=== PATIENT | male | born 1945 | race Two or more races ===

== ENCOUNTER 2022-05-07 11:58 | Inpatient (IN) | payer OTHER, MEDICARE, MEDICAID ==
[~2022-05-07] VITALS: Ht 175.3 cm; Wt 81.8 kg
[~2022-05-07 11:58] MED LIST: ALB0.5UD IH; AMLO2.5T2 PO; ASPI-1265 PO; CARB15DR2 OP; CHOL10002 PO; FLUO-167 PO; PROP40TA72 PO; SIMV-42 PO; TRIA15CR61 TOP
[2022-05-07 12:56] LABS: BASOPHILS # (AUTO) 0.1 X10'3 (0-0.2); BASOPHILS % (AUTO) 0.3 % (0-1); EOSINOPHILS % (AUTO) 0 % (0-6); HEMATOCRIT 41.3 % (42.0-52.0); HEMOGLOBIN 13.1 g/dl (14.0-17.9); LYMPHOCYTES # (AUTO) 0.6 X10'3 (1.1-4.8); LYMPHOCYTES % (AUTO) 2.5 % (21-51); MEAN CORPUSCULAR HEMOGLOBIN 29.7 PG (27.0-31.0); MEAN CORPUSCULAR HGB CONC 31.8 g/dL (33.0-36.5); MEAN CORPUSCULAR VOLUME 93.6 FL (78-98); MEAN PLATELET VOLUME 9.7 FL (7.4-10.4); MONOCYTES # (AUTO) 0.6 X10'3 (0-0.9); MONOCYTES % (AUTO) 2.3 % (2-12); NEUTROPHILS # (AUTO) 22.9 X10'3 (1.8-7.7); NEUTROPHILS % (AUTO) 94.9 % (42-75); PLATELET COUNT 261 X10'3 (140-440); RED BLOOD COUNT 4.42 X10'6 (4.70-6.10); RED CELL DISTRIBUTION WIDTH 14.3 % (11.5-14.5); WHITE BLOOD COUNT 24.2 X10'3 (4.5-11.0)
[2022-05-07 13:06] LABS: ALANINE AMINOTRANSFERASE 15 U/L (12-78); ALBUMIN 2.8 G/DL (3.4-5.0); ALBUMIN/GLOBULIN RATIO 0.6 (1.1-1.5); ALKALINE PHOSPHATASE 92 IU/L (46-116); ANION GAP 8 (8-16); ASPARTATE AMINO TRANSFERASE 11 U/L (10-37); BILIRUBIN,TOTAL 0.9 MG/DL (0.1-1.0); BLOOD UREA NITROGEN 49 MG/DL (7-18); BUN/CREATININE RATIO 22.8 (5.4-32.0); CALCIUM 9.4 MG/DL (8.5-10.1); CHLORIDE 99 MMOL/L (99-107); CREATININE 2.15 MG/DL (0.60-1.10); GLUCOSE 122 MG/DL (70-104); POTASSIUM 4.2 MMOL/L (3.5-5.1); SODIUM 140 MMOL/L (135-145); TOTAL CARBON DIOXIDE 33.5 MMOL/L (24-32); TOTAL PROTEIN 7.4 G/DL (6.4-8.2); eGFR 30 ML/MIN
[2022-05-07 13:24] LABS: PLATELET ESTIMATE NORMAL; TOTAL CELLS COUNTED 100; TOXIC GRANULATION 1+; TOXIC VACUOLATION FEW
[2022-05-07] MEDS ORDERED: normal saline 1000ml 1,000 ML IV ONE (13:30)
[2022-05-07] MEDS ORDERED: CefTRIAXone 2gm/D5W 50ml BAG 50 ML IV ONE (14:45)
[2022-05-07 14:46] LABS: CLARITY,URINE CLOUDY (Clear); COLOR,URINE YELLOW (Yellow); GLUCOSE, URINE NEGATIVE (Neg); KETONES,URINE NEGATIVE (Neg); LEUKOCYTE ESTERASE ,URINE SMALL (Neg); NITRITES, URINE NEGATIVE (Neg); OCCULT BLOOD,URINE MODERATE (Neg); PH,URINE 5.5 (4.8-8.0); PROTEIN,URINE 100 mg/dl (Neg)
[2022-05-07 14:47] LABS: UA COLLECTION TYPE STRAIGHT CATH
[2022-05-07 14:53] LABS: BACTERIA,URINE 3+ /HPF (Neg); WBC,URINE 50-100 /HPF (0-4)
[2022-05-07 14:54] LABS: MUCUS STRANDS MODERATE /LPF (Neg); SQUAMOUS EPITHELIAL CELL,UR NONE SEEN /LPF (FEW); WBC CLUMPS,URINE FEW /HPF (NEGATIVE)
[2022-05-07] MEDS ORDERED: normal saline 1000ML IV soln IVB ONE (15:40)
[2022-05-07] MEDS ORDERED: acetaminophen 325mg tablet PO PRN (16:15)
[2022-05-07] MEDS ORDERED: mag hydrox/Alum hydrox/simeth 30ml oral suspension PO PRN (16:15)
[2022-05-07] MEDS ORDERED: morphine 2 MG/ML inj. syringe IV PRN ×2 (16:15)
[2022-05-07] MEDS ORDERED: HYDROcodone/acetaminophen 5mg/325mg tablet PO PRN (16:15)
[2022-05-07] MEDS ORDERED: ALBU90AE INH (17:39)
[2022-05-07] MEDS ORDERED: ASCO-23 PO (17:39)
[2022-05-07] MEDS ORDERED: FERR324T23 PO (17:39)
[2022-05-07] MEDS ORDERED: AMLO10TA PO (17:39)
[2022-05-07] MEDS ORDERED: EMOL396C TOP (17:39)
[2022-05-07] MEDS ORDERED: ACET-1131 PO (17:39)
[2022-05-07] MEDS ORDERED: FLO0.4C PO (17:39)
[2022-05-07] MEDS ORDERED: METH-798 PO (17:39)
[2022-05-07] MEDS ORDERED: MOME13HF12 INH (17:39)
[2022-05-07] MEDS ORDERED: CARV25TA2 PO (17:39)
[2022-05-07] MEDS ORDERED: LISI20TA28 PO (17:39)
[2022-05-07] MEDS ORDERED: GUAI5SYR5 PO (17:39)
[2022-05-07] MEDS ORDERED: FURO-150 PO (17:39)
[2022-05-07] MEDS ORDERED: POLY119P2 PO (17:39)
[2022-05-07] MEDS ORDERED: TIOT18CA3 PO (17:39)
[2022-05-07] MEDS ORDERED: HYDR-4069 PO (17:39)
[2022-05-07] MEDS ORDERED: TRAM50TA2 PO (17:39)
[2022-05-07] MEDS: normal saline 1000ml 1,000 ML IV SCH (17:52)
[2022-05-07] MEDS ORDERED: non-formulary drug (Acetaminophen 1 TAB) PO PRN (17:55)
[2022-05-07] MEDS ORDERED: polyvinyl alcohol ophthalmic drops 15ml bottle EACHEYE PRN (17:55)
[2022-05-07] MEDS ORDERED: non-formulary drug (Albuterol Sulfate (Proair Respiclick) 2 PUFFS) INH PRN (17:55)
[2022-05-07] MEDS: ferrous gluconate 324mg tablet PO SCH (20:00)
[2022-05-07] MEDS: ipratropium/albuterol 3ml nebule NEB SCH (20:50)
[2022-05-07] MEDS: budesonide 0.5mg/2ml UD nebule IH SCH (20:51)
[2022-05-07] MEDS: mineral oil/petrolatum, white cream 60gm jar TP SCH (21:00)
[2022-05-08] MEDS: docusate sod 100mg capsule PO SCH ×3 (00:10→19:21)
[2022-05-08] MEDS: ascorbic acid 500mg tablet PO SCH ×3 (00:11→19:21)
[2022-05-08] MEDS: carVEDilol 12.5mg tablet PO SCH ×3 (00:11→19:21)
[2022-05-08] MEDS: ipratropium/albuterol 3ml nebule NEB SCH ×4 (02:07→20:10)
[2022-05-08] MEDS: normal saline 1000ml 1,000 ML IV SCH ×3 (02:15→17:24)
[2022-05-08 03:49] LABS: BASOPHILS % (AUTO) 0.1 % (0-1); EOSINOPHILS % (AUTO) 0.1 % (0-6); HEMATOCRIT 34.4 % (42.0-52.0); HEMOGLOBIN 11.1 g/dl (14.0-17.9); LYMPHOCYTES # (AUTO) 0.8 X10'3 (1.1-4.8); LYMPHOCYTES % (AUTO) 4.3 % (21-51); MEAN CORPUSCULAR HEMOGLOBIN 30.6 PG (27.0-31.0); MEAN CORPUSCULAR HGB CONC 32.2 g/dL (33.0-36.5); MEAN PLATELET VOLUME 9.3 FL (7.4-10.4); MONOCYTES # (AUTO) 0.6 X10'3 (0-0.9); MONOCYTES % (AUTO) 3.4 % (2-12); NEUTROPHILS # (AUTO) 16.7 X10'3 (1.8-7.7); NEUTROPHILS % (AUTO) 92.1 % (42-75); PLATELET COUNT 228 X10'3 (140-440); RED BLOOD COUNT 3.62 X10'6 (4.70-6.10); RED CELL DISTRIBUTION WIDTH 14.5 % (11.5-14.5); WHITE BLOOD COUNT 18.2 X10'3 (4.5-11.0)
[2022-05-08 04:00] LABS: ALBUMIN 2.2 G/DL (3.4-5.0); ANION GAP 7 (8-16); BLOOD UREA NITROGEN 49 MG/DL (7-18); BUN/CREATININE RATIO 26.2 (5.4-32.0); CALCIUM 9.2 MG/DL (8.5-10.1); CHLORIDE 106 MMOL/L (99-107); CREATININE 1.87 MG/DL (0.60-1.10); GLUCOSE 109 MG/DL (70-104); SODIUM 144 MMOL/L (135-145); TOTAL CARBON DIOXIDE 30.9 MMOL/L (24-32); eGFR 35 ML/MIN
[2022-05-08] MEDS: mineral oil/petrolatum, white cream 60gm jar TP SCH ×4 (08:00→21:58)
[2022-05-08] MEDS: polyethylene glycol 3350 17gm powd pack PO SCH (08:00)
--- NOTE | 2022-05-08 09:49 | NUR ---
Received patient to room 353 from ER in bed saturated with urine and stool. [place] care performed, new gown on and linens changed. Patient alert and oriented in no apparent acute distress and denies pain or discomfort at this time. Patient oriented to room and call lightl. Call light placed within patient's reach. Bed low and locked. Patient agreeable to condom cath. Patient states he does "not really get up out of bed" and has a caregiver that assist at home "4 times a week." Will continue to monitor.
[2022-05-08] MEDS: budesonide 0.5mg/2ml UD nebule IH SCH ×2 (09:50→20:10)
[2022-05-08] MEDS: cholecalciferol (vitamin D3) 1,000 unit (25mcg) tablet PO SCH ×2 (09:56→09:58)
[2022-05-08 09:57] VITALS: BP 131/77
[2022-05-08] MEDS: tamsulosin 0.4mg capsule PO SCH (09:58)
[2022-05-08] MEDS: amLODIPine 5mg tablet PO SCH (09:58)
[2022-05-08] MEDS: aspirin 81mg tab.chew PO SCH (09:59)
[2022-05-08] MEDS: FLUoxetine 20mg capsule PO SCH (09:59)
[2022-05-08] MEDS: enoxaparin 40mg/0.4ml syringe SUBCUT SCH (10:00)
[2022-05-08] MEDS: ferrous gluconate 324mg tablet PO SCH ×2 (10:02→19:21)
[2022-05-08] MEDS: CefTRIAXone/D5W-Rocephin 1gm 50 ML IV SCH (10:43)
[2022-05-08 18:49] VITALS: BP 155/81
[2022-05-08] MEDS: traMADol 50MG tablet PO PRN (19:21)
[2022-05-09] MEDS: ipratropium/albuterol 3ml nebule NEB SCH ×4 (03:18→20:31)
[2022-05-09] MEDS: normal saline 1000ml 1,000 ML IV SCH ×3 (03:47→22:59)
--- NOTE | 2022-05-09 06:23 | NUR ---
Problems reprioritized. Patient report given, questions answered & plan of care reviewed with RYAN Dela Cruz.
[2022-05-09 06:32] LABS: BASOPHILS % (AUTO) 0.1 % (0-1); EOSINOPHILS % (AUTO) 0.1 % (0-6); HEMOGLOBIN 10.5 g/dl (14.0-17.9); LYMPHOCYTES # (AUTO) 0.8 X10'3 (1.1-4.8); LYMPHOCYTES % (AUTO) 6.4 % (21-51); MEAN CORPUSCULAR HEMOGLOBIN 30.3 PG (27.0-31.0); MEAN CORPUSCULAR HGB CONC 31.9 g/dL (33.0-36.5); MEAN CORPUSCULAR VOLUME 94.8 FL (78-98); MEAN PLATELET VOLUME 9.6 FL (7.4-10.4); MONOCYTES # (AUTO) 0.8 X10'3 (0-0.9); MONOCYTES % (AUTO) 6.5 % (2-12); NEUTROPHILS % (AUTO) 86.9 % (42-75); PLATELET COUNT 209 X10'3 (140-440); RED BLOOD COUNT 3.48 X10'6 (4.70-6.10); RED CELL DISTRIBUTION WIDTH 14.4 % (11.5-14.5); WHITE BLOOD COUNT 12.7 X10'3 (4.5-11.0)
[2022-05-09 07:00] VITALS: BP 138/72
[2022-05-09 07:37] LABS: ALBUMIN 2.1 G/DL (3.4-5.0); ANION GAP 7 (8-16); BLOOD UREA NITROGEN 42 MG/DL (7-18); BUN/CREATININE RATIO 30.2 (5.4-32.0); CALCIUM 9.2 MG/DL (8.5-10.1); CHLORIDE 106 MMOL/L (99-107); CREATININE 1.39 MG/DL (0.60-1.10); GLUCOSE 103 MG/DL (70-104); POTASSIUM 3.7 MMOL/L (3.5-5.1); SODIUM 141 MMOL/L (135-145); TOTAL CARBON DIOXIDE 27.7 MMOL/L (24-32); eGFR 49 ML/MIN
[2022-05-09] MEDS: polyethylene glycol 3350 17gm powd pack PO SCH (08:00)
[2022-05-09] MEDS: docusate sod 100mg capsule PO SCH ×2 (08:00→20:00)
[2022-05-09] MEDS: aspirin 81mg tab.chew PO SCH (08:07)
[2022-05-09] MEDS: ferrous gluconate 324mg tablet PO SCH ×2 (08:07→20:13)
[2022-05-09] MEDS: enoxaparin 40mg/0.4ml syringe SUBCUT SCH (08:07)
[2022-05-09] MEDS: ascorbic acid 500mg tablet PO SCH ×2 (08:08→20:13)
[2022-05-09] MEDS: amLODIPine 5mg tablet PO SCH (08:08)
[2022-05-09] MEDS: carVEDilol 12.5mg tablet PO SCH ×2 (08:08→20:14)
[2022-05-09] MEDS: tamsulosin 0.4mg capsule PO SCH (08:08)
[2022-05-09] MEDS: FLUoxetine 20mg capsule PO SCH (08:08)
[2022-05-09] MEDS: mineral oil/petrolatum, white cream 60gm jar TP SCH ×4 (08:09→20:22)
[2022-05-09] MEDS: CefTRIAXone/D5W-Rocephin 1gm 50 ML IV SCH (08:09)
[2022-05-09] MEDS: budesonide 0.5mg/2ml UD nebule IH SCH ×2 (08:22→20:31)
[2022-05-09 11:00] VITALS: BP 123/74
--- NOTE | 2022-05-09 12:03 | NUR ---
Page sent to : Yazan YOON: daughter (lEi) would like to speak with you whenever you get a chance regarding discharge plan. her # is [phone]. thank you! :)
[2022-05-09 18:00] VITALS: BP 105/69
--- NOTE | 2022-05-09 18:11 | NUR ---
Problems reprioritized. Patient report given, questions answered & plan of care reviewed with RYAN ROBLES.
--- NOTE | 2022-05-09 18:30 | NUR ---
Patient in room [facility]. I have received report from Caruthers and had the opportunity to ask questions and assume patient care.
[2022-05-09 22:00] VITALS: BP 125/71
[2022-05-10] MEDS: ipratropium/albuterol 3ml nebule NEB SCH ×4 (03:23→20:12)
[2022-05-10 06:00] VITALS: BP 148/76
--- NOTE | 2022-05-10 06:14 | NUR ---
Problems reprioritized. Patient report given, questions answered & plan of care reviewed with Terese.
[2022-05-10 07:00] LABS: BASOPHILS % (AUTO) 0.1 % (0-1); EOSINOPHILS # (AUTO) 0.1 X10'3 (0-0.9); HEMOGLOBIN 10.6 g/dl (14.0-17.9); LYMPHOCYTES # (AUTO) 0.9 X10'3 (1.1-4.8); LYMPHOCYTES % (AUTO) 9.8 % (21-51); MEAN CORPUSCULAR HEMOGLOBIN 31.1 PG (27.0-31.0); MEAN CORPUSCULAR HGB CONC 33.1 g/dL (33.0-36.5); MEAN CORPUSCULAR VOLUME 93.9 FL (78-98); MEAN PLATELET VOLUME 9.1 FL (7.4-10.4); MONOCYTES # (AUTO) 0.8 X10'3 (0-0.9); MONOCYTES % (AUTO) 9.1 % (2-12); NEUTROPHILS # (AUTO) 7.2 X10'3 (1.8-7.7); PLATELET COUNT 207 X10'3 (140-440); RED BLOOD COUNT 3.41 X10'6 (4.70-6.10); RED CELL DISTRIBUTION WIDTH 14.5 % (11.5-14.5)
[2022-05-10 07:14] LABS: ALBUMIN 1.9 G/DL (3.4-5.0); ANION GAP 3 (8-16); BLOOD UREA NITROGEN 27 MG/DL (7-18); BUN/CREATININE RATIO 22.5 (5.4-32.0); CALCIUM 9.1 MG/DL (8.5-10.1); CHLORIDE 106 MMOL/L (99-107); GLUCOSE 105 MG/DL (70-104); POTASSIUM 3.4 MMOL/L (3.5-5.1); SODIUM 141 MMOL/L (135-145); eGFR 59 ML/MIN
--- NOTE | 2022-05-10 07:14 | NUR ---
Patient in room [facility]. I have received report from Nayeli DAVIS and had the opportunity to ask questions and assume patient care.
[2022-05-10] MEDS: docusate sod 100mg capsule PO SCH ×2 (08:00→20:00)
[2022-05-10] MEDS: CefTRIAXone/D5W-Rocephin 1gm 50 ML IV SCH (08:11)
[2022-05-10] MEDS: ferrous gluconate 324mg tablet PO SCH ×2 (08:15→21:17)
[2022-05-10] MEDS: aspirin 81mg tab.chew PO SCH (08:15)
[2022-05-10] MEDS: cholecalciferol (vitamin D3) 1,000 unit (25mcg) tablet PO SCH (08:15)
[2022-05-10] MEDS: carVEDilol 12.5mg tablet PO SCH ×2 (08:15→21:17)
[2022-05-10] MEDS: ascorbic acid 500mg tablet PO SCH ×2 (08:16→21:17)
[2022-05-10] MEDS: tamsulosin 0.4mg capsule PO SCH (08:17)
[2022-05-10] MEDS: FLUoxetine 20mg capsule PO SCH (08:17)
[2022-05-10] MEDS: amLODIPine 5mg tablet PO SCH (08:17)
[2022-05-10] MEDS: polyethylene glycol 3350 17gm powd pack PO SCH (08:18)
[2022-05-10] MEDS: mineral oil/petrolatum, white cream 60gm jar TP SCH ×4 (08:19→21:17)
[2022-05-10] MEDS: enoxaparin 40mg/0.4ml syringe SUBCUT SCH (08:19)
[2022-05-10] MEDS: budesonide 0.5mg/2ml UD nebule IH SCH ×2 (08:58→20:12)
[2022-05-10 10:00] VITALS: BP 124/78
--- NOTE | 2022-05-10 10:29 | NUR ---
PAGER ID: [phone] MESSAGE: [phone]- Adolfo Bonilla is 3.4. Do you want replacement protocol ordered?- Kiah [phone]
[2022-05-10 11:21] VITALS: BP 124/78
[2022-05-10] MEDS: normal saline 1000ml 1,000 ML IV SCH (14:15)
[2022-05-10 18:00] VITALS: BP 134/73
--- NOTE | 2022-05-10 18:48 | NUR ---
Problems reprioritized. Patient report given, questions answered & plan of care reviewed with RYAN Renteria.
[2022-05-10 22:00] VITALS: BP 129/77
[2022-05-11] MEDS: normal saline 1000ml 1,000 ML IV SCH ×3 (00:15→20:15)
[2022-05-11] MEDS: ipratropium/albuterol 3ml nebule NEB SCH ×4 (03:42→19:59)
[2022-05-11 05:59] LABS: BASOPHILS % (AUTO) 0.4 % (0-1); EOSINOPHILS # (AUTO) 0.1 X10'3 (0-0.9); EOSINOPHILS % (AUTO) 1.6 % (0-6); HEMOGLOBIN 10.9 g/dl (14.0-17.9); LYMPHOCYTES # (AUTO) 1.2 X10'3 (1.1-4.8); LYMPHOCYTES % (AUTO) 13.4 % (21-51); MEAN CORPUSCULAR HEMOGLOBIN 30.7 PG (27.0-31.0); MEAN CORPUSCULAR HGB CONC 33.2 g/dL (33.0-36.5); MEAN CORPUSCULAR VOLUME 92.6 FL (78-98); MEAN PLATELET VOLUME 9.5 FL (7.4-10.4); MONOCYTES # (AUTO) 0.8 X10'3 (0-0.9); MONOCYTES % (AUTO) 8.4 % (2-12); NEUTROPHILS # (AUTO) 6.9 X10'3 (1.8-7.7); NEUTROPHILS % (AUTO) 76.2 % (42-75); PLATELET COUNT 226 X10'3 (140-440); RED BLOOD COUNT 3.56 X10'6 (4.70-6.10); RED CELL DISTRIBUTION WIDTH 13.9 % (11.5-14.5); WHITE BLOOD COUNT 9.1 X10'3 (4.5-11.0)
[2022-05-11 06:00] LABS: ANION GAP 6 (8-16); BLOOD UREA NITROGEN 23 MG/DL (7-18); BUN/CREATININE RATIO 20.2 (5.4-32.0); CALCIUM 9.6 MG/DL (8.5-10.1); CHLORIDE 104 MMOL/L (99-107); CREATININE 1.14 MG/DL (0.60-1.10); GLUCOSE 110 MG/DL (70-104); POTASSIUM 3.7 MMOL/L (3.5-5.1); SODIUM 143 MMOL/L (135-145); TOTAL CARBON DIOXIDE 33.5 MMOL/L (24-32); eGFR 62 ML/MIN
--- NOTE | 2022-05-11 07:01 | NUR ---
Patient in room [facility]. I have received report from AVA DAVIS and had the opportunity to ask questions and assume patient care.
[2022-05-11 07:07] VITALS: BP 135/60
[2022-05-11] MEDS: aspirin 81mg tab.chew PO SCH (08:41)
[2022-05-11] MEDS: ferrous gluconate 324mg tablet PO SCH ×2 (08:42→20:07)
[2022-05-11] MEDS: docusate sod 100mg capsule PO SCH ×2 (08:42→20:06)
[2022-05-11] MEDS: carVEDilol 12.5mg tablet PO SCH ×2 (08:42→20:06)
[2022-05-11] MEDS: tamsulosin 0.4mg capsule PO SCH (08:43)
[2022-05-11] MEDS: ascorbic acid 500mg tablet PO SCH ×2 (08:43→20:06)
[2022-05-11] MEDS: FLUoxetine 20mg capsule PO SCH (08:43)
[2022-05-11] MEDS: amLODIPine 5mg tablet PO SCH (08:43)
[2022-05-11] MEDS: polyethylene glycol 3350 17gm powd pack PO SCH (08:44)
[2022-05-11] MEDS: CefTRIAXone/D5W-Rocephin 1gm 50 ML IV SCH (08:44)
[2022-05-11] MEDS: cholecalciferol (vitamin D3) 1,000 unit (25mcg) tablet PO SCH (08:44)
[2022-05-11] MEDS: mineral oil/petrolatum, white cream 60gm jar TP SCH ×4 (08:45→20:15)
[2022-05-11] MEDS: enoxaparin 40mg/0.4ml syringe SUBCUT SCH (08:45)
[2022-05-11] MEDS: budesonide 0.5mg/2ml UD nebule IH SCH ×2 (09:13→19:58)
[2022-05-11 10:00] VITALS: BP 112/71
--- NOTE | 2022-05-11 18:27 | NUR ---
Problems reprioritized. Patient report given, questions answered & plan of care reviewed with ROBBY DAVIS.
[2022-05-11 19:00] VITALS: BP 129/79
--- NOTE | 2022-05-11 19:00 | NUR ---
Patient in room [facility]. I have received report from RYAN Augustin and had the opportunity to ask questions and assume patient care. Addendum: 05/11/22 at 1903 by Ana Au RN Amended: Links added.
[2022-05-11] MEDS: magnesium hydroxide 30ml (MOM) UD suspension PO PRN (20:05)
[2022-05-11] MEDS: acetaminophen 325mg tablet PO PRN (20:08)
[2022-05-11 22:00] VITALS: BP 138/81
[2022-05-12] MEDS: ipratropium/albuterol 3ml nebule NEB SCH ×4 (02:54→20:12)
[2022-05-12 05:42] LABS: BASOPHILS % (AUTO) 0.3 % (0-1); EOSINOPHILS # (AUTO) 0.2 X10'3 (0-0.9); HEMATOCRIT 32.6 % (42.0-52.0); HEMOGLOBIN 10.9 g/dl (14.0-17.9); LYMPHOCYTES # (AUTO) 1.4 X10'3 (1.1-4.8); LYMPHOCYTES % (AUTO) 17.1 % (21-51); MEAN CORPUSCULAR HEMOGLOBIN 30.7 PG (27.0-31.0); MEAN CORPUSCULAR HGB CONC 33.3 g/dL (33.0-36.5); MEAN CORPUSCULAR VOLUME 92.3 FL (78-98); MEAN PLATELET VOLUME 8.8 FL (7.4-10.4); MONOCYTES # (AUTO) 0.7 X10'3 (0-0.9); MONOCYTES % (AUTO) 8.7 % (2-12); NEUTROPHILS % (AUTO) 71.9 % (42-75); PLATELET COUNT 269 X10'3 (140-440); RED BLOOD COUNT 3.54 X10'6 (4.70-6.10); RED CELL DISTRIBUTION WIDTH 14.2 % (11.5-14.5); WHITE BLOOD COUNT 8.4 X10'3 (4.5-11.0)
[2022-05-12 05:51] LABS: ANION GAP 3 (8-16); BLOOD UREA NITROGEN 22 MG/DL (7-18); BUN/CREATININE RATIO 21.4 (5.4-32.0); CALCIUM 9.6 MG/DL (8.5-10.1); CHLORIDE 103 MMOL/L (99-107); CREATININE 1.03 MG/DL (0.60-1.10); GLUCOSE 115 MG/DL (70-104); POTASSIUM 3.5 MMOL/L (3.5-5.1); SODIUM 144 MMOL/L (135-145); TOTAL CARBON DIOXIDE 38.3 MMOL/L (24-32); eGFR 70 ML/MIN
[2022-05-12 07:11] VITALS: BP 142/81
[2022-05-12 07:11] LABS: PLATELET ESTIMATE NORMAL; TOTAL CELLS COUNTED 100
[2022-05-12] MEDS: budesonide 0.5mg/2ml UD nebule IH SCH ×2 (08:20→20:12)
[2022-05-12] MEDS: ferrous gluconate 324mg tablet PO SCH ×2 (09:03→21:39)
[2022-05-12] MEDS: tamsulosin 0.4mg capsule PO SCH (09:03)
[2022-05-12] MEDS: polyethylene glycol 3350 17gm powd pack PO SCH (09:03)
[2022-05-12] MEDS: aspirin 81mg tab.chew PO SCH (09:04)
[2022-05-12] MEDS: cholecalciferol (vitamin D3) 1,000 unit (25mcg) tablet PO SCH (09:04)
[2022-05-12] MEDS: ascorbic acid 500mg tablet PO SCH ×2 (09:05→21:38)
[2022-05-12] MEDS: amLODIPine 5mg tablet PO SCH (09:05)
[2022-05-12] MEDS: docusate sod 100mg capsule PO SCH ×2 (09:05→21:37)
[2022-05-12] MEDS: carVEDilol 12.5mg tablet PO SCH ×2 (09:06→21:40)
[2022-05-12] MEDS: FLUoxetine 20mg capsule PO SCH (09:06)
[2022-05-12] MEDS: CefTRIAXone/D5W-Rocephin 1gm 50 ML IV SCH (09:07)
[2022-05-12] MEDS: enoxaparin 40mg/0.4ml syringe SUBCUT SCH (09:07)
[2022-05-12] MEDS: mineral oil/petrolatum, white cream 60gm jar TP SCH ×4 (09:13→21:40)
[2022-05-12 10:57] VITALS: BP 128/78
--- NOTE | 2022-05-12 12:29 | NUR ---
Initial: Pt admit DX acute metabolic encephalopathy secondary to UTI-now resolved, sepsis secondary to UTI, DEREK, and COPD per EMR. PO fluctuates ~53% avg initial heart healthy meals up to 100% at times though overall partially meeting estimated needs. DUC recommends Ensure Plus High Protein TIDWM; notified. LBM 05/08 receiving routine Fe but also colace, miralax, and PRN MoM provided 05/11 per EMR; constipation likely to influence PO. Will monitor for further nutrition intervention needs this admit. Rec: 1. continue heart healthy diet; if poor PO trends persist liberalize to regular; encourage PO 2. Ensure Plus High Protein TIDWM; pending physician verification in EMR 3. routine bowel regimen; utilize PRN bowel care given 4 days constipation receiving PO Fe 4. weekly wts Addendum: 05/12/22 at [address] Amended: Links added.
[2022-05-12 18:00] VITALS: BP 142/74
--- NOTE | 2022-05-12 18:30 | NUR ---
Patient in room [facility]. I have received report from Charli DAVIS and had the opportunity to ask questions and assume patient care.
--- NOTE | 2022-05-12 19:00 | NUR ---
Problems reprioritized. Patient report given, questions answered & plan of care reviewed with Snehal DAVIS.
[2022-05-12 21:42] VITALS: BP 135/75
[2022-05-12] MEDS: PEG 400/HYPROMELLOSE/GLYCERIN 15ml bottle EACHEYE PRN (21:59)
[2022-05-13] VITALS: BP 132/69
[2022-05-13] MEDS: ipratropium/albuterol 3ml nebule NEB SCH ×4 (02:41→20:17)
[2022-05-13 06:00] VITALS: BP 127/64
--- NOTE | 2022-05-13 06:20 | NUR ---
Problems reprioritized. Patient report given, questions answered & plan of care reviewed with Charli RN.
[2022-05-13] MEDS: tamsulosin 0.4mg capsule PO SCH (07:53)
[2022-05-13] MEDS: docusate sod 100mg capsule PO SCH ×2 (07:53→19:25)
[2022-05-13] MEDS: aspirin 81mg tab.chew PO SCH (07:53)
[2022-05-13] MEDS: FLUoxetine 20mg capsule PO SCH (07:53)
[2022-05-13] MEDS: amLODIPine 5mg tablet PO SCH (07:54)
[2022-05-13] MEDS: cholecalciferol (vitamin D3) 1,000 unit (25mcg) tablet PO SCH (07:54)
[2022-05-13] MEDS: ferrous gluconate 324mg tablet PO SCH ×2 (07:54→19:25)
[2022-05-13] MEDS: ascorbic acid 500mg tablet PO SCH ×2 (07:54→19:25)
[2022-05-13] MEDS: carVEDilol 12.5mg tablet PO SCH ×2 (07:55→19:24)
[2022-05-13] MEDS: polyethylene glycol 3350 17gm powd pack PO SCH (07:55)
[2022-05-13] MEDS: mineral oil/petrolatum, white cream 60gm jar TP SCH ×4 (07:56→19:25)
[2022-05-13] MEDS: enoxaparin 40mg/0.4ml syringe SUBCUT SCH (07:56)
[2022-05-13] MEDS: CefTRIAXone/D5W-Rocephin 1gm 50 ML IV SCH (07:57)
[2022-05-13] MEDS: budesonide 0.5mg/2ml UD nebule IH SCH ×2 (08:30→20:17)
[2022-05-13 11:00] VITALS: BP 114/64
[2022-05-13 18:00] VITALS: BP 110/46
--- NOTE | 2022-05-13 18:38 | NUR ---
Problems reprioritized. Patient report given, questions answered & plan of care reviewed with Ashly DAVIS.
[2022-05-13 22:00] VITALS: BP 130/74
[2022-05-13] MEDS: traMADol 50MG tablet PO PRN (22:54)
[2022-05-14] MEDS: ipratropium/albuterol 3ml nebule NEB SCH ×4 (03:52→20:06)
[2022-05-14 06:00] VITALS: BP 138/60
--- NOTE | 2022-05-14 06:30 | NUR ---
Problems reprioritized. Patient report given, questions answered & plan of care reviewed with RYAN TOTH.
--- NOTE | 2022-05-14 06:46 | NUR ---
Patient in room [facility]. I have received report from Ashly DAVIS and had the opportunity to ask questions and assume patient care.
[2022-05-14] MEDS: docusate sod 100mg capsule PO SCH ×2 (07:46→19:36)
[2022-05-14] MEDS: FLUoxetine 20mg capsule PO SCH (07:47)
[2022-05-14] MEDS: tamsulosin 0.4mg capsule PO SCH (07:47)
[2022-05-14] MEDS: carVEDilol 12.5mg tablet PO SCH ×2 (07:48→19:36)
[2022-05-14] MEDS: aspirin 81mg tab.chew PO SCH (07:48)
[2022-05-14] MEDS: amLODIPine 5mg tablet PO SCH (07:48)
[2022-05-14] MEDS: ferrous gluconate 324mg tablet PO SCH ×2 (07:49→19:36)
[2022-05-14] MEDS: polyethylene glycol 3350 17gm powd pack PO SCH (07:49)
[2022-05-14] MEDS: CefTRIAXone/D5W-Rocephin 1gm 50 ML IV SCH (07:49)
[2022-05-14] MEDS: ascorbic acid 500mg tablet PO SCH ×2 (07:49→19:36)
[2022-05-14] MEDS: cholecalciferol (vitamin D3) 1,000 unit (25mcg) tablet PO SCH (07:49)
[2022-05-14] MEDS: enoxaparin 40mg/0.4ml syringe SUBCUT SCH (07:51)
[2022-05-14] MEDS: mineral oil/petrolatum, white cream 60gm jar TP SCH ×4 (07:51→19:36)
[2022-05-14] MEDS: traMADol 50MG tablet PO PRN (07:59)
[2022-05-14] MEDS: budesonide 0.5mg/2ml UD nebule IH SCH ×2 (08:20→20:06)
[2022-05-14 11:58] VITALS: BP 95/41
[2022-05-14 12:22] VITALS: BP 101/68
--- NOTE | 2022-05-14 18:19 | NUR ---
Problems reprioritized. Patient report given, questions answered & plan of care reviewed with EDGARDO DAVIS.
[2022-05-14 21:59] VITALS: BP 125/75
[2022-05-15] MEDS: ipratropium/albuterol 3ml nebule NEB SCH ×4 (02:58→20:19)
[2022-05-15 07:00] VITALS: BP 129/74
--- NOTE | 2022-05-15 07:01 | NUR ---
Problems reprioritized. Patient report given, questions answered & plan of care reviewed with kait Soto.
[2022-05-15] MEDS: polyethylene glycol 3350 17gm powd pack PO SCH (08:00)
[2022-05-15] MEDS: budesonide 0.5mg/2ml UD nebule IH SCH ×2 (08:04→20:19)
[2022-05-15] MEDS: CefTRIAXone/D5W-Rocephin 1gm 50 ML IV SCH (08:42)
[2022-05-15] MEDS: aspirin 81mg tab.chew PO SCH (08:43)
[2022-05-15] MEDS: enoxaparin 40mg/0.4ml syringe SUBCUT SCH (08:43)
[2022-05-15] MEDS: ascorbic acid 500mg tablet PO SCH ×2 (08:44→21:32)
[2022-05-15] MEDS: FLUoxetine 20mg capsule PO SCH (08:44)
[2022-05-15] MEDS: cyclobenzaprine 10mg tablet PO PRN ×2 (08:44→21:32)
[2022-05-15] MEDS: tamsulosin 0.4mg capsule PO SCH (08:44)
[2022-05-15] MEDS: cholecalciferol (vitamin D3) 1,000 unit (25mcg) tablet PO SCH (08:45)
[2022-05-15] MEDS: carVEDilol 12.5mg tablet PO SCH ×2 (08:45→21:33)
[2022-05-15] MEDS: ferrous gluconate 324mg tablet PO SCH ×2 (08:45→21:32)
[2022-05-15] MEDS: docusate sod 100mg capsule PO SCH ×2 (08:46→20:00)
[2022-05-15] MEDS: amLODIPine 5mg tablet PO SCH (08:48)
[2022-05-15] MEDS: mineral oil/petrolatum, white cream 60gm jar TP SCH ×4 (08:48→21:33)
--- NOTE | 2022-05-15 13:14 | NUR ---
[address] [employer] did not scan
[2022-05-15 14:46] VITALS: BP 103/64
[2022-05-15 18:00] VITALS: BP 137/71
[2022-05-15] MEDS: ondansetron/PF 4mg/2ml inj IV PRN (21:32)
[2022-05-15 21:33] VITALS: BP 123/76
[2022-05-16] MEDS: ipratropium/albuterol 3ml nebule NEB SCH ×4 (03:44→20:05)
--- NOTE | 2022-05-16 06:40 | NUR ---
Problems reprioritized. Patient report given, questions answered & plan of care reviewed with RYAN MCKEON.
[2022-05-16 07:32] VITALS: BP 117/69
[2022-05-16] MEDS: docusate sod 100mg capsule PO SCH ×2 (08:00→20:00)
[2022-05-16] MEDS: polyethylene glycol 3350 17gm powd pack PO SCH (08:00)
[2022-05-16] MEDS: budesonide 0.5mg/2ml UD nebule IH SCH ×2 (09:06→20:05)
[2022-05-16] MEDS: FLUoxetine 20mg capsule PO SCH (09:18)
[2022-05-16] MEDS: cholecalciferol (vitamin D3) 1,000 unit (25mcg) tablet PO SCH (09:19)
[2022-05-16] MEDS: ascorbic acid 500mg tablet PO SCH ×2 (09:19→20:00)
[2022-05-16] MEDS: tamsulosin 0.4mg capsule PO SCH (09:19)
[2022-05-16] MEDS: PEG 400/HYPROMELLOSE/GLYCERIN 15ml bottle EACHEYE PRN (09:20)
[2022-05-16] MEDS: carVEDilol 12.5mg tablet PO SCH ×2 (09:20→20:00)
[2022-05-16] MEDS: aspirin 81mg tab.chew PO SCH (09:20)
[2022-05-16] MEDS: amLODIPine 5mg tablet PO SCH (09:20)
[2022-05-16] MEDS: ferrous gluconate 324mg tablet PO SCH ×2 (09:20→20:00)
[2022-05-16] MEDS: enoxaparin 40mg/0.4ml syringe SUBCUT SCH (09:21)
[2022-05-16] MEDS: traMADol 50MG tablet PO PRN ×2 (09:24→20:00)
[2022-05-16] MEDS: mineral oil/petrolatum, white cream 60gm jar TP SCH ×4 (09:29→20:06)
[2022-05-16 11:00] VITALS: BP 94/59
--- NOTE | 2022-05-16 11:48 | NUR ---
Reassessment: PO intake has significantly improved, documented with average 89% PO intake since 05/13 meeting 100% estimated energy needs and 79% estimated protein needs. ONS still pending physician approval in EMR though may not be indicated in view of improved PO intake. See nutrition interventions below that were d/w dietary to provide additional nutrition. LBM 05/15. Will continue to follow. Recommendations: 1. Continue heart healthy diet 2. Ensure Plus High Protein TIDWM; pending physician verification in EMR though may no longer be indicated in d/t improved meal intake 3. Yogurt WB, smoothie BIDLD 4. Routine bowel care 5. Weekly scaled weights Addendum: 05/16/22 at [address] Amended: Links added.
[2022-05-16] MEDS: ondansetron/PF 4mg/2ml inj IV PRN (13:57)
[2022-05-16 18:00] VITALS: BP 105/66
[2022-05-16 19:56] VITALS: BP 106/63
[2022-05-16 22:00] VITALS: BP_SYST 101; BP_SYST 137; BP_DIAS 57; BP_DIAS 86
[2022-05-17] MEDS: ipratropium/albuterol 3ml nebule NEB SCH ×4 (03:32→20:36)
[2022-05-17 05:30] VITALS: BP 119/76
--- NOTE | 2022-05-17 06:30 | NUR ---
Patient in room [facility]. I have received report from RYAN Worthy and had the opportunity to ask questions and assume patient care.
--- NOTE | 2022-05-17 06:44 | NUR ---
Problems reprioritized. Patient report given, questions answered & plan of care reviewed with RYAN MA.
[2022-05-17] MEDS ORDERED: mineral oil/petrolatum, white cream 60gm jar TP PRN (07:35)
[2022-05-17] MEDS ORDERED: MINERAL OIL/PETROLATUM,WHITE CREAM 107 GM TUBE TP PRN (07:44)
[2022-05-17] MEDS: budesonide 0.5mg/2ml UD nebule IH SCH ×2 (07:56→20:36)
[2022-05-17 08:12] LABS: BASOPHILS # (AUTO) 0.1 X10'3 (0-0.2); BASOPHILS % (AUTO) 0.6 % (0-1); EOSINOPHILS # (AUTO) 0.2 X10'3 (0-0.9); EOSINOPHILS % (AUTO) 1.6 % (0-6); HEMATOCRIT 36.2 % (42.0-52.0); HEMOGLOBIN 11.7 g/dl (14.0-17.9); LYMPHOCYTES # (AUTO) 1.8 X10'3 (1.1-4.8); LYMPHOCYTES % (AUTO) 15.8 % (21-51); MEAN CORPUSCULAR HEMOGLOBIN 29.8 PG (27.0-31.0); MEAN CORPUSCULAR HGB CONC 32.2 g/dL (33.0-36.5); MEAN CORPUSCULAR VOLUME 92.6 FL (78-98); MEAN PLATELET VOLUME 8.2 FL (7.4-10.4); MONOCYTES # (AUTO) 0.7 X10'3 (0-0.9); MONOCYTES % (AUTO) 5.9 % (2-12); NEUTROPHILS # (AUTO) 8.7 X10'3 (1.8-7.7); NEUTROPHILS % (AUTO) 76.1 % (42-75); PLATELET COUNT 388 X10'3 (140-440); RED BLOOD COUNT 3.91 X10'6 (4.70-6.10); RED CELL DISTRIBUTION WIDTH 14.5 % (11.5-14.5); WHITE BLOOD COUNT 11.4 X10'3 (4.5-11.0)
[2022-05-17 09:20] LABS: PLATELET ESTIMATE NORMAL; TOTAL CELLS COUNTED 100
[2022-05-17 09:23] LABS: ALANINE AMINOTRANSFERASE 39 U/L (12-78); ALBUMIN 2.4 G/DL (3.4-5.0); ALBUMIN/GLOBULIN RATIO 0.6 (1.1-1.5); ALKALINE PHOSPHATASE 93 IU/L (46-116); ANION GAP 3 (8-16); ASPARTATE AMINO TRANSFERASE 23 U/L (10-37); BILIRUBIN,TOTAL 0.3 MG/DL (0.1-1.0); BLOOD UREA NITROGEN 24 MG/DL (7-18); BUN/CREATININE RATIO 20.7 (5.4-32.0); CALCIUM 9.8 MG/DL (8.5-10.1); CHLORIDE 98 MMOL/L (99-107); CREATININE 1.16 MG/DL (0.60-1.10); GLUCOSE 98 MG/DL (70-104); POTASSIUM 4.9 MMOL/L (3.5-5.1); SODIUM 141 MMOL/L (135-145); TOTAL CARBON DIOXIDE 39.7 MMOL/L (24-32); TOTAL PROTEIN 6.5 G/DL (6.4-8.2); eGFR 61 ML/MIN
[2022-05-17] MEDS: CefTRIAXone 2gm/D5W 50ml BAG 50 ML IV SCH (09:43)
[2022-05-17] MEDS: polyethylene glycol 3350 17gm powd pack PO SCH (09:47)
[2022-05-17] MEDS: aspirin 81mg tab.chew PO SCH (09:48)
[2022-05-17] MEDS: ferrous gluconate 324mg tablet PO SCH ×2 (09:48→19:19)
[2022-05-17] MEDS: docusate sod 100mg capsule PO SCH ×2 (09:48→20:00)
[2022-05-17] MEDS: cholecalciferol (vitamin D3) 1,000 unit (25mcg) tablet PO SCH (09:48)
[2022-05-17] MEDS: amLODIPine 5mg tablet PO SCH (09:48)
[2022-05-17] MEDS: tamsulosin 0.4mg capsule PO SCH (09:48)
[2022-05-17] MEDS: carVEDilol 12.5mg tablet PO SCH ×2 (09:49→19:19)
[2022-05-17] MEDS: ascorbic acid 500mg tablet PO SCH ×2 (09:49→19:19)
[2022-05-17] MEDS: FLUoxetine 20mg capsule PO SCH (09:49)
[2022-05-17] MEDS: enoxaparin 40mg/0.4ml syringe SUBCUT SCH (09:50)
[2022-05-17 10:00] VITALS: BP 100/58
[2022-05-17 18:00] VITALS: BP 110/59
[2022-05-17] MEDS: acetaminophen 325mg tablet PO PRN (19:20)
[2022-05-17] MEDS: cyclobenzaprine 10mg tablet PO PRN (19:20)
[2022-05-17 22:00] VITALS: BP 95/57
[2022-05-18] MEDS: ipratropium/albuterol 3ml nebule NEB SCH ×4 (03:34→20:18)
--- NOTE | 2022-05-18 06:10 | NUR ---
Patient in room [facility]. I have received report from RYAN Solomon and had the opportunity to ask questions and assume patient care.
[2022-05-18 06:30] VITALS: BP 116/70
[2022-05-18] MEDS: budesonide 0.5mg/2ml UD nebule IH SCH ×2 (07:46→20:19)
[2022-05-18 11:00] VITALS: BP 95/57
[2022-05-18] MEDS: polyethylene glycol 3350 17gm powd pack PO SCH (11:27)
[2022-05-18] MEDS: docusate sod 100mg capsule PO SCH ×2 (11:28→19:30)
[2022-05-18] MEDS: cholecalciferol (vitamin D3) 1,000 unit (25mcg) tablet PO SCH (11:28)
[2022-05-18] MEDS: ferrous gluconate 324mg tablet PO SCH ×2 (11:28→19:30)
[2022-05-18] MEDS: CefTRIAXone 2gm/D5W 50ml BAG 50 ML IV SCH (11:28)
[2022-05-18] MEDS: carVEDilol 12.5mg tablet PO SCH ×2 (11:28→19:33)
[2022-05-18] MEDS: tamsulosin 0.4mg capsule PO SCH (11:28)
[2022-05-18] MEDS: FLUoxetine 20mg capsule PO SCH (11:28)
[2022-05-18] MEDS: traMADol 50MG tablet PO PRN (11:29)
[2022-05-18] MEDS: amLODIPine 5mg tablet PO SCH (11:29)
[2022-05-18] MEDS: aspirin 81mg tab.chew PO SCH (11:29)
[2022-05-18] MEDS: ascorbic acid 500mg tablet PO SCH ×2 (11:30→19:30)
[2022-05-18] MEDS: enoxaparin 40mg/0.4ml syringe SUBCUT SCH (11:31)
[2022-05-18 18:00] VITALS: BP 98/50
--- NOTE | 2022-05-18 18:27 | NUR ---
Patient in room [facility]. I have received report from Tsering DAVIS and had the opportunity to ask questions and assume patient care.
--- NOTE | 2022-05-18 18:30 | NUR ---
Problems reprioritized. Patient report given, questions answered & plan of care reviewed with RYAN Sanchez.
[2022-05-18 22:00] VITALS: BP 106/70
--- NOTE | 2022-05-18 23:50 | NUR ---
Condom catheter leaking, new one placed. patient and draining no leaks observed, will continue to monitor
[2022-05-19] MEDS: ipratropium/albuterol 3ml nebule NEB SCH ×4 (03:37→20:21)
[2022-05-19 05:30] VITALS: BP 101/65
--- NOTE | 2022-05-19 06:09 | NUR ---
Problems reprioritized. Patient report given, questions answered & plan of care reviewed with Tsering Rn.
--- NOTE | 2022-05-19 06:40 | NUR ---
Patient in room [facility]. I have received report from RYAN Sanchez and had the opportunity to ask questions and assume patient care.
[2022-05-19] MEDS: carVEDilol 12.5mg tablet PO SCH ×2 (08:00→19:25)
[2022-05-19] MEDS: budesonide 0.5mg/2ml UD nebule IH SCH ×2 (09:15→20:21)
[2022-05-19 10:00] VITALS: BP 102/68
[2022-05-19] MEDS: amLODIPine 5mg tablet PO SCH (10:35)
[2022-05-19] MEDS: CefTRIAXone 2gm/D5W 50ml BAG 50 ML IV SCH (10:43)
[2022-05-19] MEDS: aspirin 81mg tab.chew PO SCH (10:46)
[2022-05-19] MEDS: FLUoxetine 20mg capsule PO SCH (10:46)
[2022-05-19] MEDS: docusate sod 100mg capsule PO SCH ×2 (10:46→19:25)
[2022-05-19] MEDS: tamsulosin 0.4mg capsule PO SCH (10:46)
[2022-05-19] MEDS: polyethylene glycol 3350 17gm powd pack PO SCH (10:48)
[2022-05-19] MEDS: cholecalciferol (vitamin D3) 1,000 unit (25mcg) tablet PO SCH (10:48)
[2022-05-19] MEDS: ferrous gluconate 324mg tablet PO SCH ×2 (10:48→19:25)
[2022-05-19] MEDS: ascorbic acid 500mg tablet PO SCH ×2 (10:48→19:25)
[2022-05-19] MEDS: enoxaparin 40mg/0.4ml syringe SUBCUT SCH (10:49)
[2022-05-19 18:00] VITALS: BP 121/86
--- NOTE | 2022-05-19 18:20 | NUR ---
Problems reprioritized. Patient report given, questions answered & plan of care reviewed with RYAN Worthy.
[2022-05-19 19:18] VITALS: BP 117/68
[2022-05-19] MEDS: traMADol 50MG tablet PO PRN (19:37)
[2022-05-19 22:00] VITALS: BP 110/58
[2022-05-20] MEDS: ipratropium/albuterol 3ml nebule NEB SCH ×4 (03:22→20:11)
[2022-05-20 05:45] LABS: BASOPHILS % (AUTO) 0.4 % (0-1); EOSINOPHILS # (AUTO) 0.3 X10'3 (0-0.9); EOSINOPHILS % (AUTO) 2.6 % (0-6); HEMATOCRIT 34.4 % (42.0-52.0); HEMOGLOBIN 11.4 g/dl (14.0-17.9); LYMPHOCYTES # (AUTO) 2.2 X10'3 (1.1-4.8); LYMPHOCYTES % (AUTO) 22.7 % (21-51); MEAN CORPUSCULAR HEMOGLOBIN 30.7 PG (27.0-31.0); MEAN CORPUSCULAR HGB CONC 33.3 g/dL (33.0-36.5); MEAN CORPUSCULAR VOLUME 92.3 FL (78-98); MEAN PLATELET VOLUME 8.3 FL (7.4-10.4); MONOCYTES # (AUTO) 0.8 X10'3 (0-0.9); MONOCYTES % (AUTO) 8.1 % (2-12); NEUTROPHILS # (AUTO) 6.4 X10'3 (1.8-7.7); NEUTROPHILS % (AUTO) 66.2 % (42-75); PLATELET COUNT 376 X10'3 (140-440); RED BLOOD COUNT 3.73 X10'6 (4.70-6.10); RED CELL DISTRIBUTION WIDTH 14.3 % (11.5-14.5); WHITE BLOOD COUNT 9.7 X10'3 (4.5-11.0)
[2022-05-20 06:00] VITALS: BP 114/62
[2022-05-20 06:19] LABS: ALANINE AMINOTRANSFERASE 39 U/L (12-78); ALBUMIN 2.5 G/DL (3.4-5.0); ALBUMIN/GLOBULIN RATIO 0.6 (1.1-1.5); ALKALINE PHOSPHATASE 96 IU/L (46-116); ANION GAP 1 (8-16); ASPARTATE AMINO TRANSFERASE 27 U/L (10-37); BILIRUBIN,TOTAL 0.2 MG/DL (0.1-1.0); BLOOD UREA NITROGEN 34 MG/DL (7-18); BUN/CREATININE RATIO 26.2 (5.4-32.0); CALCIUM 9.8 MG/DL (8.5-10.1); CHLORIDE 101 MMOL/L (99-107); GLUCOSE 102 MG/DL (70-104); POTASSIUM 4.9 MMOL/L (3.5-5.1); SODIUM 141 MMOL/L (135-145); TOTAL CARBON DIOXIDE 39.5 MMOL/L (24-32); TOTAL PROTEIN 6.6 G/DL (6.4-8.2); eGFR 53 ML/MIN
--- NOTE | 2022-05-20 06:28 | NUR ---
Problems reprioritized. Patient report given, questions answered & plan of care reviewed with RYAN VARELA.
[2022-05-20 08:27] LABS: LARGE PLATELETS FEW; PLATELET ESTIMATE NORMAL
[2022-05-20] MEDS: CefTRIAXone 2gm/D5W 50ml BAG 50 ML IV SCH (08:47)
[2022-05-20] MEDS: aspirin 81mg tab.chew PO SCH (08:48)
[2022-05-20] MEDS: polyethylene glycol 3350 17gm powd pack PO SCH (08:48)
[2022-05-20] MEDS: enoxaparin 40mg/0.4ml syringe SUBCUT SCH (08:49)
[2022-05-20] MEDS: FLUoxetine 20mg capsule PO SCH (08:50)
[2022-05-20] MEDS: amLODIPine 5mg tablet PO SCH (08:50)
[2022-05-20] MEDS: cholecalciferol (vitamin D3) 1,000 unit (25mcg) tablet PO SCH (08:51)
[2022-05-20] MEDS: ascorbic acid 500mg tablet PO SCH ×2 (08:51→20:20)
[2022-05-20] MEDS: ferrous gluconate 324mg tablet PO SCH ×2 (08:51→20:20)
[2022-05-20] MEDS: tamsulosin 0.4mg capsule PO SCH (08:52)
[2022-05-20] MEDS: carVEDilol 12.5mg tablet PO SCH ×2 (08:52→20:21)
[2022-05-20] MEDS: docusate sod 100mg capsule PO SCH ×2 (08:52→20:22)
[2022-05-20] MEDS: budesonide 0.5mg/2ml UD nebule IH SCH ×2 (09:46→20:11)
[2022-05-20 11:00] VITALS: BP 110/69
[2022-05-20 18:00] VITALS: BP 108/61
--- NOTE | 2022-05-20 18:30 | NUR ---
Patient report given, questions answered & plan of care reviewed with RYAN Worthy.
[2022-05-20 20:18] VITALS: BP 106/63
[2022-05-20] MEDS: traMADol 50MG tablet PO PRN (20:20)
[2022-05-20 22:00] VITALS: BP 106/56
[2022-05-21] MEDS: ipratropium/albuterol 3ml nebule NEB SCH ×4 (03:00→20:11)
[2022-05-21] MEDS: magnesium hydroxide 30ml (MOM) UD suspension PO PRN (04:00)
[2022-05-21 06:00] VITALS: BP 154/56
--- NOTE | 2022-05-21 06:42 | NUR ---
Problems reprioritized. Patient report given, questions answered & plan of care reviewed with RYAN KENDRICK.
--- NOTE | 2022-05-21 06:48 | NUR ---
Patient in room [facility]. I have received report from Zaynab and had the opportunity to ask questions and assume patient care.
[2022-05-21] MEDS: budesonide 0.5mg/2ml UD nebule IH SCH ×2 (07:09→20:11)
[2022-05-21 08:00] VITALS: BP 105/67
[2022-05-21] MEDS: CefTRIAXone 2gm/D5W 50ml BAG 50 ML IV SCH (08:07)
[2022-05-21] MEDS: aspirin 81mg tab.chew PO SCH (08:12)
[2022-05-21] MEDS: docusate sod 100mg capsule PO SCH ×2 (08:13→20:00)
[2022-05-21] MEDS: carVEDilol 12.5mg tablet PO SCH ×2 (08:14→20:00)
[2022-05-21] MEDS: polyethylene glycol 3350 17gm powd pack PO SCH (08:14)
[2022-05-21] MEDS: tamsulosin 0.4mg capsule PO SCH (08:14)
[2022-05-21] MEDS: amLODIPine 5mg tablet PO SCH (08:19)
[2022-05-21] MEDS: ferrous gluconate 324mg tablet PO SCH ×2 (08:19→20:44)
[2022-05-21] MEDS: ascorbic acid 500mg tablet PO SCH ×2 (08:19→20:45)
[2022-05-21] MEDS: FLUoxetine 20mg capsule PO SCH (08:19)
[2022-05-21] MEDS: enoxaparin 40mg/0.4ml syringe SUBCUT SCH (08:20)
[2022-05-21] MEDS: cholecalciferol (vitamin D3) 1,000 unit (25mcg) tablet PO SCH (08:20)
[2022-05-21 11:00] VITALS: BP 103/59
[2022-05-21 11:07] VITALS: BP 103/59
[2022-05-21 18:00] VITALS: BP 106/58
--- NOTE | 2022-05-21 18:28 | NUR ---
Problems reprioritized. Patient report given, questions answered & plan of care reviewed with Zaynab.
[2022-05-21] MEDS: traMADol 50MG tablet PO PRN (20:45)
[2022-05-21 21:40] VITALS: BP 94/65
[2022-05-22] MEDS: ipratropium/albuterol 3ml nebule NEB SCH ×4 (03:00→20:26)
[2022-05-22] MEDS: traMADol 50MG tablet PO PRN (05:19)
[2022-05-22 06:00] VITALS: BP 115/73
--- NOTE | 2022-05-22 06:34 | NUR ---
Problems reprioritized. Patient report given, questions answered & plan of care reviewed with RYAN KENDRICK.
--- NOTE | 2022-05-22 06:49 | NUR ---
Patient in room [facility]. I have received report from Zaynab and had the opportunity to ask questions and assume patient care.
[2022-05-22 07:24] VITALS: BP 120/76
[2022-05-22] MEDS: budesonide 0.5mg/2ml UD nebule IH SCH ×2 (07:31→20:26)
[2022-05-22] MEDS: docusate sod 100mg capsule PO SCH ×2 (08:00→20:02)
[2022-05-22] MEDS: polyethylene glycol 3350 17gm powd pack PO SCH (08:00)
[2022-05-22] MEDS: aspirin 81mg tab.chew PO SCH (08:07)
[2022-05-22] MEDS: ferrous gluconate 324mg tablet PO SCH ×2 (08:08→20:02)
[2022-05-22] MEDS: carVEDilol 12.5mg tablet PO SCH ×2 (08:08→20:03)
[2022-05-22] MEDS: tamsulosin 0.4mg capsule PO SCH (08:08)
[2022-05-22] MEDS: amLODIPine 5mg tablet PO SCH (08:09)
[2022-05-22] MEDS: FLUoxetine 20mg capsule PO SCH (08:09)
[2022-05-22] MEDS: ascorbic acid 500mg tablet PO SCH ×2 (08:10→20:03)
[2022-05-22] MEDS: enoxaparin 40mg/0.4ml syringe SUBCUT SCH (08:10)
[2022-05-22] MEDS: cholecalciferol (vitamin D3) 1,000 unit (25mcg) tablet PO SCH (08:10)
[2022-05-22 11:00] VITALS: BP 96/62
--- NOTE | 2022-05-22 13:02 | NUR ---
F/u 05/22: Pt PO continues to be much improved ~75-100% w/ frequent 100% of meals meeting estimated needs. LBM 05/21 per EMR. No further nutrition interventions at this time. Will continue to follow. Recommendations: 1. Continue heart healthy/EC7 diet 2. Cancel Ensure Plus ONS once verified by physician since no longer needed 3. Yogurt WB, smoothie BIDLD 4. Routine bowel care 5. Weekly scaled weights Addendum: 05/22/22 at [address] Amended: Links added.
[2022-05-22 18:00] VITALS: BP 105/59
--- NOTE | 2022-05-22 18:39 | NUR ---
Problems reprioritized. Patient report given, questions answered & plan of care reviewed with
--- NOTE | 2022-05-22 19:05 | NUR ---
Patient in room [facility]. I have received report from RYAN Renteria and had the opportunity to ask questions and assume patient care.
[2022-05-22 22:00] VITALS: BP 115/70
[2022-05-23] MEDS: ipratropium/albuterol 3ml nebule NEB SCH ×4 (02:36→20:47)
--- NOTE | 2022-05-23 06:32 | NUR ---
Problems reprioritized. Patient report given, questions answered & plan of care reviewed with RYAN Nunes and RYAN Rubin.
--- NOTE | 2022-05-23 06:49 | NUR ---
Patient in room [facility]. I have received report from SHONNA DAVIS and had the opportunity to ask questions and assume patient care.
[2022-05-23 07:21] VITALS: BP 100/51
[2022-05-23] MEDS: budesonide 0.5mg/2ml UD nebule IH SCH ×2 (08:32→20:47)
[2022-05-23] MEDS: FLUoxetine 20mg capsule PO SCH (08:39)
[2022-05-23] MEDS: polyethylene glycol 3350 17gm powd pack PO SCH (08:39)
[2022-05-23] MEDS: tamsulosin 0.4mg capsule PO SCH (08:39)
[2022-05-23] MEDS: aspirin 81mg tab.chew PO SCH (08:39)
[2022-05-23] MEDS: ferrous gluconate 324mg tablet PO SCH ×2 (08:39→20:59)
[2022-05-23] MEDS: docusate sod 100mg capsule PO SCH ×2 (08:39→20:59)
[2022-05-23] MEDS: ascorbic acid 500mg tablet PO SCH ×2 (08:40→20:59)
[2022-05-23] MEDS: cholecalciferol (vitamin D3) 1,000 unit (25mcg) tablet PO SCH (08:40)
[2022-05-23] MEDS: enoxaparin 40mg/0.4ml syringe SUBCUT SCH (08:41)
[2022-05-23 10:00] VITALS: BP 112/68
[2022-05-23 10:36] VITALS: BP 116/68
[2022-05-23] MEDS: carVEDilol 12.5mg tablet PO SCH ×2 (10:41→21:00)
[2022-05-23] MEDS: amLODIPine 5mg tablet PO SCH (10:42)
--- NOTE | 2022-05-23 12:15 | NUR ---
Afternoon report regarding patient given to Luz MACIAS, student.
--- NOTE | 2022-05-23 18:06 | NUR ---
Problems reprioritized. Patient report given, questions answered & plan of care reviewed with frandy carballo.
--- NOTE | 2022-05-23 18:30 | NUR ---
Patient in room [facility]. I have received report from RYAN Nunes and had the opportunity to ask questions and assume patient care.
[2022-05-24] MEDS: ipratropium/albuterol 3ml nebule NEB SCH ×4 (03:00→20:26)
[2022-05-24 05:30] VITALS: BP 105/63
--- NOTE | 2022-05-24 06:50 | NUR ---
Patient in room [facility]. I have received report from RYAN Frances and had the opportunity to ask questions and assume patient care.
--- NOTE | 2022-05-24 07:06 | NUR ---
Problems reprioritized. Patient report given, questions answered & plan of care reviewed with RYAN Cagle.
[2022-05-24] MEDS: amLODIPine 5mg tablet PO SCH (08:00)
[2022-05-24] MEDS: carVEDilol 12.5mg tablet PO SCH ×2 (08:00→19:27)
[2022-05-24] MEDS: budesonide 0.5mg/2ml UD nebule IH SCH ×2 (08:35→20:26)
[2022-05-24 08:44] LABS: BASOPHILS # (AUTO) 0.1 X10'3 (0-0.2); BASOPHILS % (AUTO) 0.7 % (0-1); EOSINOPHILS # (AUTO) 0.1 X10'3 (0-0.9); EOSINOPHILS % (AUTO) 1.6 % (0-6); HEMATOCRIT 34.4 % (42.0-52.0); HEMOGLOBIN 11.5 g/dl (14.0-17.9); LYMPHOCYTES # (AUTO) 2.6 X10'3 (1.1-4.8); MEAN CORPUSCULAR HEMOGLOBIN 30.7 PG (27.0-31.0); MEAN CORPUSCULAR HGB CONC 33.4 g/dL (33.0-36.5); MEAN CORPUSCULAR VOLUME 91.7 FL (78-98); MEAN PLATELET VOLUME 8.4 FL (7.4-10.4); MONOCYTES # (AUTO) 0.7 X10'3 (0-0.9); MONOCYTES % (AUTO) 7.8 % (2-12); NEUTROPHILS # (AUTO) 5.6 X10'3 (1.8-7.7); NEUTROPHILS % (AUTO) 60.9 % (42-75); PLATELET COUNT 367 X10'3 (140-440); RED BLOOD COUNT 3.75 X10'6 (4.70-6.10); RED CELL DISTRIBUTION WIDTH 14.3 % (11.5-14.5); WHITE BLOOD COUNT 9.1 X10'3 (4.5-11.0)
[2022-05-24 09:01] LABS: ALANINE AMINOTRANSFERASE 29 U/L (12-78); ALBUMIN 2.8 G/DL (3.4-5.0); ALBUMIN/GLOBULIN RATIO 0.7 (1.1-1.5); ALKALINE PHOSPHATASE 104 IU/L (46-116); ANION GAP 2 (8-16); ASPARTATE AMINO TRANSFERASE 22 U/L (10-37); BILIRUBIN,TOTAL 0.3 MG/DL (0.1-1.0); BLOOD UREA NITROGEN 42 MG/DL (7-18); BUN/CREATININE RATIO 31.3 (5.4-32.0); CALCIUM 9.6 MG/DL (8.5-10.1); CHLORIDE 102 MMOL/L (99-107); CREATININE 1.34 MG/DL (0.60-1.10); GLUCOSE 104 MG/DL (70-104); POTASSIUM 4.9 MMOL/L (3.5-5.1); SODIUM 140 MMOL/L (135-145); TOTAL CARBON DIOXIDE 36.4 MMOL/L (24-32); TOTAL PROTEIN 6.8 G/DL (6.4-8.2); eGFR 52 ML/MIN
[2022-05-24 10:00] VITALS: BP 97/63
[2022-05-24] MEDS: polyethylene glycol 3350 17gm powd pack PO SCH (10:31)
[2022-05-24] MEDS: normal saline 1000ml 1,000 ML IV SCH ×2 (10:31→19:50)
[2022-05-24] MEDS: aspirin 81mg tab.chew PO SCH (10:37)
[2022-05-24] MEDS: docusate sod 100mg capsule PO SCH ×2 (10:37→19:27)
[2022-05-24] MEDS: ascorbic acid 500mg tablet PO SCH ×2 (10:37→19:27)
[2022-05-24] MEDS: ferrous gluconate 324mg tablet PO SCH ×2 (10:37→19:27)
[2022-05-24] MEDS: cholecalciferol (vitamin D3) 1,000 unit (25mcg) tablet PO SCH (10:38)
[2022-05-24] MEDS: FLUoxetine 20mg capsule PO SCH (10:38)
[2022-05-24] MEDS: enoxaparin 40mg/0.4ml syringe SUBCUT SCH (10:38)
[2022-05-24] MEDS: tamsulosin 0.4mg capsule PO SCH (10:38)
--- NOTE | 2022-05-24 18:25 | NUR ---
Problems reprioritized. Patient report given, questions answered & plan of care reviewed with Faith Cuevas RN.
[2022-05-24 18:30] VITALS: BP 123/68
--- NOTE | 2022-05-24 18:35 | NUR ---
Patient in room [facility]. I have received report from FRANCESCA DAVIS and had the opportunity to ask questions and assume patient care.
[2022-05-24 22:00] VITALS: BP 114/58
[2022-05-25] MEDS: ipratropium/albuterol 3ml nebule NEB SCH ×4 (03:00→20:33)
[2022-05-25 05:30] VITALS: BP 124/63
[2022-05-25] MEDS: normal saline 1000ml 1,000 ML IV SCH (05:30)
[2022-05-25 06:21] LABS: ALANINE AMINOTRANSFERASE 34 U/L (12-78); ALBUMIN 2.7 G/DL (3.4-5.0); ALBUMIN/GLOBULIN RATIO 0.7 (1.1-1.5); ALKALINE PHOSPHATASE 104 IU/L (46-116); ANION GAP 2 (8-16); ASPARTATE AMINO TRANSFERASE 20 U/L (10-37); BILIRUBIN,TOTAL 0.2 MG/DL (0.1-1.0); BLOOD UREA NITROGEN 36 MG/DL (7-18); BUN/CREATININE RATIO 29.5 (5.4-32.0); CALCIUM 9.3 MG/DL (8.5-10.1); CHLORIDE 103 MMOL/L (99-107); CREATININE 1.22 MG/DL (0.60-1.10); GLUCOSE 98 MG/DL (70-104); POTASSIUM 4.9 MMOL/L (3.5-5.1); SODIUM 141 MMOL/L (135-145); TOTAL CARBON DIOXIDE 35.6 MMOL/L (24-32); TOTAL PROTEIN 6.6 G/DL (6.4-8.2); eGFR 57 ML/MIN
--- NOTE | 2022-05-25 06:39 | NUR ---
Problems reprioritized. Patient report given, questions answered & plan of care reviewed with FRANCESCA RN.
--- NOTE | 2022-05-25 06:45 | NUR ---
Patient in room [facility]. I have received report from Faith Cuevas RN and had the opportunity to ask questions and assume patient care.
[2022-05-25] MEDS: budesonide 0.5mg/2ml UD nebule IH SCH ×2 (08:08→20:33)
[2022-05-25] MEDS: enoxaparin 40mg/0.4ml syringe SUBCUT SCH (09:58)
[2022-05-25] MEDS: polyethylene glycol 3350 17gm powd pack PO SCH (09:59)
[2022-05-25 10:00] VITALS: BP 116/66
[2022-05-25] MEDS: cholecalciferol (vitamin D3) 1,000 unit (25mcg) tablet PO SCH (10:00)
[2022-05-25] MEDS: FLUoxetine 20mg capsule PO SCH (10:00)
[2022-05-25] MEDS: carVEDilol 12.5mg tablet PO SCH ×2 (10:01→19:36)
[2022-05-25] MEDS: tamsulosin 0.4mg capsule PO SCH (10:01)
[2022-05-25] MEDS: amLODIPine 5mg tablet PO SCH (10:01)
[2022-05-25] MEDS: ferrous gluconate 324mg tablet PO SCH ×2 (10:01→19:36)
[2022-05-25] MEDS: docusate sod 100mg capsule PO SCH ×2 (10:01→19:37)
[2022-05-25] MEDS: aspirin 81mg tab.chew PO SCH (10:01)
[2022-05-25] MEDS: ascorbic acid 500mg tablet PO SCH ×2 (10:01→19:37)
[2022-05-25 18:00] VITALS: BP 114/74
--- NOTE | 2022-05-25 18:30 | NUR ---
Problems reprioritized. Patient report given, questions answered & plan of care reviewed with RYAN Coronel.
--- NOTE | 2022-05-25 18:32 | NUR ---
Patient in room [facility]. I have received report from FRANCESCA DAVIS and had the opportunity to ask questions and assume patient care.
[2022-05-25] MEDS: cyclobenzaprine 10mg tablet PO PRN (19:36)
[2022-05-25] MEDS: traMADol 50MG tablet PO PRN (19:36)
[2022-05-25 22:00] VITALS: BP 103/50
[2022-05-26 00:15] VITALS: BP 120/61
--- NOTE | 2022-05-26 00:15 | NUR ---
PATIENT FELL WHILE TRYING TO GET OUT OF BED. HE SLIPPED ON URINE. NO INJURIES NOTED AND PATIENT DENIES ANY PAIN. VITAL SIGNS STABLE WITH BP 120/61, P 67, R 20, PAIN 0 AND T 98.3. MD ([facility]) AND MOLDED FRAMES ASSEMBLER NOTIFIED.
[2022-05-26] MEDS: ipratropium/albuterol 3ml nebule NEB SCH ×4 (02:29→20:14)
[2022-05-26 06:00] VITALS: BP 110/53
--- NOTE | 2022-05-26 06:31 | NUR ---
Problems reprioritized. Patient report given, questions answered & plan of care reviewed with CRISSY Holland LVN.
[2022-05-26 07:08] LABS: ALANINE AMINOTRANSFERASE 31 U/L (12-78); ALBUMIN 2.8 G/DL (3.4-5.0); ALBUMIN/GLOBULIN RATIO 0.7 (1.1-1.5); ALKALINE PHOSPHATASE 101 IU/L (46-116); ANION GAP 2 (8-16); ASPARTATE AMINO TRANSFERASE 22 U/L (10-37); BILIRUBIN,TOTAL 0.3 MG/DL (0.1-1.0); BLOOD UREA NITROGEN 32 MG/DL (7-18); BUN/CREATININE RATIO 26.9 (5.4-32.0); CALCIUM 9.6 MG/DL (8.5-10.1); CHLORIDE 104 MMOL/L (99-107); CREATININE 1.19 MG/DL (0.60-1.10); GLUCOSE 100 MG/DL (70-104); POTASSIUM 4.7 MMOL/L (3.5-5.1); SODIUM 142 MMOL/L (135-145); TOTAL CARBON DIOXIDE 35.7 MMOL/L (24-32); TOTAL PROTEIN 6.7 G/DL (6.4-8.2); eGFR 59 ML/MIN
[2022-05-26] MEDS: budesonide 0.5mg/2ml UD nebule IH SCH ×2 (08:06→20:14)
[2022-05-26] MEDS: enoxaparin 40mg/0.4ml syringe SUBCUT SCH (08:46)
[2022-05-26] MEDS: tamsulosin 0.4mg capsule PO SCH (08:47)
[2022-05-26] MEDS: ferrous gluconate 324mg tablet PO SCH ×2 (08:47→21:18)
[2022-05-26] MEDS: aspirin 81mg tab.chew PO SCH (08:47)
[2022-05-26] MEDS: docusate sod 100mg capsule PO SCH ×2 (08:47→21:18)
[2022-05-26] MEDS: amLODIPine 5mg tablet PO SCH (08:47)
[2022-05-26] MEDS: cholecalciferol (vitamin D3) 1,000 unit (25mcg) tablet PO SCH (08:47)
[2022-05-26] MEDS: ascorbic acid 500mg tablet PO SCH ×2 (08:48→21:30)
[2022-05-26] MEDS: polyethylene glycol 3350 17gm powd pack PO SCH (08:48)
[2022-05-26] MEDS: FLUoxetine 20mg capsule PO SCH (08:48)
[2022-05-26] MEDS: carVEDilol 12.5mg tablet PO SCH ×2 (08:48→21:23)
[2022-05-26] MEDS: traMADol 50MG tablet PO PRN (08:48)
[2022-05-26 18:00] VITALS: BP 137/71
--- NOTE | 2022-05-26 18:18 | NUR ---
Patient in room [facility]. I have received report from Eladia MO and had the opportunity to ask questions and assume patient care.
--- NOTE | 2022-05-26 18:25 | NUR ---
Problems reprioritized. Patient report given, questions answered & plan of care reviewed with MELI DAVIS.
[2022-05-26 21:23] VITALS: BP 122/52
[2022-05-26 22:00] VITALS: BP 104/56
[2022-05-27] MEDS: ipratropium/albuterol 3ml nebule NEB SCH ×4 (02:21→20:01)
[2022-05-27 04:28] LABS: ALANINE AMINOTRANSFERASE 27 U/L (12-78); ALBUMIN 2.7 G/DL (3.4-5.0); ALBUMIN/GLOBULIN RATIO 0.7 (1.1-1.5); ALKALINE PHOSPHATASE 92 IU/L (46-116); ANION GAP 3 (8-16); ASPARTATE AMINO TRANSFERASE 21 U/L (10-37); BILIRUBIN,TOTAL 0.4 MG/DL (0.1-1.0); BLOOD UREA NITROGEN 30 MG/DL (7-18); BUN/CREATININE RATIO 25.2 (5.4-32.0); CALCIUM 9.3 MG/DL (8.5-10.1); CHLORIDE 101 MMOL/L (99-107); CREATININE 1.19 MG/DL (0.60-1.10); GLUCOSE 110 MG/DL (70-104); POTASSIUM 4.4 MMOL/L (3.5-5.1); SODIUM 136 MMOL/L (135-145); TOTAL CARBON DIOXIDE 32.5 MMOL/L (24-32); TOTAL PROTEIN 6.6 G/DL (6.4-8.2); eGFR 59 ML/MIN
[2022-05-27 05:00] VITALS: BP 100/45
--- NOTE | 2022-05-27 06:15 | NUR ---
Problems reprioritized. Patient report given, questions answered & plan of care reviewed with Eladia MO.
[2022-05-27] MEDS: carVEDilol 12.5mg tablet PO SCH ×2 (08:00→20:30)
[2022-05-27] MEDS: FLUoxetine 20mg capsule PO SCH (08:27)
[2022-05-27] MEDS: aspirin 81mg tab.chew PO SCH (08:27)
[2022-05-27] MEDS: cholecalciferol (vitamin D3) 1,000 unit (25mcg) tablet PO SCH (08:27)
[2022-05-27] MEDS: traMADol 50MG tablet PO PRN ×2 (08:27→20:35)
[2022-05-27] MEDS: ferrous gluconate 324mg tablet PO SCH ×2 (08:27→20:30)
[2022-05-27] MEDS: docusate sod 100mg capsule PO SCH ×2 (08:27→20:30)
[2022-05-27] MEDS: ascorbic acid 500mg tablet PO SCH ×2 (08:27→20:32)
[2022-05-27] MEDS: tamsulosin 0.4mg capsule PO SCH (08:27)
[2022-05-27] MEDS: amLODIPine 5mg tablet PO SCH (08:27)
[2022-05-27] MEDS: polyethylene glycol 3350 17gm powd pack PO SCH (08:28)
[2022-05-27] MEDS: enoxaparin 40mg/0.4ml syringe SUBCUT SCH (08:28)
[2022-05-27] MEDS: budesonide 0.5mg/2ml UD nebule IH SCH ×2 (09:08→20:01)
[2022-05-27 11:00] VITALS: BP 114/70
[2022-05-27 18:00] VITALS: BP 113/71
--- NOTE | 2022-05-27 18:12 | NUR ---
Problems reprioritized. Patient report given, questions answered & plan of care reviewed with Suha DAVIS.
--- NOTE | 2022-05-27 18:38 | NUR ---
Report received from Eladia DAVIS.
--- NOTE | 2022-05-27 19:09 | NUR ---
Agreed with LIQUOR GALLERY OPERATOR assessment, added a few of my own findings. Addendum: 05/27/22 at 1909 by Zuleyka Patel RN Amended: Links added.
[2022-05-27] MEDS: cyclobenzaprine 10mg tablet PO PRN (20:35)
[2022-05-27 22:00] VITALS: BP 140/79
[2022-05-28] MEDS: ipratropium/albuterol 3ml nebule NEB SCH ×4 (02:22→19:55)
[2022-05-28 06:00] VITALS: BP 112/76
--- NOTE | 2022-05-28 06:23 | NUR ---
Report to Zuleyka DAVIS.
[2022-05-28 06:32] LABS: ALANINE AMINOTRANSFERASE 29 U/L (12-78); ALBUMIN 2.6 G/DL (3.4-5.0); ALBUMIN/GLOBULIN RATIO 0.7 (1.1-1.5); ALKALINE PHOSPHATASE 89 IU/L (46-116); ANION GAP 1 (8-16); ASPARTATE AMINO TRANSFERASE 19 U/L (10-37); BILIRUBIN,TOTAL 0.3 MG/DL (0.1-1.0); BLOOD UREA NITROGEN 33 MG/DL (7-18); BUN/CREATININE RATIO 23.2 (5.4-32.0); CALCIUM 9.5 MG/DL (8.5-10.1); CHLORIDE 104 MMOL/L (99-107); CREATININE 1.42 MG/DL (0.60-1.10); GLUCOSE 106 MG/DL (70-104); POTASSIUM 4.6 MMOL/L (3.5-5.1); SODIUM 139 MMOL/L (135-145); TOTAL CARBON DIOXIDE 34.5 MMOL/L (24-32); TOTAL PROTEIN 6.6 G/DL (6.4-8.2); eGFR 48 ML/MIN
[2022-05-28] MEDS: polyethylene glycol 3350 17gm powd pack PO SCH (08:00)
[2022-05-28] MEDS: budesonide 0.5mg/2ml UD nebule IH SCH ×2 (09:39→19:55)
[2022-05-28] MEDS: FLUoxetine 20mg capsule PO SCH (09:54)
[2022-05-28] MEDS: enoxaparin 40mg/0.4ml syringe SUBCUT SCH (09:54)
[2022-05-28] MEDS: tamsulosin 0.4mg capsule PO SCH (09:54)
[2022-05-28] MEDS: ferrous gluconate 324mg tablet PO SCH ×2 (09:55→21:43)
[2022-05-28] MEDS: aspirin 81mg tab.chew PO SCH (09:55)
[2022-05-28] MEDS: traMADol 50MG tablet PO PRN ×2 (09:55→21:44)
[2022-05-28] MEDS: cholecalciferol (vitamin D3) 1,000 unit (25mcg) tablet PO SCH (09:55)
[2022-05-28] MEDS: ascorbic acid 500mg tablet PO SCH ×2 (09:56→21:43)
[2022-05-28] MEDS: docusate sod 100mg capsule PO SCH ×2 (09:56→21:44)
[2022-05-28] MEDS: carVEDilol 12.5mg tablet PO SCH ×2 (10:00→21:45)
[2022-05-28] MEDS: amLODIPine 5mg tablet PO SCH (10:01)
[2022-05-28 10:02] VITALS: BP 114/98
[2022-05-28 18:00] VITALS: BP 107/40
--- NOTE | 2022-05-28 18:46 | NUR ---
Problems reprioritized. Patient report given, questions answered & plan of care reviewed with ALONSO GUPTA RN.
--- NOTE | 2022-05-28 18:50 | NUR ---
Patient in room [facility]. I have received report from PREM DAVIS and had the opportunity to ask questions and assume patient care.
[2022-05-28] MEDS: cyclobenzaprine 10mg tablet PO PRN (21:44)
[2022-05-29] MEDS: ipratropium/albuterol 3ml nebule NEB SCH ×4 (02:27→20:08)
[2022-05-29 06:00] VITALS: BP 110/66
--- NOTE | 2022-05-29 06:20 | NUR ---
Patient in room [facility]. I have received report from Faith Cuevas RN and had the opportunity to ask questions and assume patient care.
--- NOTE | 2022-05-29 06:45 | NUR ---
Problems reprioritized. Patient report given, questions answered & plan of care reviewed with JESSICA MO.
[2022-05-29] MEDS: docusate sod 100mg capsule PO SCH ×2 (08:00→20:43)
[2022-05-29] MEDS: polyethylene glycol 3350 17gm powd pack PO SCH (08:00)
[2022-05-29] MEDS: aspirin 81mg tab.chew PO SCH (08:52)
[2022-05-29] MEDS: carVEDilol 12.5mg tablet PO SCH ×2 (08:53→20:43)
[2022-05-29] MEDS: ferrous gluconate 324mg tablet PO SCH ×2 (08:53→20:42)
[2022-05-29] MEDS: amLODIPine 5mg tablet PO SCH (08:54)
[2022-05-29] MEDS: FLUoxetine 20mg capsule PO SCH (08:54)
[2022-05-29] MEDS: tamsulosin 0.4mg capsule PO SCH (08:54)
[2022-05-29] MEDS: cholecalciferol (vitamin D3) 1,000 unit (25mcg) tablet PO SCH (08:55)
[2022-05-29] MEDS: ascorbic acid 500mg tablet PO SCH ×2 (08:55→20:41)
[2022-05-29] MEDS: enoxaparin 40mg/0.4ml syringe SUBCUT SCH (08:56)
[2022-05-29] MEDS: budesonide 0.5mg/2ml UD nebule IH SCH ×2 (09:12→20:08)
--- NOTE | 2022-05-29 12:10 | NUR ---
F/u 05/22: Pt PO continues to be adequate mostly ~100% meals meeting estimated needs. LBM 05/28 per EMR. No nutrition interventions at this time. Will continue to follow. Recommendations: 1. Continue heart healthy/EC7 diet 2. Cancel Ensure Plus ONS once verified by physician since no longer needed 3. Yogurt WB, smoothie BIDLD 4. Routine bowel care 5. Weekly scaled weights Addendum: 05/29/22 at [address] Amended: Links added.
--- NOTE | 2022-05-29 12:30 | NUR ---
patient was placed in a shower chair--shower given, bed linens changed, notified primary nurse of open wound on penis present when condom catheter was removed for bathing. Also notified primary nurse of thick, greenish yellow, substance coming out of catheter bag when emptied.
--- NOTE | 2022-05-29 13:19 | NUR ---
Patient has a open wound under his penis. Wound consult was placed and wound care called. I spoke with Karolyn and advised her of this.
--- NOTE | 2022-05-29 13:34 | NUR ---
PAGER ID: [phone] MESSAGE: [phone] Willie C- Patient is complaining of painful urination and when the condom cath bag was emptied, thick urine mucus came out. May I have an order for a UA and a STD panel? PLs advise? JILL Marshall [phone]
[2022-05-29 18:00] VITALS: BP 117/69
--- NOTE | 2022-05-29 18:00 | NUR ---
I have reviewed and agree with interventions, assessments performed, and documentation by Joanna Andrea LVN.
--- NOTE | 2022-05-29 18:45 | NUR ---
Patient had a shower today and a shave and hair cut, clean linen
--- NOTE | 2022-05-29 18:45 | NUR ---
Problems reprioritized. Patient report given, questions answered & plan of care reviewed with Faith Cuevas RN.
--- NOTE | 2022-05-29 18:48 | NUR ---
Patient in room [facility]. I have received report from JESSICA MO and had the opportunity to ask questions and assume patient care.
[2022-05-29] MEDS: LACTOSE-REDUCED FOOD 237ML LIQUID PO SCH (19:00)
[2022-05-29] MEDS: traMADol 50MG tablet PO PRN (20:42)
[2022-05-29] MEDS: cyclobenzaprine 10mg tablet PO PRN (20:43)
[2022-05-29 22:00] VITALS: BP 90/46
[2022-05-29 23:00] LABS: CLARITY,URINE SLIGHTLY CLOUDY (Clear); COLOR,URINE YELLOW (Yellow); GLUCOSE, URINE NEGATIVE (Neg); KETONES,URINE NEGATIVE (Neg); LEUKOCYTE ESTERASE ,URINE LARGE (Neg); NITRITES, URINE POSITIVE (Neg); OCCULT BLOOD,URINE TRACE-INTACT (Neg); PH,URINE 7.5 (4.8-8.0); PROTEIN,URINE NEGATIVE (Neg); UROBILINOGEN,URINE 0.2 E.U/dL (0.2-1.0)
[2022-05-29 23:07] LABS: UA COLLECTION TYPE CLN CATCH MIDSTREAM
[2022-05-29 23:09] LABS: BACTERIA,URINE 3+ /HPF (Neg); HYALINE CASTS 0-3 /LPF (NEGATIVE); SQUAMOUS EPITHELIAL CELL,UR FEW /LPF (FEW)
[2022-05-29 23:10] LABS: RBC,URINE 0-2 /HPF (0-2); WBC,URINE 30-50 /HPF (0-4)
[2022-05-30] MEDS: ipratropium/albuterol 3ml nebule NEB SCH ×4 (02:54→20:07)
[2022-05-30 06:00] VITALS: BP 103/61
--- NOTE | 2022-05-30 06:36 | NUR ---
Problems reprioritized. Patient report given, questions answered & plan of care reviewed with MAHESH DAVIS.
--- NOTE | 2022-05-30 07:32 | NUR ---
Patient in room [facility]. I have received report from Faith Cuevas RN and had the opportunity to ask questions and assume patient care.
[2022-05-30] MEDS: LACTOSE-REDUCED FOOD 237ML LIQUID PO SCH ×3 (08:00→18:00)
[2022-05-30] MEDS: budesonide 0.5mg/2ml UD nebule IH SCH ×2 (08:51→20:07)
[2022-05-30 08:54] VITALS: BP 107/48
[2022-05-30] MEDS: amLODIPine 5mg tablet PO SCH (09:05)
[2022-05-30] MEDS: aspirin 81mg tab.chew PO SCH (09:06)
[2022-05-30] MEDS: carVEDilol 12.5mg tablet PO SCH ×2 (09:06→20:16)
[2022-05-30] MEDS: docusate sod 100mg capsule PO SCH ×2 (09:06→20:18)
[2022-05-30] MEDS: FLUoxetine 20mg capsule PO SCH (09:07)
[2022-05-30] MEDS: ascorbic acid 500mg tablet PO SCH ×2 (09:07→20:17)
[2022-05-30] MEDS: ferrous gluconate 324mg tablet PO SCH ×2 (09:07→20:17)
[2022-05-30] MEDS: cholecalciferol (vitamin D3) 1,000 unit (25mcg) tablet PO SCH (09:07)
[2022-05-30] MEDS: polyethylene glycol 3350 17gm powd pack PO SCH (09:08)
[2022-05-30] MEDS: tamsulosin 0.4mg capsule PO SCH (09:09)
[2022-05-30 10:00] VITALS: BP 104/60
[2022-05-30 12:37] LABS: BASOPHILS % (AUTO) 0.2 % (0-1); EOSINOPHILS # (AUTO) 0.3 X10'3 (0-0.9); HEMATOCRIT 32.8 % (42.0-52.0); HEMOGLOBIN 10.6 g/dl (14.0-17.9); LYMPHOCYTES # (AUTO) 2.1 X10'3 (1.1-4.8); LYMPHOCYTES % (AUTO) 24.7 % (21-51); MEAN CORPUSCULAR HEMOGLOBIN 29.7 PG (27.0-31.0); MEAN CORPUSCULAR HGB CONC 32.4 g/dL (33.0-36.5); MEAN CORPUSCULAR VOLUME 91.7 FL (78-98); MEAN PLATELET VOLUME 8.2 FL (7.4-10.4); MONOCYTES # (AUTO) 0.7 X10'3 (0-0.9); MONOCYTES % (AUTO) 8.9 % (2-12); NEUTROPHILS # (AUTO) 5.3 X10'3 (1.8-7.7); NEUTROPHILS % (AUTO) 63.2 % (42-75); PLATELET COUNT 342 X10'3 (140-440); RED BLOOD COUNT 3.58 X10'6 (4.70-6.10); RED CELL DISTRIBUTION WIDTH 14.9 % (11.5-14.5); WHITE BLOOD COUNT 8.4 X10'3 (4.5-11.0)
[2022-05-30 12:54] LABS: APTT 29 SECONDS (22-32)
[2022-05-30 13:06] LABS: ALANINE AMINOTRANSFERASE 24 U/L (12-78); ALBUMIN 2.6 G/DL (3.4-5.0); ALBUMIN/GLOBULIN RATIO 0.6 (1.1-1.5); ALKALINE PHOSPHATASE 96 IU/L (46-116); ANION GAP 0 (8-16); ASPARTATE AMINO TRANSFERASE 15 U/L (10-37); BILIRUBIN,TOTAL 0.2 MG/DL (0.1-1.0); BLOOD UREA NITROGEN 34 MG/DL (7-18); BUN/CREATININE RATIO 31.8 (5.4-32.0); CALCIUM 9.6 MG/DL (8.5-10.1); CHLORIDE 102 MMOL/L (99-107); CREATININE 1.07 MG/DL (0.60-1.10); GLUCOSE 102 MG/DL (70-104); POTASSIUM 4.4 MMOL/L (3.5-5.1); SODIUM 138 MMOL/L (135-145); TOTAL CARBON DIOXIDE 35.9 MMOL/L (24-32); TOTAL PROTEIN 6.7 G/DL (6.4-8.2); eGFR 67 ML/MIN
[2022-05-30] MEDS: enoxaparin 40mg/0.4ml syringe SUBCUT SCH (13:24)
--- NOTE | 2022-05-30 15:44 | NUR ---
PRESSURE ULCER EDUCATION: DEFINITION: A pressure ulcer is an area of skin that breaks down when you stay in one position too long. The constant pressure against the skin reduces the blood flow to that area and the affected tissue dies. CAUSES: "Being bedridden or in a wheelchair "Fragile skin "Having a chronic condition, such as diabetes or vascular disease "Inability to move certain parts of your body without assistance "Older age "Incontinence of urine or stool SYMPTOMS: "A reddened area that DOES NOT turn white when pressed on - this can be the beginning of a pressure ulcer "A blister, deep sore or a crater - these can be advanced pressure ulcers FIRST AID: "Relieve the pressure on this area "Keep the area clean and dry "Call your primary doctor if you see any of the above symptoms "DO NOT massage the area "DO NOT use a donut shaped or ring shaped pillow- these actually interfere with the blood flow and cause complications PREVENTION: "Check for pressure ulcers everyday "Change position at least every two hours to relieve pressure "Use items that help relieve pressure- pillows, sheepskin, foam padding, and powders. "Keep skin clean and dry "Eat healthy well balanced meals "Exercise daily IF YOU SEE ANY OF THESE SYMPTOMS WHILE IN THE HOSPITAL - TELL YOUR NURSE IMMEDIATELY. IF YOU SEE ANY OF THESE SYMPTOMS WHILE AT HOME OR HAVE ANY QUESTIONS OR CONCERNS ABOUT PRESSURE ULCERS - CALL YOUR PRIMARY DOCTOR IMMEDIATELY. Addendum: 05/30/22 at 1545 by Arleth Krishnamurthy RN Amended: Links added.
[2022-05-30 18:00] VITALS: BP 119/58
--- NOTE | 2022-05-30 18:33 | NUR ---
Problems reprioritized. Patient report given, questions answered & plan of care reviewed with Faith Cuevas RN.
--- NOTE | 2022-05-30 18:40 | NUR ---
Patient in room [facility]. I have received report from MAHESH DAVIS and had the opportunity to ask questions and assume patient care.
[2022-05-30] MEDS: cyclobenzaprine 10mg tablet PO PRN (20:16)
[2022-05-30] MEDS: traMADol 50MG tablet PO PRN (20:17)
[2022-05-30 22:00] VITALS: BP 116/63
[2022-05-31] MEDS: ipratropium/albuterol 3ml nebule NEB SCH ×4 (02:47→20:21)
[2022-05-31 05:30] VITALS: BP 104/53
--- NOTE | 2022-05-31 06:30 | NUR ---
Patient in room [facility]. I have received report from Faith Cuevas RN and had the opportunity to ask questions and assume patient care.
--- NOTE | 2022-05-31 06:49 | NUR ---
Problems reprioritized. Patient report given, questions answered & plan of care reviewed with FRANCESCA RN.
[2022-05-31] MEDS: amLODIPine 5mg tablet PO SCH (08:00)
[2022-05-31] MEDS: carVEDilol 12.5mg tablet PO SCH ×2 (08:00→19:33)
[2022-05-31] MEDS: LACTOSE-REDUCED FOOD 237ML LIQUID PO SCH ×3 (08:07→18:39)
[2022-05-31] MEDS: budesonide 0.5mg/2ml UD nebule IH SCH ×2 (09:00→20:21)
[2022-05-31] MEDS: FLUoxetine 20mg capsule PO SCH (09:01)
[2022-05-31] MEDS: polyethylene glycol 3350 17gm powd pack PO SCH (09:01)
[2022-05-31] MEDS: docusate sod 100mg capsule PO SCH ×2 (09:01→19:32)
[2022-05-31] MEDS: aspirin 81mg tab.chew PO SCH (09:01)
[2022-05-31] MEDS: cholecalciferol (vitamin D3) 1,000 unit (25mcg) tablet PO SCH (09:01)
[2022-05-31] MEDS: tamsulosin 0.4mg capsule PO SCH (09:01)
[2022-05-31] MEDS: enoxaparin 40mg/0.4ml syringe SUBCUT SCH (09:02)
[2022-05-31] MEDS: ferrous gluconate 324mg tablet PO SCH ×2 (09:02→19:32)
[2022-05-31] MEDS: ascorbic acid 500mg tablet PO SCH ×2 (09:02→19:32)
[2022-05-31 10:00] VITALS: BP 114/68
[2022-05-31 18:00] VITALS: BP 136/68
--- NOTE | 2022-05-31 18:35 | NUR ---
Problems reprioritized. Patient report given, questions answered & plan of care reviewed with Faith Cuevas RN.
--- NOTE | 2022-05-31 18:40 | NUR ---
Patient in room [facility]. I have received report from FRANCESCA DAVIS and had the opportunity to ask questions and assume patient care.
[2022-05-31] MEDS: cyclobenzaprine 10mg tablet PO PRN (19:32)
[2022-05-31] MEDS: traMADol 50MG tablet PO PRN (19:34)
[2022-05-31 22:00] VITALS: BP 126/68
[2022-06-01] MEDS: ipratropium/albuterol 3ml nebule NEB SCH ×4 (03:51→20:12)
[2022-06-01 05:30] VITALS: BP 114/73
--- NOTE | 2022-06-01 06:10 | NUR ---
Patient in room [facility]. I have received report from Faith Cuevas RN and had the opportunity to ask questions and assume patient care.
--- NOTE | 2022-06-01 06:31 | NUR ---
Problems reprioritized. Patient report given, questions answered & plan of care reviewed with FRANCESCA RN.
[2022-06-01] MEDS: LACTOSE-REDUCED FOOD 237ML LIQUID PO SCH ×3 (07:15→18:43)
[2022-06-01] MEDS: budesonide 0.5mg/2ml UD nebule IH SCH ×2 (08:07→20:12)
[2022-06-01] MEDS: FLUoxetine 20mg capsule PO SCH (09:28)
[2022-06-01] MEDS: aspirin 81mg tab.chew PO SCH (09:28)
[2022-06-01] MEDS: cholecalciferol (vitamin D3) 1,000 unit (25mcg) tablet PO SCH (09:28)
[2022-06-01] MEDS: tamsulosin 0.4mg capsule PO SCH (09:28)
[2022-06-01] MEDS: amLODIPine 5mg tablet PO SCH (09:28)
[2022-06-01] MEDS: carVEDilol 12.5mg tablet PO SCH ×2 (09:29→19:58)
[2022-06-01] MEDS: polyethylene glycol 3350 17gm powd pack PO SCH (09:29)
[2022-06-01] MEDS: ferrous gluconate 324mg tablet PO SCH ×2 (09:29→20:23)
[2022-06-01] MEDS: docusate sod 100mg capsule PO SCH ×2 (09:29→20:23)
[2022-06-01] MEDS: ascorbic acid 500mg tablet PO SCH ×2 (09:29→20:23)
[2022-06-01] MEDS: enoxaparin 40mg/0.4ml syringe SUBCUT SCH (09:29)
[2022-06-01 10:00] VITALS: BP 108/67
[2022-06-01 17:30] VITALS: BP 95/50
[2022-06-01 22:00] VITALS: BP 108/67
[2022-06-02] MEDS: ipratropium/albuterol 3ml nebule NEB SCH ×3 (03:46→16:03)
--- NOTE | 2022-06-02 06:10 | NUR ---
Problems reprioritized. Patient report given, questions answered & plan of care reviewed with RYAN Oseguera.
[2022-06-02 07:00] VITALS: BP 106/62
--- NOTE | 2022-06-02 07:00 | NUR ---
received report from night nurse. Assumed care of patient. Patient resting in bed with all safety measures in place. Will continue to monitor.
[2022-06-02 07:58] LABS: BASOPHILS # (AUTO) 0.1 X10'3 (0-0.2); BASOPHILS % (AUTO) 0.5 % (0-1); EOSINOPHILS # (AUTO) 0.3 X10'3 (0-0.9); EOSINOPHILS % (AUTO) 2.6 % (0-6); HEMATOCRIT 33.9 % (42.0-52.0); HEMOGLOBIN 11.2 g/dl (14.0-17.9); LYMPHOCYTES # (AUTO) 3.1 X10'3 (1.1-4.8); LYMPHOCYTES % (AUTO) 25.3 % (21-51); MEAN CORPUSCULAR HEMOGLOBIN 30.3 PG (27.0-31.0); MEAN CORPUSCULAR VOLUME 91.6 FL (78-98); MEAN PLATELET VOLUME 8.2 FL (7.4-10.4); MONOCYTES # (AUTO) 0.8 X10'3 (0-0.9); MONOCYTES % (AUTO) 6.5 % (2-12); NEUTROPHILS % (AUTO) 65.1 % (42-75); PLATELET COUNT 368 X10'3 (140-440); RED BLOOD COUNT 3.71 X10'6 (4.70-6.10); RED CELL DISTRIBUTION WIDTH 14.7 % (11.5-14.5); WHITE BLOOD COUNT 12.3 X10'3 (4.5-11.0)
[2022-06-02] MEDS: polyethylene glycol 3350 17gm powd pack PO SCH (08:00)
[2022-06-02 08:12] LABS: ALANINE AMINOTRANSFERASE 22 U/L (12-78); ALBUMIN 2.9 G/DL (3.4-5.0); ALBUMIN/GLOBULIN RATIO 0.7 (1.1-1.5); ALKALINE PHOSPHATASE 109 IU/L (46-116); ANION GAP 5 (8-16); ASPARTATE AMINO TRANSFERASE 20 U/L (10-37); BILIRUBIN,TOTAL 0.3 MG/DL (0.1-1.0); BLOOD UREA NITROGEN 38 MG/DL (7-18); BUN/CREATININE RATIO 28.6 (5.4-32.0); CALCIUM 9.6 MG/DL (8.5-10.1); CHLORIDE 102 MMOL/L (99-107); CREATININE 1.33 MG/DL (0.60-1.10); GLUCOSE 106 MG/DL (70-104); POTASSIUM 4.4 MMOL/L (3.5-5.1); SODIUM 139 MMOL/L (135-145); TOTAL CARBON DIOXIDE 32.4 MMOL/L (24-32); eGFR 52 ML/MIN
[2022-06-02] MEDS: ascorbic acid 500mg tablet PO SCH ×2 (08:45→20:15)
[2022-06-02] MEDS: aspirin 81mg tab.chew PO SCH (08:45)
[2022-06-02] MEDS: amLODIPine 5mg tablet PO SCH (08:46)
[2022-06-02] MEDS: enoxaparin 40mg/0.4ml syringe SUBCUT SCH (08:47)
[2022-06-02] MEDS: carVEDilol 12.5mg tablet PO SCH ×2 (08:47→20:14)
[2022-06-02] MEDS: FLUoxetine 20mg capsule PO SCH (08:48)
[2022-06-02] MEDS: traMADol 50MG tablet PO PRN ×2 (08:48→16:31)
[2022-06-02] MEDS: ferrous gluconate 324mg tablet PO SCH ×2 (08:48→20:14)
[2022-06-02] MEDS: cholecalciferol (vitamin D3) 1,000 unit (25mcg) tablet PO SCH (08:48)
[2022-06-02] MEDS: docusate sod 100mg capsule PO SCH ×2 (08:48→20:14)
[2022-06-02] MEDS: LACTOSE-REDUCED FOOD 237ML LIQUID PO SCH ×3 (08:50→16:30)
[2022-06-02] MEDS: tamsulosin 0.4mg capsule PO SCH (08:50)
[2022-06-02] MEDS: budesonide 0.5mg/2ml UD nebule IH SCH (10:02)
--- NOTE | 2022-06-02 16:47 | NUR ---
Patient alert continues to be incontinent for urine. Changed pad 2x this shift. Walked 300 feet with therapy. cleansed and cream applied to radha area. No acute changes this shift. See interventions. All safety measures in place and call light in reach.
[2022-06-02 18:50] VITALS: BP 112/72
--- NOTE | 2022-06-03 06:37 | NUR ---
Patient in room [facility]. I have received report from Mika DAVIS and had the opportunity to ask questions and assume patient care.
--- NOTE | 2022-06-03 07:00 | NUR ---
Problems reprioritized. Patient report given, questions answered & plan of care reviewed with Ana Rosa. Addendum: 06/03/22 at 0701 by Harlan Chance RN Amended: Links added.
[2022-06-03 07:43] VITALS: BP 96/54
[2022-06-03] MEDS: amLODIPine 5mg tablet PO SCH (08:00)
[2022-06-03] MEDS: carVEDilol 12.5mg tablet PO SCH ×2 (08:00→20:40)
[2022-06-03] MEDS: LACTOSE-REDUCED FOOD 237ML LIQUID PO SCH ×3 (08:00→18:00)
[2022-06-03] MEDS: docusate sod 100mg capsule PO SCH (08:00)
[2022-06-03] MEDS: ascorbic acid 500mg tablet PO SCH ×2 (08:00→20:40)
[2022-06-03] MEDS: ferrous gluconate 324mg tablet PO SCH ×2 (08:00→20:40)
[2022-06-03] MEDS: enoxaparin 40mg/0.4ml syringe SUBCUT SCH (09:24)
[2022-06-03] MEDS: tamsulosin 0.4mg capsule PO SCH (09:24)
[2022-06-03] MEDS: aspirin 81mg tab.chew PO SCH (09:25)
[2022-06-03] MEDS: polyethylene glycol 3350 17gm powd pack PO SCH (09:25)
[2022-06-03] MEDS: FLUoxetine 20mg capsule PO SCH (09:25)
[2022-06-03] MEDS: cholecalciferol (vitamin D3) 1,000 unit (25mcg) tablet PO SCH (09:25)
[2022-06-03] MEDS: ipratropium/albuterol 3ml nebule NEB SCH ×3 (09:42→20:11)
[2022-06-03] MEDS: budesonide 0.5mg/2ml UD nebule IH SCH ×2 (09:43→20:11)
[2022-06-03] MEDS: traMADol 50MG tablet PO PRN (10:03)
[2022-06-03 11:00] VITALS: BP 99/68
[2022-06-03] MEDS ORDERED: CefTRIAXone 2gm/D5W 50ml BAG 50 ML IV ONE (17:35)
--- NOTE | 2022-06-03 17:48 | NUR ---
Paged regarding order for no IV. Doctor requests to place new IV and give patient antibiotic.
[2022-06-03 18:00] VITALS: BP 118/73
[2022-06-03 22:00] VITALS: BP 110/79
[2022-06-04] MEDS: ipratropium/albuterol 3ml nebule NEB SCH ×4 (03:00→20:23)
--- NOTE | 2022-06-04 06:36 | NUR ---
Problems reprioritized. Patient report given, questions answered & plan of care reviewed with ROBERT. Addendum: 06/04/22 at 0637 by Harlan Chance RN Amended: Links added.
[2022-06-04 06:51] VITALS: BP 107/64
[2022-06-04 07:27] LABS: BASOPHILS % (AUTO) 0.4 % (0-1); EOSINOPHILS # (AUTO) 0.4 X10'3 (0-0.9); EOSINOPHILS % (AUTO) 3.9 % (0-6); HEMATOCRIT 35.6 % (42.0-52.0); HEMOGLOBIN 11.5 g/dl (14.0-17.9); LYMPHOCYTES # (AUTO) 2.5 X10'3 (1.1-4.8); LYMPHOCYTES % (AUTO) 25.5 % (21-51); MEAN CORPUSCULAR HEMOGLOBIN 29.8 PG (27.0-31.0); MEAN CORPUSCULAR HGB CONC 32.4 g/dL (33.0-36.5); MEAN PLATELET VOLUME 7.8 FL (7.4-10.4); MONOCYTES # (AUTO) 0.8 X10'3 (0-0.9); MONOCYTES % (AUTO) 8.6 % (2-12); NEUTROPHILS % (AUTO) 61.6 % (42-75); PLATELET COUNT 365 X10'3 (140-440); RED BLOOD COUNT 3.87 X10'6 (4.70-6.10); WHITE BLOOD COUNT 9.7 X10'3 (4.5-11.0)
[2022-06-04] MEDS: aspirin 81mg tab.chew PO SCH (07:33)
[2022-06-04] MEDS: tamsulosin 0.4mg capsule PO SCH (07:34)
[2022-06-04] MEDS: ascorbic acid 500mg tablet PO SCH ×2 (07:35→20:03)
[2022-06-04] MEDS: amLODIPine 5mg tablet PO SCH (07:35)
[2022-06-04] MEDS: FLUoxetine 20mg capsule PO SCH (07:36)
[2022-06-04] MEDS: enoxaparin 40mg/0.4ml syringe SUBCUT SCH (07:36)
[2022-06-04] MEDS: polyethylene glycol 3350 17gm powd pack PO SCH (07:37)
[2022-06-04] MEDS: LACTOSE-REDUCED FOOD 237ML LIQUID PO SCH ×3 (07:37→18:03)
[2022-06-04] MEDS: cholecalciferol (vitamin D3) 1,000 unit (25mcg) tablet PO SCH (07:37)
[2022-06-04] MEDS: carVEDilol 12.5mg tablet PO SCH ×2 (07:38→20:03)
[2022-06-04] MEDS: ferrous gluconate 324mg tablet PO SCH ×2 (07:38→20:03)
[2022-06-04 07:46] LABS: ALANINE AMINOTRANSFERASE 23 U/L (12-78); ALBUMIN 2.8 G/DL (3.4-5.0); ALBUMIN/GLOBULIN RATIO 0.7 (1.1-1.5); ALKALINE PHOSPHATASE 94 IU/L (46-116); ANION GAP 2 (8-16); ASPARTATE AMINO TRANSFERASE 19 U/L (10-37); BILIRUBIN,TOTAL 0.2 MG/DL (0.1-1.0); BLOOD UREA NITROGEN 39 MG/DL (7-18); BUN/CREATININE RATIO 25.7 (5.4-32.0); CALCIUM 9.8 MG/DL (8.5-10.1); CHLORIDE 103 MMOL/L (99-107); CREATININE 1.52 MG/DL (0.60-1.10); GLUCOSE 105 MG/DL (70-104); POTASSIUM 4.8 MMOL/L (3.5-5.1); SODIUM 140 MMOL/L (135-145); TOTAL CARBON DIOXIDE 34.6 MMOL/L (24-32); eGFR 45 ML/MIN
[2022-06-04 07:58] LABS: TOTAL CELLS COUNTED 100
[2022-06-04 07:59] LABS: PLATELET ESTIMATE NORMAL
[2022-06-04 08:00] LABS: ELLIPTOCYTES FEW; LARGE PLATELETS FEW; STOMATOCYTES 1+
[2022-06-04] MEDS: budesonide 0.5mg/2ml UD nebule IH SCH ×2 (09:25→20:23)
--- NOTE | 2022-06-04 15:00 | NUR ---
I have reviewed and agree with interventions, assessments, and documentation by CHELY Oseguera.
[2022-06-04 18:00] VITALS: BP 116/59
[2022-06-04] MEDS: cyclobenzaprine 10mg tablet PO PRN (20:03)
[2022-06-04] MEDS: traMADol 50MG tablet PO PRN (20:04)
[2022-06-04 22:00] VITALS: BP 93/59
[2022-06-05] MEDS: ipratropium/albuterol 3ml nebule NEB SCH ×4 (03:00→20:33)
[2022-06-05 06:00] VITALS: BP 113/73
--- NOTE | 2022-06-05 06:15 | NUR ---
Patient in room [facility]. I have received report from Suha DAVIS and had the opportunity to ask questions and assume patient care.
--- NOTE | 2022-06-05 06:30 | NUR ---
Report to Joanna DAVIS.
[2022-06-05] MEDS: polyethylene glycol 3350 17gm powd pack PO SCH (08:00)
[2022-06-05] MEDS: LACTOSE-REDUCED FOOD 237ML LIQUID PO SCH (08:00)
[2022-06-05] MEDS: aspirin 81mg tab.chew PO SCH (08:32)
[2022-06-05] MEDS: budesonide 0.5mg/2ml UD nebule IH SCH ×2 (08:37→20:33)
[2022-06-05] MEDS: cholecalciferol (vitamin D3) 1,000 unit (25mcg) tablet PO SCH (08:38)
[2022-06-05] MEDS: enoxaparin 40mg/0.4ml syringe SUBCUT SCH (08:38)
[2022-06-05] MEDS: carVEDilol 12.5mg tablet PO SCH ×2 (08:39→20:59)
[2022-06-05] MEDS: ascorbic acid 500mg tablet PO SCH ×2 (08:39→20:00)
[2022-06-05] MEDS: amLODIPine 5mg tablet PO SCH (08:39)
[2022-06-05] MEDS: ferrous gluconate 324mg tablet PO SCH ×2 (08:39→20:00)
[2022-06-05] MEDS: tamsulosin 0.4mg capsule PO SCH (08:39)
[2022-06-05] MEDS: FLUoxetine 20mg capsule PO SCH (08:39)
--- NOTE | 2022-06-05 17:30 | NUR ---
I have reviewed and agree with interventions, assessments, and documentation by Joanna Andrea LVN.
[2022-06-05 18:00] VITALS: BP 119/79
[2022-06-05] MEDS: traMADol 50MG tablet PO PRN (20:59)
[2022-06-05 22:00] VITALS: BP 112/74
--- NOTE | 2022-06-05 22:53 | NUR ---
pt has 20guage IV flushed in left arm SL. pt has right knee surgery CDI cary dressing intact. On Q pump intact. pt using IS and doing ankle pumps. noted pt obese with edema noted right leg over left. pt has irregular HR - pt states she has afib. no pain in chest or calves. pain to knee incision only. gatched FOB. lungs clear and positive BS. pt is a/o x4. Addendum: 06/05/22 at 2255 by Anthony Mcelroy RN omit - wrong patient.
--- NOTE | 2022-06-05 22:55 | NUR ---
assessment complete. noted pt a/o x4, has crude humor. lungs clear. regular Heart rhythm. no edema noted. pt has urinal at bedside, no urine visualized. c/o cramps in his calves "when I get up and walk." nothing point tender. LBM 2/8 per pt. SL 20 left AC flushed. noted pt has intentional tremors in hands.
--- NOTE | 2022-06-05 23:26 | NUR ---
Student documentation: I have reviewed interventions, assessments performed and documented by Sylwia AUGUSTIN [facility].
[2022-06-06] MEDS: ipratropium/albuterol 3ml nebule NEB SCH ×4 (02:27→20:30)
--- NOTE | 2022-06-06 05:08 | NUR ---
Gave report to Myriam for one hour and I typed up a written report for the oncoming nurse. Questions were answered.
[2022-06-06 06:00] VITALS: BP 103/55
--- NOTE | 2022-06-06 06:44 | NUR ---
Patient in room [facility]. I have received report from Myriam DAVIS and had the opportunity to ask questions and assume patient care.
[2022-06-06] MEDS: LACTOSE-REDUCED FOOD 237ML LIQUID PO SCH ×2 (08:00→18:00)
[2022-06-06] MEDS: ferrous gluconate 324mg tablet PO SCH ×2 (09:20→20:46)
[2022-06-06] MEDS: tamsulosin 0.4mg capsule PO SCH (09:20)
[2022-06-06] MEDS: ascorbic acid 500mg tablet PO SCH ×2 (09:20→20:47)
[2022-06-06] MEDS: FLUoxetine 20mg capsule PO SCH (09:21)
[2022-06-06] MEDS: aspirin 81mg tab.chew PO SCH (09:21)
[2022-06-06] MEDS: traMADol 50MG tablet PO PRN ×2 (09:21→20:48)
[2022-06-06] MEDS: cholecalciferol (vitamin D3) 1,000 unit (25mcg) tablet PO SCH (09:21)
[2022-06-06] MEDS: enoxaparin 40mg/0.4ml syringe SUBCUT SCH (09:22)
[2022-06-06] MEDS: albuterol 2.5 MG/3 ML nebule NEB PRN (09:29)
[2022-06-06] MEDS: budesonide 0.5mg/2ml UD nebule IH SCH ×2 (09:29→20:30)
[2022-06-06 09:34] LABS: ALBUMIN 2.9 G/DL (3.4-5.0); ANION GAP 3 (8-16); BLOOD UREA NITROGEN 40 MG/DL (7-18); BUN/CREATININE RATIO 30.1 (5.4-32.0); CALCIUM 9.6 MG/DL (8.5-10.1); CHLORIDE 103 MMOL/L (99-107); CREATININE 1.33 MG/DL (0.60-1.10); GLUCOSE 174 MG/DL (70-104); POTASSIUM 4.4 MMOL/L (3.5-5.1); SODIUM 139 MMOL/L (135-145); TOTAL CARBON DIOXIDE 32.8 MMOL/L (24-32); eGFR 52 ML/MIN
[2022-06-06 10:00] VITALS: BP 116/59
[2022-06-06] MEDS: polyethylene glycol 3350 17gm powd pack PO SCH (10:00)
[2022-06-06] MEDS: amLODIPine 5mg tablet PO SCH (10:27)
[2022-06-06] MEDS: carVEDilol 12.5mg tablet PO SCH ×2 (10:27→20:47)
--- NOTE | 2022-06-06 15:14 | NUR ---
FIELD HAND documentation: I have reviewed and agree with all interventions, assessments performed and documented by Melvi Montes LVN.
[2022-06-06 18:00] VITALS: BP 107/57
--- NOTE | 2022-06-06 18:35 | NUR ---
Problems reprioritized. Patient report given, questions answered & plan of care reviewed with Prudence RN.
--- NOTE | 2022-06-06 18:52 | NUR ---
Patient in room [facility]. I have received report from HERMELINDO MO and had the opportunity to ask questions and assume patient care.
[2022-06-06 22:00] VITALS: BP 93/57
[2022-06-07] MEDS: ipratropium/albuterol 3ml nebule NEB SCH ×5 (02:49→20:25)
[2022-06-07 06:00] VITALS: BP 105/62
--- NOTE | 2022-06-07 06:21 | NUR ---
Problems reprioritized. Patient report given, questions answered & plan of care reviewed with HERMELINDO MO.
--- NOTE | 2022-06-07 06:50 | NUR ---
Patient in room [facility]. I have received report from Berna DAVIS and had the opportunity to ask questions and assume patient care.
[2022-06-07] MEDS: LACTOSE-REDUCED FOOD 237ML LIQUID PO SCH ×3 (08:00→18:43)
[2022-06-07] MEDS: budesonide 0.5mg/2ml UD nebule IH SCH ×2 (08:35→20:12)
[2022-06-07] MEDS: FLUoxetine 20mg capsule PO SCH (09:23)
[2022-06-07] MEDS: aspirin 81mg tab.chew PO SCH (09:23)
[2022-06-07] MEDS: carVEDilol 12.5mg tablet PO SCH ×2 (09:24→19:57)
[2022-06-07] MEDS: amLODIPine 5mg tablet PO SCH (09:25)
[2022-06-07] MEDS: ascorbic acid 500mg tablet PO SCH ×2 (09:26→19:57)
[2022-06-07] MEDS: traMADol 50MG tablet PO PRN ×2 (09:29→19:57)
[2022-06-07] MEDS: cholecalciferol (vitamin D3) 1,000 unit (25mcg) tablet PO SCH (09:30)
[2022-06-07] MEDS: ferrous gluconate 324mg tablet PO SCH ×2 (09:30→19:56)
[2022-06-07] MEDS: tamsulosin 0.4mg capsule PO SCH (09:31)
[2022-06-07] MEDS: polyethylene glycol 3350 17gm powd pack PO SCH (09:33)
[2022-06-07] MEDS: enoxaparin 40mg/0.4ml syringe SUBCUT SCH (09:35)
--- NOTE | 2022-06-07 09:48 | NUR ---
Student Medication Administration: For this medication-pass time frame, all medication were reviewed, dispensed, administered and documented per hospital policy by Kike student Nurse and Melvi-Primary nurse.
[2022-06-07 10:00] VITALS: BP 113/72
--- NOTE | 2022-06-07 17:14 | NUR ---
MATERIAL SCHEDULER documentation: I have reviewed and agree with all interventions, assessments performed and documented by Melvi Montes LVN .
[2022-06-07 18:00] VITALS: BP 108/68
--- NOTE | 2022-06-07 18:37 | NUR ---
Problems reprioritized. Patient report given, questions answered & plan of care reviewed with Prudence RN.
--- NOTE | 2022-06-07 18:58 | NUR ---
Student documentation: I have reviewed and agree with all interventions, assessments performed and documented by Antoinette student nurse and Mani Henriquez student nurse, by Eddie Macdonald RN Instructor.
--- NOTE | 2022-06-07 19:13 | NUR ---
Patient in room [facility]. I have received report from HERMELINDO MO and had the opportunity to ask questions and assume patient care.
[2022-06-07] MEDS: cyclobenzaprine 10mg tablet PO PRN (19:56)
[2022-06-07 22:00] VITALS: BP 121/68
--- NOTE | 2022-06-08 06:29 | NUR ---
Problems reprioritized. Patient report given, questions answered & plan of care reviewed with NAVNEET RN.
--- NOTE | 2022-06-08 06:46 | NUR ---
Patient in room [facility]. I have received report from ROGER DAVIS and had the opportunity to ask questions and assume patient care.
[2022-06-08 06:52] VITALS: BP 106/74
[2022-06-08] MEDS: LACTOSE-REDUCED FOOD 237ML LIQUID PO SCH ×3 (08:00→18:00)
[2022-06-08] MEDS: ferrous gluconate 324mg tablet PO SCH ×2 (08:17→19:37)
[2022-06-08] MEDS: FLUoxetine 20mg capsule PO SCH (08:17)
[2022-06-08] MEDS: cholecalciferol (vitamin D3) 1,000 unit (25mcg) tablet PO SCH (08:18)
[2022-06-08] MEDS: aspirin 81mg tab.chew PO SCH (08:19)
[2022-06-08] MEDS: amLODIPine 5mg tablet PO SCH (08:19)
[2022-06-08] MEDS: carVEDilol 12.5mg tablet PO SCH ×2 (08:19→19:37)
[2022-06-08] MEDS: tamsulosin 0.4mg capsule PO SCH (08:20)
[2022-06-08] MEDS: ascorbic acid 500mg tablet PO SCH ×2 (08:20→19:37)
[2022-06-08] MEDS: polyethylene glycol 3350 17gm powd pack PO SCH (08:20)
[2022-06-08] MEDS: enoxaparin 40mg/0.4ml syringe SUBCUT SCH (08:21)
[2022-06-08] MEDS: budesonide 0.5mg/2ml UD nebule IH SCH ×2 (08:25→20:08)
[2022-06-08] MEDS: ipratropium/albuterol 3ml nebule NEB SCH ×3 (08:26→20:07)
--- NOTE | 2022-06-08 10:01 | NUR ---
Reassessment: Pt continues eating well, documented with mostly 100% PO intake of meals while receiving yogurt WB and a smoothie BIDLD meeting estimated nutrient needs. Pt to be receiving an Ensure TID as of 05/29 though despite documentation of acceptance pt hasn't been receiving ONS. Despite ONS no longer being warranted d/t adequate meal intake d/w dietary to send per rx as the order is still active in EMR. Physician paged with recommendation to discontinue ONS as it is no longer warranted, RN notified. [facility] 06/07. No nutrition intervention implemented at this time. Will continue to follow. Recommendations: 1. Continue heart healthy/EC7 diet 2. Discontinue Ensure Plus ONS since no longer needed 3. Yogurt WB, smoothie BIDLD 4. Routine bowel care 5. Weekly scaled weights Addendum: 06/08/22 at [address] Amended: Links added.
[2022-06-08 11:00] VITALS: BP 97/61
--- NOTE | 2022-06-08 17:42 | NUR ---
Unable to walk patient during shift. No tech on the floor due to sitters and not enough marketing support manager for patient census.
[2022-06-08 18:00] VITALS: BP 105/59
--- NOTE | 2022-06-08 18:27 | NUR ---
Problems reprioritized. Patient report given, questions answered & plan of care reviewed with Prudence RN.
--- NOTE | 2022-06-08 18:51 | NUR ---
Patient in room [facility]. I have received report from NAVNEET DAVIS and had the opportunity to ask questions and assume patient care.
[2022-06-08] MEDS: traMADol 50MG tablet PO PRN (19:37)
[2022-06-08 22:00] VITALS: BP 93/58
[2022-06-09] MEDS: ipratropium/albuterol 3ml nebule NEB SCH ×4 (03:00→20:04)
--- NOTE | 2022-06-09 06:12 | NUR ---
Problems reprioritized. Patient report given, questions answered & plan of care reviewed with NAVNEET RN.
--- NOTE | 2022-06-09 06:23 | NUR ---
Patient in room [facility]. I have received report from ROGER DAVIS and had the opportunity to ask questions and assume patient care.
[2022-06-09 06:28] VITALS: BP 125/65
[2022-06-09] MEDS: enoxaparin 40mg/0.4ml syringe SUBCUT SCH (08:00)
[2022-06-09] MEDS: amLODIPine 5mg tablet PO SCH (08:06)
[2022-06-09] MEDS: ascorbic acid 500mg tablet PO SCH ×2 (08:06→20:30)
[2022-06-09] MEDS: ferrous gluconate 324mg tablet PO SCH ×2 (08:07→20:30)
[2022-06-09] MEDS: aspirin 81mg tab.chew PO SCH (08:07)
[2022-06-09] MEDS: tamsulosin 0.4mg capsule PO SCH (08:07)
[2022-06-09] MEDS: carVEDilol 12.5mg tablet PO SCH ×2 (08:07→20:30)
[2022-06-09] MEDS: polyethylene glycol 3350 17gm powd pack PO SCH (08:08)
[2022-06-09] MEDS: cholecalciferol (vitamin D3) 1,000 unit (25mcg) tablet PO SCH (08:08)
[2022-06-09] MEDS: FLUoxetine 20mg capsule PO SCH (08:08)
[2022-06-09] MEDS: LACTOSE-REDUCED FOOD 237ML LIQUID PO SCH ×2 (08:10→13:00)
[2022-06-09] MEDS: budesonide 0.5mg/2ml UD nebule IH SCH ×2 (09:02→20:04)
[2022-06-09 10:00] VITALS: BP 113/53
--- NOTE | 2022-06-09 17:22 | NUR ---
UNABLE TO WALK PATIENT DURING THIS SHIFT
[2022-06-09 18:00] VITALS: BP 116/73
--- NOTE | 2022-06-09 18:49 | NUR ---
Problems reprioritized. Patient report given, questions answered & plan of care reviewed with Stacy DAVIS.
--- NOTE | 2022-06-09 18:50 | NUR ---
Patient in room [facility]. I have received report from RYAN Augustin and had the opportunity to ask questions and assume patient care.Patient resting comfortably on bed, just finished dinner. Only complaint is he has a loose tooth and requests dental floss.
[2022-06-09] MEDS: traMADol 50MG tablet PO PRN (20:34)
[2022-06-09 22:00] VITALS: BP 95/60
[2022-06-10] MEDS: ipratropium/albuterol 3ml nebule NEB SCH ×4 (02:37→20:24)
--- NOTE | 2022-06-10 06:28 | NUR ---
Problems reprioritized. Patient report given, questions answered & plan of care reviewed with RYAN Dunaway.
[2022-06-10 07:00] VITALS: BP 120/65
[2022-06-10 07:39] LABS: BASOPHILS % (AUTO) 0.2 % (0-1); EOSINOPHILS # (AUTO) 0.2 X10'3 (0-0.9); EOSINOPHILS % (AUTO) 1.2 % (0-6); HEMATOCRIT 32.5 % (42.0-52.0); HEMOGLOBIN 10.5 g/dl (14.0-17.9); LYMPHOCYTES # (AUTO) 2.5 X10'3 (1.1-4.8); LYMPHOCYTES % (AUTO) 17.2 % (21-51); MEAN CORPUSCULAR HGB CONC 32.4 g/dL (33.0-36.5); MEAN CORPUSCULAR VOLUME 92.7 FL (78-98); MEAN PLATELET VOLUME 8.3 FL (7.4-10.4); MONOCYTES # (AUTO) 1.2 X10'3 (0-0.9); MONOCYTES % (AUTO) 8.1 % (2-12); NEUTROPHILS # (AUTO) 10.5 X10'3 (1.8-7.7); NEUTROPHILS % (AUTO) 73.3 % (42-75); PLATELET COUNT 346 X10'3 (140-440); RED BLOOD COUNT 3.51 X10'6 (4.70-6.10); RED CELL DISTRIBUTION WIDTH 15.5 % (11.5-14.5); WHITE BLOOD COUNT 14.3 X10'3 (4.5-11.0)
[2022-06-10 07:53] LABS: ALBUMIN 2.6 G/DL (3.4-5.0); ANION GAP 4 (8-16); BLOOD UREA NITROGEN 38 MG/DL (7-18); BUN/CREATININE RATIO 29.2 (5.4-32.0); CALCIUM 9.5 MG/DL (8.5-10.1); CHLORIDE 102 MMOL/L (99-107); GLUCOSE 102 MG/DL (70-104); POTASSIUM 4.4 MMOL/L (3.5-5.1); SODIUM 140 MMOL/L (135-145); TOTAL CARBON DIOXIDE 34.5 MMOL/L (24-32); eGFR 53 ML/MIN
[2022-06-10] MEDS: aspirin 81mg tab.chew PO SCH (08:00)
[2022-06-10] MEDS: tamsulosin 0.4mg capsule PO SCH (08:00)
[2022-06-10] MEDS: carVEDilol 12.5mg tablet PO SCH ×2 (08:00→20:00)
[2022-06-10] MEDS: amLODIPine 5mg tablet PO SCH (08:00)
[2022-06-10] MEDS: polyethylene glycol 3350 17gm powd pack PO SCH (08:00)
[2022-06-10] MEDS: ferrous gluconate 324mg tablet PO SCH ×2 (08:00→21:08)
[2022-06-10] MEDS: ascorbic acid 500mg tablet PO SCH ×2 (08:00→21:08)
[2022-06-10] MEDS: enoxaparin 40mg/0.4ml syringe SUBCUT SCH (08:00)
[2022-06-10] MEDS: FLUoxetine 20mg capsule PO SCH (08:00)
[2022-06-10] MEDS: cholecalciferol (vitamin D3) 1,000 unit (25mcg) tablet PO SCH (08:00)
[2022-06-10] MEDS: budesonide 0.5mg/2ml UD nebule IH SCH ×2 (08:32→20:24)
[2022-06-10] MEDS: traMADol 50MG tablet PO PRN ×2 (09:07→19:43)
[2022-06-10 11:45] VITALS: BP 164/65
--- NOTE | 2022-06-10 18:16 | NUR ---
Gave report to Anika DAVIS.
--- NOTE | 2022-06-10 18:30 | NUR ---
Patient in room [facility]. I have received report from MATHEUS and had the opportunity to ask questions and assume patient care.
[2022-06-10 19:00] VITALS: BP 111/71
[2022-06-10 20:00] VITALS: BP 96/63
[2022-06-10 22:00] VITALS: BP 98/63
[2022-06-11] MEDS: ipratropium/albuterol 3ml nebule NEB SCH ×4 (02:28→19:55)
[2022-06-11 06:00] VITALS: BP 115/66
--- NOTE | 2022-06-11 06:07 | NUR ---
Problems reprioritized. Patient report given, questions answered & plan of care reviewed with
[2022-06-11] MEDS: amLODIPine 5mg tablet PO SCH (08:00)
[2022-06-11] MEDS: ascorbic acid 500mg tablet PO SCH ×2 (08:00→22:35)
--- NOTE | 2022-06-11 08:53 | NUR ---
pT. HAVING A COUGHING FIT. PAGED RT.
--- NOTE | 2022-06-11 09:03 | NUR ---
PAGER ID: [phone] MESSAGE: Roberta Potts 346b sEVERE BRONCHSPASTIC COUGH. RUNNY NOSE. PAGED RT. NEEDS 4lpm 02 VIA N/C TO MAINTAIN SAT OF 90-94 cOURSE RHONCHI RLL ON EXHALATION. ST DOWNGRADED DIET. MATHEUS [id number]
[2022-06-11] MEDS: aspirin 81mg tab.chew PO SCH (09:04)
[2022-06-11] MEDS: tamsulosin 0.4mg capsule PO SCH (09:04)
[2022-06-11] MEDS: traMADol 50MG tablet PO PRN ×2 (09:04→22:33)
[2022-06-11] MEDS: FLUoxetine 20mg capsule PO SCH (09:05)
[2022-06-11] MEDS: cholecalciferol (vitamin D3) 1,000 unit (25mcg) tablet PO SCH (09:05)
[2022-06-11] MEDS: ferrous gluconate 324mg tablet PO SCH ×2 (09:05→22:34)
[2022-06-11] MEDS: carVEDilol 12.5mg tablet PO SCH ×2 (09:06→22:33)
[2022-06-11] MEDS: polyethylene glycol 3350 17gm powd pack PO SCH (09:06)
[2022-06-11] MEDS: enoxaparin 40mg/0.4ml syringe SUBCUT SCH (09:07)
[2022-06-11] MEDS: budesonide 0.5mg/2ml UD nebule IH SCH ×2 (09:15→19:55)
--- NOTE | 2022-06-11 09:46 | NUR ---
F/u 06/11: Pt placed on EC7/NTL per SENIOR UI WEB DEVELOPER recs this AM w/ PO mostly 100% avg meals per EMR meeting estimated needs. Will stop smoothies since not NTL; dietary notified. Recommendations: 1. Continue heart healthy/EC7 diet 2. Yogurt WB 3. Routine bowel care 4. Weekly scaled weights Addendum: 06/11/22 at [address] Amended: Links added.
--- NOTE | 2022-06-11 10:16 | NUR ---
PAGER ID: [phone] MESSAGE: Haim Tapia 346B NO 02 orders or 02 parameter orders- pt. on 4 LPM vis n/c sating at 93%. Emelyn [id number]
[2022-06-11 10:40] VITALS: BP 96/62
[2022-06-11 10:45] LABS: BASOPHILS % (AUTO) 0.1 % (0-1); EOSINOPHILS # (AUTO) 0.1 X10'3 (0-0.9); HEMOGLOBIN 10.4 g/dl (14.0-17.9); LYMPHOCYTES # (AUTO) 1.2 X10'3 (1.1-4.8); LYMPHOCYTES % (AUTO) 10.1 % (21-51); MEAN CORPUSCULAR HEMOGLOBIN 29.8 PG (27.0-31.0); MEAN CORPUSCULAR HGB CONC 32.5 g/dL (33.0-36.5); MEAN CORPUSCULAR VOLUME 91.8 FL (78-98); MEAN PLATELET VOLUME 7.7 FL (7.4-10.4); MONOCYTES # (AUTO) 0.6 X10'3 (0-0.9); MONOCYTES % (AUTO) 4.7 % (2-12); NEUTROPHILS # (AUTO) 10.2 X10'3 (1.8-7.7); NEUTROPHILS % (AUTO) 84.1 % (42-75); PLATELET COUNT 359 X10'3 (140-440); RED BLOOD COUNT 3.49 X10'6 (4.70-6.10); RED CELL DISTRIBUTION WIDTH 15.3 % (11.5-14.5); WHITE BLOOD COUNT 12.2 X10'3 (4.5-11.0)
[2022-06-11 10:56] LABS: ALANINE AMINOTRANSFERASE 24 U/L (12-78); ALBUMIN 2.6 G/DL (3.4-5.0); ALBUMIN/GLOBULIN RATIO 0.6 (1.1-1.5); ALKALINE PHOSPHATASE 87 IU/L (46-116); ANION GAP 1 (8-16); ASPARTATE AMINO TRANSFERASE 17 U/L (10-37); BILIRUBIN,TOTAL 0.3 MG/DL (0.1-1.0); BLOOD UREA NITROGEN 37 MG/DL (7-18); BUN/CREATININE RATIO 25.9 (5.4-32.0); CALCIUM 9.6 MG/DL (8.5-10.1); CHLORIDE 102 MMOL/L (99-107); CREATININE 1.43 MG/DL (0.60-1.10); GLUCOSE 167 MG/DL (70-104); POTASSIUM 4.3 MMOL/L (3.5-5.1); SODIUM 137 MMOL/L (135-145); TOTAL CARBON DIOXIDE 34.5 MMOL/L (24-32); TOTAL PROTEIN 7.1 G/DL (6.4-8.2); eGFR 48 ML/MIN
--- NOTE | 2022-06-11 14:23 | NUR ---
1500 svn NOT GIVEN. pATIENT REFUSED
--- NOTE | 2022-06-11 18:36 | NUR ---
Gave report to Zaynab DAVIS.
[2022-06-11 22:35] VITALS: BP 118/68
[2022-06-12] MEDS: ipratropium/albuterol 3ml nebule NEB SCH ×3 (03:00→16:38)
--- NOTE | 2022-06-12 06:44 | NUR ---
Problems reprioritized. Patient report given, questions answered & plan of care reviewed with RYAN JARVIS.
[2022-06-12 07:00] VITALS: BP 118/70
[2022-06-12] MEDS: CefTRIAXone/D5W-Rocephin 1gm 50 ML IV SCH (08:55)
[2022-06-12] MEDS: enoxaparin 40mg/0.4ml syringe SUBCUT SCH (08:57)
[2022-06-12] MEDS: polyethylene glycol 3350 17gm powd pack PO SCH (08:58)
[2022-06-12] MEDS: FLUoxetine 20mg capsule PO SCH (08:58)
[2022-06-12] MEDS: amLODIPine 5mg tablet PO SCH (08:58)
[2022-06-12] MEDS: aspirin 81mg tab.chew PO SCH (08:58)
[2022-06-12] MEDS: traMADol 50MG tablet PO PRN (08:58)
[2022-06-12] MEDS: cholecalciferol (vitamin D3) 1,000 unit (25mcg) tablet PO SCH (08:58)
[2022-06-12] MEDS: ascorbic acid 500mg tablet PO SCH ×2 (08:59→21:13)
[2022-06-12] MEDS: carVEDilol 12.5mg tablet PO SCH ×2 (08:59→21:13)
[2022-06-12] MEDS: ferrous gluconate 324mg tablet PO SCH ×2 (08:59→21:14)
[2022-06-12] MEDS: tamsulosin 0.4mg capsule PO SCH (08:59)
[2022-06-12] MEDS: budesonide 0.5mg/2ml UD nebule IH SCH (09:00)
--- NOTE | 2022-06-12 09:39 | NUR ---
pt. refused morning SVN
[2022-06-12 11:00] VITALS: BP 113/70
[2022-06-12 18:00] VITALS: BP 114/71
--- NOTE | 2022-06-12 18:19 | NUR ---
Gave report to Zaynab DAVIS.
[2022-06-12] MEDS ORDERED: levoFLOXACIN-Levaquin 500mg/D5 100 ML IV SCH (18:40)
[2022-06-12 21:08] VITALS: BP 128/76
[2022-06-12] MEDS: levoFLOXACIN-Levaquin 500mg/D5 100 ML IV SCH (21:15)
--- NOTE | 2022-06-12 21:52 | NUR ---
Student Medication Administration: For this medication-pass time frame, all medication were reviewed, dispensed, administered and documented per hospital policy by Sylwia Godoy [facility]. Addendum: 06/12/22 at 2158 by Jessie Heredia - Instructor RYAN Student Medication Administration: For this medication-pass time frame, all medication were reviewed, dispensed, administered and documented per hospital policy by Ambreen Carvalho [facility].
--- NOTE | 2022-06-12 22:57 | NUR ---
Student documentation: I have reviewed interventions, assessments performed and documented by Ambreen AUGUSTIN [facility].
[2022-06-13] MEDS: ipratropium/albuterol 3ml nebule NEB SCH ×5 (03:00→21:00)
[2022-06-13] MEDS: budesonide 0.5mg/2ml UD nebule IH SCH ×3 (03:01→21:00)
[2022-06-13 06:00] VITALS: BP 100/63
--- NOTE | 2022-06-13 06:55 | NUR ---
Patient in room [facility]. I have received report from Zaynab DAVIS and had the opportunity to ask questions and assume patient care.
[2022-06-13] MEDS: CefTRIAXone/D5W-Rocephin 1gm 50 ML IV SCH (07:58)
[2022-06-13] MEDS: carVEDilol 12.5mg tablet PO SCH ×2 (08:00→19:52)
[2022-06-13] MEDS: amLODIPine 5mg tablet PO SCH (08:00)
[2022-06-13 09:36] VITALS: BP 108/72
[2022-06-13] MEDS: aspirin 81mg tab.chew PO SCH (09:45)
[2022-06-13] MEDS: polyethylene glycol 3350 17gm powd pack PO SCH (09:46)
[2022-06-13] MEDS: traMADol 50MG tablet PO PRN ×2 (09:46→17:54)
[2022-06-13] MEDS: FLUoxetine 20mg capsule PO SCH (09:46)
[2022-06-13] MEDS: ferrous gluconate 324mg tablet PO SCH ×2 (09:46→19:52)
[2022-06-13] MEDS: tamsulosin 0.4mg capsule PO SCH (09:46)
[2022-06-13] MEDS: enoxaparin 40mg/0.4ml syringe SUBCUT SCH (09:47)
[2022-06-13] MEDS: ascorbic acid 500mg tablet PO SCH ×2 (09:47→19:53)
[2022-06-13] MEDS: cholecalciferol (vitamin D3) 1,000 unit (25mcg) tablet PO SCH (09:47)
[2022-06-13 10:00] VITALS: BP 109/76
--- NOTE | 2022-06-13 10:04 | NUR ---
PAGER ID: [phone] MESSAGE: [id number]- Haim Tapia: Patient's BP noted 100/63 recheck 108/72 HR 68. Do you want to give or hold scheduled norvasc and coreg? JILL Ogden [id number] Addendum: 06/13/22 at 1007 by Melvi Montes LVN MD provided TO to hold norvasc and coreg
--- NOTE | 2022-06-13 18:38 | NUR ---
Problems reprioritized. Patient report given, questions answered & plan of care reviewed with Zaynab DAVIS.
[2022-06-13 19:51] VITALS: BP 125/66
[2022-06-13 22:00] VITALS: BP 117/62
[2022-06-13] MEDS: levoFLOXACIN-Levaquin 500mg/D5 100 ML IV SCH (22:31)
[2022-06-14] MEDS: ipratropium/albuterol 3ml nebule NEB SCH ×4 (03:00→20:06)
--- NOTE | 2022-06-14 06:25 | NUR ---
Problems reprioritized. Patient report given, questions answered & plan of care reviewed with RYAN CASAREZ.
--- NOTE | 2022-06-14 06:52 | NUR ---
Patient in room [facility]. I have received report from Zaynab DAVSI and had the opportunity to ask questions and assume patient care.
[2022-06-14] MEDS: CefTRIAXone/D5W-Rocephin 1gm 50 ML IV SCH (07:48)
[2022-06-14] MEDS: budesonide 0.5mg/2ml UD nebule IH SCH ×2 (09:00→20:06)
[2022-06-14] MEDS: amLODIPine 5mg tablet PO SCH (10:01)
[2022-06-14] MEDS: aspirin 81mg tab.chew PO SCH (10:01)
[2022-06-14] MEDS: ferrous gluconate 324mg tablet PO SCH ×2 (10:01→20:25)
[2022-06-14] MEDS: enoxaparin 40mg/0.4ml syringe SUBCUT SCH (10:01)
[2022-06-14] MEDS: FLUoxetine 20mg capsule PO SCH (10:02)
[2022-06-14] MEDS: ascorbic acid 500mg tablet PO SCH ×2 (10:02→20:25)
[2022-06-14] MEDS: carVEDilol 12.5mg tablet PO SCH ×2 (10:02→20:25)
[2022-06-14] MEDS: polyethylene glycol 3350 17gm powd pack PO SCH (10:02)
[2022-06-14] MEDS: cholecalciferol (vitamin D3) 1,000 unit (25mcg) tablet PO SCH (10:02)
[2022-06-14] MEDS: tamsulosin 0.4mg capsule PO SCH (10:03)
[2022-06-14 18:00] VITALS: BP 122/82
--- NOTE | 2022-06-14 18:31 | NUR ---
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
--- NOTE | 2022-06-14 18:35 | NUR ---
Problems reprioritized. Patient report given, questions answered & plan of care reviewed with Porsha RN.
[2022-06-14] MEDS: levoFLOXACIN-Levaquin 500mg/D5 100 ML IV SCH (20:25)
[2022-06-15 01:41] VITALS: BP 107/81
[2022-06-15] MEDS: ipratropium/albuterol 3ml nebule NEB SCH ×4 (02:44→21:06)
--- NOTE | 2022-06-15 04:08 | NUR ---
Pt. is awake alert oriented able to express needs. Pt. is on 02 2L NC able to use urinal at bedside without assistance. Peripheral IV intact for antibiotic. Urine is yellow and clear. Takes po meds. well. Plan for skilled facility placement soon.
--- NOTE | 2022-06-15 06:56 | NUR ---
Patient in room [facility]. I have received report from Haleigh DAVIS and had the opportunity to ask questions and assume patient care.
[2022-06-15 07:04] VITALS: BP 114/75
[2022-06-15] MEDS: budesonide 0.5mg/2ml UD nebule IH SCH ×2 (08:15→21:06)
[2022-06-15] MEDS: CefTRIAXone/D5W-Rocephin 1gm 50 ML IV SCH (09:18)
[2022-06-15] MEDS: FLUoxetine 20mg capsule PO SCH (09:18)
[2022-06-15] MEDS: amLODIPine 5mg tablet PO SCH (09:18)
[2022-06-15] MEDS: cholecalciferol (vitamin D3) 1,000 unit (25mcg) tablet PO SCH (09:19)
[2022-06-15] MEDS: ascorbic acid 500mg tablet PO SCH ×2 (09:19→21:49)
[2022-06-15] MEDS: aspirin 81mg tab.chew PO SCH (09:19)
[2022-06-15] MEDS: ferrous gluconate 324mg tablet PO SCH ×2 (09:19→21:49)
[2022-06-15] MEDS: carVEDilol 12.5mg tablet PO SCH ×2 (09:19→21:48)
[2022-06-15] MEDS: polyethylene glycol 3350 17gm powd pack PO SCH (09:19)
[2022-06-15] MEDS: tamsulosin 0.4mg capsule PO SCH (09:19)
[2022-06-15] MEDS: enoxaparin 40mg/0.4ml syringe SUBCUT SCH (09:20)
[2022-06-15 10:59] VITALS: BP 106/63
--- NOTE | 2022-06-15 18:30 | NUR ---
Patient in room [facility]. I have received report from TESHA and had the opportunity to ask questions and assume patient care.
--- NOTE | 2022-06-15 18:33 | NUR ---
Problems reprioritized. Patient report given, questions answered & plan of care reviewed with Karla DAVIS.
[2022-06-15 19:00] VITALS: BP 104/58
[2022-06-15] MEDS: traMADol 50MG tablet PO PRN (20:02)
[2022-06-15] MEDS: levoFLOXACIN-Levaquin 500mg/D5 100 ML IV SCH (21:48)
[2022-06-15 22:00] VITALS: BP 116/67
[2022-06-16] MEDS: ipratropium/albuterol 3ml nebule NEB SCH ×4 (02:38→20:54)
--- NOTE | 2022-06-16 06:38 | NUR ---
Problems reprioritized. Patient report given, questions answered & plan of care reviewed with CRISSY.
--- NOTE | 2022-06-16 06:45 | NUR ---
Patient in room [facility] 340B. I have received report from RYAN MCLEAN and had the opportunity to ask questions and assume patient care.
[2022-06-16 08:16] VITALS: BP 137/77
[2022-06-16 11:00] VITALS: BP 106/70
[2022-06-16] MEDS: CefTRIAXone/D5W-Rocephin 1gm 50 ML IV SCH (11:42)
[2022-06-16] MEDS: traMADol 50MG tablet PO PRN (11:43)
[2022-06-16] MEDS: carVEDilol 12.5mg tablet PO SCH ×2 (11:43→20:49)
[2022-06-16] MEDS: aspirin 81mg tab.chew PO SCH (11:43)
[2022-06-16] MEDS: cholecalciferol (vitamin D3) 1,000 unit (25mcg) tablet PO SCH (11:44)
[2022-06-16] MEDS: ascorbic acid 500mg tablet PO SCH ×2 (11:44→20:49)
[2022-06-16] MEDS: amLODIPine 5mg tablet PO SCH (11:45)
[2022-06-16] MEDS: FLUoxetine 20mg capsule PO SCH (11:47)
[2022-06-16] MEDS: tamsulosin 0.4mg capsule PO SCH (11:47)
[2022-06-16] MEDS: enoxaparin 40mg/0.4ml syringe SUBCUT SCH (11:48)
[2022-06-16] MEDS: ferrous gluconate 324mg tablet PO SCH ×2 (11:48→20:49)
[2022-06-16] MEDS: polyethylene glycol 3350 17gm powd pack PO SCH (11:48)
[2022-06-16] MEDS: budesonide 0.5mg/2ml UD nebule IH SCH ×2 (14:19→20:54)
[2022-06-16 18:30] VITALS: BP 107/64
--- NOTE | 2022-06-16 18:30 | NUR ---
Problems reprioritized. Patient report given, questions answered & plan of care reviewed with RYAN BABCOCK.
[2022-06-16] MEDS: levoFLOXACIN-Levaquin 500mg/D5 100 ML IV SCH (20:49)
[2022-06-17] MEDS: ipratropium/albuterol 3ml nebule NEB SCH ×4 (02:26→20:59)
--- NOTE | 2022-06-17 06:48 | NUR ---
Problems reprioritized. Patient report given, questions answered & plan of care reviewed with CRISSY. Addendum: 06/17/22 at 0649 by Harlan Chance RN Amended: Links added.
[2022-06-17 07:00] VITALS: BP 124/68
[2022-06-17] MEDS: budesonide 0.5mg/2ml UD nebule IH SCH ×2 (09:00→20:59)
--- NOTE | 2022-06-17 09:47 | NUR ---
pt. refused 899 SVN
[2022-06-17 11:00] VITALS: BP 104/69
[2022-06-17] MEDS: ferrous gluconate 324mg tablet PO SCH ×2 (11:25→19:37)
[2022-06-17] MEDS: enoxaparin 40mg/0.4ml syringe SUBCUT SCH (11:25)
[2022-06-17] MEDS: aspirin 81mg tab.chew PO SCH (11:25)
[2022-06-17] MEDS: amLODIPine 5mg tablet PO SCH (11:26)
[2022-06-17] MEDS: FLUoxetine 20mg capsule PO SCH (11:27)
[2022-06-17] MEDS: traMADol 50MG tablet PO PRN (11:27)
[2022-06-17] MEDS: carVEDilol 12.5mg tablet PO SCH ×2 (11:27→19:37)
[2022-06-17] MEDS: cholecalciferol (vitamin D3) 1,000 unit (25mcg) tablet PO SCH (11:27)
[2022-06-17] MEDS: polyethylene glycol 3350 17gm powd pack PO SCH (11:28)
[2022-06-17] MEDS: tamsulosin 0.4mg capsule PO SCH (11:29)
[2022-06-17] MEDS: ascorbic acid 500mg tablet PO SCH ×2 (11:30→19:37)
[2022-06-17] MEDS: CefTRIAXone/D5W-Rocephin 1gm 50 ML IV SCH (11:31)
--- NOTE | 2022-06-17 18:41 | NUR ---
Problems reprioritized. Patient report given, questions answered & plan of care reviewed with RYAN BABCOCK.
[2022-06-17 18:50] VITALS: BP 97/60
[2022-06-17] MEDS: levoFLOXACIN-Levaquin 500mg/D5 100 ML IV SCH (21:27)
[2022-06-18] MEDS: ipratropium/albuterol 3ml nebule NEB SCH ×4 (04:32→20:02)
[2022-06-18 06:00] VITALS: BP 119/62
--- NOTE | 2022-06-18 06:30 | NUR ---
Problems reprioritized. Patient report given, questions answered & plan of care reviewed with CRISSY. Addendum: 06/18/22 at 0647 by Harlan Chance RN Amended: Links added.
[2022-06-18] MEDS: budesonide 0.5mg/2ml UD nebule IH SCH ×2 (08:26→20:01)
[2022-06-18] MEDS: aspirin 81mg tab.chew PO SCH (10:21)
[2022-06-18] MEDS: enoxaparin 40mg/0.4ml syringe SUBCUT SCH (10:21)
[2022-06-18] MEDS: ferrous gluconate 324mg tablet PO SCH ×2 (10:21→20:02)
[2022-06-18] MEDS: FLUoxetine 20mg capsule PO SCH (10:22)
[2022-06-18] MEDS: amLODIPine 5mg tablet PO SCH (10:23)
[2022-06-18] MEDS: carVEDilol 12.5mg tablet PO SCH ×2 (10:24→20:02)
[2022-06-18] MEDS: traMADol 50MG tablet PO PRN (10:24)
[2022-06-18] MEDS: cholecalciferol (vitamin D3) 1,000 unit (25mcg) tablet PO SCH (10:24)
[2022-06-18] MEDS: ascorbic acid 500mg tablet PO SCH ×2 (10:25→20:02)
[2022-06-18] MEDS: polyethylene glycol 3350 17gm powd pack PO SCH (10:25)
[2022-06-18] MEDS: tamsulosin 0.4mg capsule PO SCH (10:32)
[2022-06-18] MEDS: CefTRIAXone/D5W-Rocephin 1gm 50 ML IV SCH (10:35)
--- NOTE | 2022-06-18 10:47 | NUR ---
Reassessment: Pt continues eating well, documented with mostly 100% PO intake of meals while receiving yogurt WB meeting estimated nutrient needs. LBM 06/17 per I&O. No nutrition intervention implemented at this time. Will continue to follow. Recommendations: 1. Continue heart healthy/EC7 diet 2. Yogurt WB 3. Routine bowel care 4. Weekly scaled weights Addendum: 06/18/22 at [address] Amended: Links added.
[2022-06-18 11:57] LABS: BASOPHILS % (AUTO) 0.5 % (0-1); EOSINOPHILS # (AUTO) 0.2 X10'3 (0-0.9); HEMATOCRIT 34.2 % (42.0-52.0); HEMOGLOBIN 11.1 g/dl (14.0-17.9); LYMPHOCYTES # (AUTO) 1.8 X10'3 (1.1-4.8); LYMPHOCYTES % (AUTO) 22.9 % (21-51); MEAN CORPUSCULAR HEMOGLOBIN 29.8 PG (27.0-31.0); MEAN CORPUSCULAR HGB CONC 32.3 g/dL (33.0-36.5); MEAN CORPUSCULAR VOLUME 92.2 FL (78-98); MEAN PLATELET VOLUME 7.5 FL (7.4-10.4); MONOCYTES # (AUTO) 0.7 X10'3 (0-0.9); MONOCYTES % (AUTO) 8.9 % (2-12); NEUTROPHILS % (AUTO) 65.7 % (42-75); PLATELET COUNT 333 X10'3 (140-440); RED BLOOD COUNT 3.71 X10'6 (4.70-6.10); RED CELL DISTRIBUTION WIDTH 15.1 % (11.5-14.5); WHITE BLOOD COUNT 7.6 X10'3 (4.5-11.0)
[2022-06-18 12:21] LABS: ALANINE AMINOTRANSFERASE 16 U/L (12-78); ALBUMIN 2.7 G/DL (3.4-5.0); ALBUMIN/GLOBULIN RATIO 0.7 (1.1-1.5); ALKALINE PHOSPHATASE 77 IU/L (46-116); ANION GAP 1 (8-16); ASPARTATE AMINO TRANSFERASE 12 U/L (10-37); BILIRUBIN,TOTAL 0.2 MG/DL (0.1-1.0); BLOOD UREA NITROGEN 24 MG/DL (7-18); BUN/CREATININE RATIO 18.3 (10.0-20.0); CALCIUM 9.3 MG/DL (8.5-10.1); CHLORIDE 104 MMOL/L (99-107); CREATININE 1.31 MG/DL (0.60-1.10); GLUCOSE 109 MG/DL (70-104); MAGNESIUM 2.1 MG/DL (1.5-2.4); PHOSPHORUS 2.8 MG/DL (2.3-4.5); SODIUM 143 MMOL/L (135-145); TOTAL CARBON DIOXIDE 37.6 MMOL/L (24-32); TOTAL PROTEIN 6.5 G/DL (6.4-8.2); eGFR 53 ML/MIN
[2022-06-18 14:00] VITALS: BP 107/65
[2022-06-18 18:00] VITALS: BP 100/63
--- NOTE | 2022-06-18 18:52 | NUR ---
Patient in room [facility]. I have received report from RYAN Rosales and had the opportunity to ask questions and assume patient care.
--- NOTE | 2022-06-18 19:52 | NUR ---
Problems reprioritized. Patient report given, questions answered & plan of care reviewed with RYAN KILPATRICK.
[2022-06-18] MEDS: levoFLOXACIN-Levaquin 500mg/D5 100 ML IV SCH (20:03)
[2022-06-18 22:00] VITALS: BP 95/59
[2022-06-19] MEDS: ipratropium/albuterol 3ml nebule NEB SCH ×4 (03:00→20:33)
[2022-06-19 06:00] VITALS: BP 124/73
--- NOTE | 2022-06-19 06:30 | NUR ---
Problems reprioritized. Patient report given, questions answered & plan of care reviewed with CHELY Huang.
--- NOTE | 2022-06-19 06:42 | NUR ---
Received report from RYAN Frances: reviewed plan of care. Pt checked on,NAD.
[2022-06-19] MEDS: enoxaparin 40mg/0.4ml syringe SUBCUT SCH (07:52)
[2022-06-19] MEDS: aspirin 81mg tab.chew PO SCH (07:53)
[2022-06-19] MEDS: FLUoxetine 20mg capsule PO SCH (07:53)
[2022-06-19] MEDS: cholecalciferol (vitamin D3) 1,000 unit (25mcg) tablet PO SCH (07:54)
[2022-06-19] MEDS: amLODIPine 5mg tablet PO SCH (07:54)
[2022-06-19] MEDS: carVEDilol 12.5mg tablet PO SCH ×2 (07:54→19:25)
[2022-06-19] MEDS: tamsulosin 0.4mg capsule PO SCH (07:55)
[2022-06-19] MEDS: ferrous gluconate 324mg tablet PO SCH ×2 (07:55→19:25)
[2022-06-19] MEDS: polyethylene glycol 3350 17gm powd pack PO SCH (07:56)
[2022-06-19] MEDS: ascorbic acid 500mg tablet PO SCH ×2 (07:57→19:25)
[2022-06-19] MEDS: CefTRIAXone/D5W-Rocephin 1gm 50 ML IV SCH (08:21)
[2022-06-19] MEDS: budesonide 0.5mg/2ml UD nebule IH SCH ×2 (08:58→20:33)
[2022-06-19 10:00] VITALS: BP 112/70
--- NOTE | 2022-06-19 12:19 | NUR ---
Pt's IV is no longer flowing properly. Paged the doctor to potentially d/c.
--- NOTE | 2022-06-19 14:50 | NUR ---
pT. REFUSED 1500 svn. nO sob OBSERVED
--- NOTE | 2022-06-19 16:16 | NUR ---
Spoke w/ Dr. Franco, okayed for the IV to be d/c'd. IV taken out, cannula intact.
--- NOTE | 2022-06-19 17:00 | NUR ---
I have reviewed and agree with interventions, assessments, and documentation by Reina Enrique LVN.
[2022-06-19 18:00] VITALS: BP 118/70
--- NOTE | 2022-06-19 18:05 | NUR ---
Patient in room [facility]. I have received report from CHELY Huang and had the opportunity to ask questions and assume patient care.
--- NOTE | 2022-06-19 18:28 | NUR ---
Report regarding the pt was relayed to RYAN Frances. Plan of care, concerns, questions where addressed. Patient is in NAD at this time.
[2022-06-19] MEDS: traMADol 50MG tablet PO PRN (19:30)
[2022-06-19] MEDS: guaiFENesin/DM 10ml UD oral syrup PO PRN (19:30)
[2022-06-19 22:00] VITALS: BP 109/65
[2022-06-20] MEDS: ipratropium/albuterol 3ml nebule NEB SCH ×4 (03:00→20:01)
[2022-06-20 06:00] VITALS: BP 111/63
--- NOTE | 2022-06-20 06:28 | NUR ---
Problems reprioritized. Patient report given, questions answered & plan of care reviewed with CHELY May.
--- NOTE | 2022-06-20 06:42 | NUR ---
Patient in room [facility]. I have received report from RYAN Frances and had the opportunity to ask questions and assume patient care.
[2022-06-20] MEDS: polyethylene glycol 3350 17gm powd pack PO SCH (08:00)
[2022-06-20] MEDS: aspirin 81mg tab.chew PO SCH (08:14)
[2022-06-20] MEDS: carVEDilol 12.5mg tablet PO SCH ×2 (08:14→20:10)
[2022-06-20] MEDS: tamsulosin 0.4mg capsule PO SCH (08:15)
[2022-06-20] MEDS: ferrous gluconate 324mg tablet PO SCH ×2 (08:15→20:09)
[2022-06-20] MEDS: FLUoxetine 20mg capsule PO SCH (08:16)
[2022-06-20] MEDS: amLODIPine 5mg tablet PO SCH (08:16)
[2022-06-20] MEDS: traMADol 50MG tablet PO PRN ×2 (08:17→20:15)
[2022-06-20] MEDS: cholecalciferol (vitamin D3) 1,000 unit (25mcg) tablet PO SCH (08:17)
[2022-06-20] MEDS: ascorbic acid 500mg tablet PO SCH ×2 (08:17→20:09)
[2022-06-20] MEDS: enoxaparin 40mg/0.4ml syringe SUBCUT SCH (08:18)
[2022-06-20] MEDS: budesonide 0.5mg/2ml UD nebule IH SCH ×2 (08:45→20:01)
[2022-06-20 11:00] VITALS: BP 97/49
--- NOTE | 2022-06-20 11:59 | NUR ---
Message: Vi TapiaB. Has order for Tramadol 50mg Q8 or 100 mg Q4. Can I have order for 50mg only Q4? Thanks, Yadira [phone]
[2022-06-20] MEDS: acetaminophen 325mg tablet PO PRN (12:44)
[2022-06-20 18:00] VITALS: BP 96/55
--- NOTE | 2022-06-20 18:10 | NUR ---
Patient in room [facility]. I have received report from CHELY May and had the opportunity to ask questions and assume patient care.
--- NOTE | 2022-06-20 18:14 | NUR ---
Problems reprioritized. Patient report given, questions answered & plan of care reviewed with RYAN Frances.
[2022-06-20 22:00] VITALS: BP 109/61
[2022-06-21] MEDS: ipratropium/albuterol 3ml nebule NEB SCH ×4 (02:58→20:32)
[2022-06-21 06:00] VITALS: BP 103/59
--- NOTE | 2022-06-21 06:05 | NUR ---
Problems reprioritized. Patient report given, questions answered & plan of care reviewed with CHELY May.
--- NOTE | 2022-06-21 07:10 | NUR ---
Patient in room [facility]. I have received report from RYAN Frances and had the opportunity to ask questions and assume patient care.
[2022-06-21] MEDS: polyethylene glycol 3350 17gm powd pack PO SCH (08:00)
[2022-06-21] MEDS: budesonide 0.5mg/2ml UD nebule IH SCH ×2 (08:17→20:32)
[2022-06-21] MEDS: carVEDilol 12.5mg tablet PO SCH ×2 (08:43→19:17)
[2022-06-21] MEDS: aspirin 81mg tab.chew PO SCH (08:43)
[2022-06-21] MEDS: tamsulosin 0.4mg capsule PO SCH (08:44)
[2022-06-21] MEDS: ferrous gluconate 324mg tablet PO SCH ×2 (08:44→19:17)
[2022-06-21] MEDS: amLODIPine 5mg tablet PO SCH (08:45)
[2022-06-21] MEDS: cholecalciferol (vitamin D3) 1,000 unit (25mcg) tablet PO SCH (08:45)
[2022-06-21] MEDS: FLUoxetine 20mg capsule PO SCH (08:45)
[2022-06-21] MEDS: ascorbic acid 500mg tablet PO SCH ×2 (08:46→19:18)
[2022-06-21] MEDS: enoxaparin 40mg/0.4ml syringe SUBCUT SCH (08:47)
[2022-06-21] MEDS: traMADol 50MG tablet PO PRN ×2 (08:51→19:25)
[2022-06-21 09:46] VITALS: BP 109/55
[2022-06-21 11:00] VITALS: BP 105/55
--- NOTE | 2022-06-21 15:15 | NUR ---
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
[2022-06-21 18:30] VITALS: BP 150/95
--- NOTE | 2022-06-21 18:30 | NUR ---
Patient in room [facility]. I have received report from RYAN KEENAN and had the opportunity to ask questions and assume patient care. Addendum: 06/21/22 at 1910 by Leticia Bateman RN Amended: Links added.
--- NOTE | 2022-06-21 18:33 | NUR ---
Problems reprioritized. Patient report given, questions answered & plan of care reviewed with RYAN Blandon.
--- NOTE | 2022-06-21 18:59 | NUR ---
Student documentation: I have reviewed and agree with all interventions, assessments performed and documented by Mani Wilkinson student nurse, by Eddie Macdonald RN instructor.
--- NOTE | 2022-06-21 19:29 | NUR ---
REFUSED GEORGE CARE AT THIS TIME, STATES DID BY HIMSELF. Addendum: 06/21/22 at 1930 by Leticia Bateman RN Amended: Links added.
[2022-06-21 22:30] VITALS: BP 88/47
[2022-06-21 22:48] VITALS: BP 97/56
[2022-06-22] MEDS: ipratropium/albuterol 3ml nebule NEB SCH ×4 (02:24→20:17)
--- NOTE | 2022-06-22 06:23 | NUR ---
Problems reprioritized. Patient report given, questions answered & plan of care reviewed with RYAN May. Addendum: 06/22/22 at 0624 by Leticia Bateman RN Amended: Links added.
[2022-06-22 07:00] VITALS: BP 136/76
--- NOTE | 2022-06-22 07:35 | NUR ---
Patient in room [facility]. I have received report from RYAN Blandon and had the opportunity to ask questions and assume patient care.
[2022-06-22] MEDS: polyethylene glycol 3350 17gm powd pack PO SCH (08:00)
[2022-06-22] MEDS: budesonide 0.5mg/2ml UD nebule IH SCH ×2 (08:23→20:17)
[2022-06-22] MEDS: aspirin 81mg tab.chew PO SCH (09:43)
[2022-06-22] MEDS: ferrous gluconate 324mg tablet PO SCH ×2 (09:44→20:16)
[2022-06-22] MEDS: carVEDilol 12.5mg tablet PO SCH ×2 (09:44→20:16)
[2022-06-22] MEDS: tamsulosin 0.4mg capsule PO SCH (09:45)
[2022-06-22] MEDS: amLODIPine 5mg tablet PO SCH (09:50)
[2022-06-22] MEDS: ascorbic acid 500mg tablet PO SCH ×2 (09:50→20:17)
[2022-06-22] MEDS: cholecalciferol (vitamin D3) 1,000 unit (25mcg) tablet PO SCH (09:51)
[2022-06-22] MEDS: FLUoxetine 20mg capsule PO SCH (09:51)
[2022-06-22] MEDS: enoxaparin 40mg/0.4ml syringe SUBCUT SCH (09:51)
[2022-06-22 10:00] VITALS: BP 113/63
[2022-06-22 18:00] VITALS: BP 122/63
[2022-06-22] MEDS: traMADol 50MG tablet PO PRN (20:52)
[2022-06-22 22:00] VITALS: BP 113/68
[2022-06-23] MEDS: ipratropium/albuterol 3ml nebule NEB SCH ×3 (02:17→20:08)
--- NOTE | 2022-06-23 05:34 | NUR ---
REVIEWED AND AGREE WITH DOCUMENTATION FROM REE MO.
--- NOTE | 2022-06-23 06:25 | NUR ---
Problems reprioritized. Patient report given, questions answered & plan of care reviewed with CHELY Oseguera.
--- NOTE | 2022-06-23 07:02 | NUR ---
Patient in room [facility]. I have received report from Yadira MO and had the opportunity to ask questions and assume patient care.
[2022-06-23] MEDS: budesonide 0.5mg/2ml UD nebule IH SCH ×2 (07:40→20:08)
[2022-06-23] MEDS: aspirin 81mg tab.chew PO SCH (07:49)
[2022-06-23] MEDS: tamsulosin 0.4mg capsule PO SCH (07:50)
[2022-06-23] MEDS: carVEDilol 12.5mg tablet PO SCH ×2 (07:50→20:08)
[2022-06-23] MEDS: cholecalciferol (vitamin D3) 1,000 unit (25mcg) tablet PO SCH (07:50)
[2022-06-23] MEDS: FLUoxetine 20mg capsule PO SCH (07:50)
[2022-06-23] MEDS: ascorbic acid 500mg tablet PO SCH ×2 (07:51→20:08)
[2022-06-23] MEDS: polyethylene glycol 3350 17gm powd pack PO SCH (07:51)
[2022-06-23] MEDS: ferrous gluconate 324mg tablet PO SCH ×2 (07:51→20:08)
[2022-06-23] MEDS: amLODIPine 5mg tablet PO SCH (07:51)
[2022-06-23] MEDS: enoxaparin 40mg/0.4ml syringe SUBCUT SCH (07:51)
[2022-06-23 11:04] VITALS: BP 110/69
[2022-06-23 16:11] VITALS: BP 103/70
[2022-06-23] MEDS: traMADol 50MG tablet PO PRN (17:47)
--- NOTE | 2022-06-23 17:59 | NUR ---
patient wound care to right foot completed. Pictures were not patient refused. Patient showered, walked with staff [address] Blood sugars continue at level 5. Tolerated IV zosyn with no adverse affevts from medications. VS rr even and unlabored. 02 > 92%
[2022-06-23 18:40] VITALS: BP 122/60
--- NOTE | 2022-06-23 21:30 | NUR ---
PT with poor teeth. He has a very loose tooth near the front which is painful and he wants it out. I attached my forceps to the tooth and he pulled it out himself. Scant bleeding noted which stopped quickly.
[2022-06-23 22:00] VITALS: BP 106/66
[2022-06-23] MEDS: cyclobenzaprine 10mg tablet PO PRN (22:33)
[2022-06-24] MEDS: ipratropium/albuterol 3ml nebule NEB SCH ×4 (03:00→20:26)
--- NOTE | 2022-06-24 06:13 | NUR ---
Problems reprioritized. Patient report given, questions answered & plan of care reviewed with Ana Rosa. Addendum: 06/24/22 at 0614 by Harlan Chance RN Amended: Links added.
--- NOTE | 2022-06-24 06:26 | NUR ---
received report from kirill DAVIS assumed care of patient. Will continue to monitor.
[2022-06-24 06:51] VITALS: BP 102/67
[2022-06-24] MEDS: budesonide 0.5mg/2ml UD nebule IH SCH ×2 (07:43→20:26)
[2022-06-24] MEDS: FLUoxetine 20mg capsule PO SCH (08:08)
[2022-06-24] MEDS: ferrous gluconate 324mg tablet PO SCH ×2 (08:08→19:31)
[2022-06-24] MEDS: aspirin 81mg tab.chew PO SCH (08:08)
[2022-06-24] MEDS: carVEDilol 12.5mg tablet PO SCH ×2 (08:08→19:31)
[2022-06-24] MEDS: amLODIPine 5mg tablet PO SCH (08:08)
[2022-06-24] MEDS: cholecalciferol (vitamin D3) 1,000 unit (25mcg) tablet PO SCH (08:08)
[2022-06-24] MEDS: enoxaparin 40mg/0.4ml syringe SUBCUT SCH (08:09)
[2022-06-24] MEDS: tamsulosin 0.4mg capsule PO SCH (08:09)
[2022-06-24] MEDS: polyethylene glycol 3350 17gm powd pack PO SCH (08:09)
[2022-06-24] MEDS: ascorbic acid 500mg tablet PO SCH ×2 (08:10→19:31)
[2022-06-24 10:00] VITALS: BP 91/59
--- NOTE | 2022-06-24 12:49 | NUR ---
patient given shower by staff patient continues to make inappropriate sexual remarks to staff. Spoke to patient regarding the way it makes staff feel and he stated " I will try and stop all germán girls are so pretty it's hard". Patients diet changed to minced moist thin liquid diet and tolerating well. No acute changes this shift. VSS. All safety measures in place. Will continue to monitor.
--- NOTE | 2022-06-24 17:30 | NUR ---
I have reviewed and agree with interventions, assessments and documentation by Ana Rosa Enrique LVN.
[2022-06-24 18:30] VITALS: BP 115/77
[2022-06-24 22:00] VITALS: BP 104/63
[2022-06-25] MEDS: ipratropium/albuterol 3ml nebule NEB SCH ×4 (02:46→20:53)
--- NOTE | 2022-06-25 06:07 | NUR ---
Patient in room [facility]. I have received report from Mika DAVIS and had the opportunity to ask questions and assume patient care.
[2022-06-25 06:10] VITALS: BP 108/60
--- NOTE | 2022-06-25 06:28 | NUR ---
Problems reprioritized. Patient report given, questions answered & plan of care reviewed with Ana Rosa. Addendum: 06/25/22 at 0628 by Harlan Chance RN Amended: Links added.
[2022-06-25] MEDS: FLUoxetine 20mg capsule PO SCH (07:53)
[2022-06-25] MEDS: ferrous gluconate 324mg tablet PO SCH ×2 (07:53→22:08)
[2022-06-25] MEDS: cholecalciferol (vitamin D3) 1,000 unit (25mcg) tablet PO SCH (07:53)
[2022-06-25] MEDS: enoxaparin 40mg/0.4ml syringe SUBCUT SCH (07:53)
[2022-06-25] MEDS: carVEDilol 12.5mg tablet PO SCH ×2 (07:53→22:09)
[2022-06-25] MEDS: tamsulosin 0.4mg capsule PO SCH (07:54)
[2022-06-25] MEDS: amLODIPine 5mg tablet PO SCH (07:54)
[2022-06-25] MEDS: aspirin 81mg tab.chew PO SCH (07:54)
[2022-06-25] MEDS: ascorbic acid 500mg tablet PO SCH ×2 (07:54→22:09)
[2022-06-25] MEDS: polyethylene glycol 3350 17gm powd pack PO SCH (07:55)
[2022-06-25] MEDS: budesonide 0.5mg/2ml UD nebule IH SCH ×2 (08:19→20:53)
[2022-06-25 10:25] VITALS: BP 94/61
--- NOTE | 2022-06-25 11:35 | NUR ---
Reassessment: Pt s/p f/u BSS with ST recs SB6 diet with thin liquids. Pt continues eating well, documented with mostly 100% PO intake of meals while receiving yogurt WB meeting estimated nutrient needs. LBM 06/24 per I&O. No nutrition intervention implemented at this time. Will continue to follow. Recommendations: 1. Continue heart healthy/SB6 diet with thin liquids per ST recs 2. Yogurt WB 3. Routine bowel care 4. Weekly scaled weights Addendum: 06/25/22 at [address] Amended: Links added.
[2022-06-25] MEDS: traMADol 50MG tablet PO PRN ×2 (13:57→22:08)
--- NOTE | 2022-06-25 15:59 | NUR ---
patient tolerated all medications. No acute changes this shift. Walked 300 ft with staff and tolerated well. No SOB. Bp within patients range. Upper body bed bath given. Face washed. Urine clear with no foul smell. No BM this shift. Tramadol given for pain. All safety measures in place and call light in reach.
--- NOTE | 2022-06-25 17:30 | NUR ---
I have reviewed and agree with interventions, assessments and documentation by Ana Rosa Enrique LVN.
[2022-06-25 18:00] VITALS: BP 110/73
[2022-06-25 21:05] VITALS: BP 113/53
[2022-06-25 22:00] VITALS: BP 131/105
[2022-06-26] MEDS: ipratropium/albuterol 3ml nebule NEB SCH ×4 (03:00→20:37)
[2022-06-26 06:00] VITALS: BP 115/52
--- NOTE | 2022-06-26 06:29 | NUR ---
Problems reprioritized. Patient report given, questions answered & plan of care reviewed with CHELY KEENAN.
--- NOTE | 2022-06-26 06:30 | NUR ---
Patient in room [facility]. I have received report from RYAN Worthy and had the opportunity to ask questions and assume patient care.
[2022-06-26] MEDS: polyethylene glycol 3350 17gm powd pack PO SCH (08:00)
[2022-06-26] MEDS: ferrous gluconate 324mg tablet PO SCH ×2 (08:10→21:07)
[2022-06-26] MEDS: carVEDilol 12.5mg tablet PO SCH ×2 (08:10→21:05)
[2022-06-26] MEDS: aspirin 81mg tab.chew PO SCH (08:10)
[2022-06-26] MEDS: FLUoxetine 20mg capsule PO SCH (08:11)
[2022-06-26] MEDS: tamsulosin 0.4mg capsule PO SCH (08:11)
[2022-06-26] MEDS: amLODIPine 5mg tablet PO SCH (08:11)
[2022-06-26] MEDS: enoxaparin 40mg/0.4ml syringe SUBCUT SCH (08:12)
[2022-06-26] MEDS: ascorbic acid 500mg tablet PO SCH ×2 (08:12→21:06)
[2022-06-26] MEDS: cholecalciferol (vitamin D3) 1,000 unit (25mcg) tablet PO SCH (08:12)
[2022-06-26] MEDS: budesonide 0.5mg/2ml UD nebule IH SCH ×2 (08:23→20:37)
[2022-06-26 11:00] VITALS: BP 94/54
--- NOTE | 2022-06-26 17:44 | NUR ---
I have reviewed and agree with interventions, assessments, and documentation by CHELY May.
[2022-06-26 18:00] VITALS: BP 100/55
--- NOTE | 2022-06-26 18:06 | NUR ---
Problems reprioritized. Patient report given, questions answered & plan of care reviewed with RYAN Desai.
--- NOTE | 2022-06-26 21:36 | NUR ---
Student documentation: I have reviewed interventions, assessments performed and documented by Ambreen AUGUSTIN [facility].
--- NOTE | 2022-06-26 21:37 | NUR ---
Student Medication Administration: For this medication-pass time frame, all medication were reviewed, dispensed, administered and documented per hospital policy by Ambreen AUGUSTIN [facility].
[2022-06-26 22:00] VITALS: BP 154/61
--- NOTE | 2022-06-26 22:21 | NUR ---
Reviewed student assessment and in agreement.
[2022-06-27] MEDS: ipratropium/albuterol 3ml nebule NEB SCH ×4 (03:00→20:12)
[2022-06-27 06:00] VITALS: BP 150/72
[2022-06-27 06:16] LABS: BASOPHILS % (AUTO) 0.3 % (0-1); EOSINOPHILS # (AUTO) 0.3 X10'3 (0-0.9); EOSINOPHILS % (AUTO) 2.9 % (0-6); HEMATOCRIT 34.6 % (42.0-52.0); HEMOGLOBIN 11.4 g/dl (14.0-17.9); LYMPHOCYTES # (AUTO) 2.6 X10'3 (1.1-4.8); LYMPHOCYTES % (AUTO) 27.9 % (21-51); MEAN CORPUSCULAR HEMOGLOBIN 30.3 PG (27.0-31.0); MEAN CORPUSCULAR HGB CONC 32.9 g/dL (33.0-36.5); MEAN CORPUSCULAR VOLUME 91.9 FL (78-98); MEAN PLATELET VOLUME 8.5 FL (7.4-10.4); MONOCYTES # (AUTO) 0.7 X10'3 (0-0.9); MONOCYTES % (AUTO) 7.6 % (2-12); NEUTROPHILS # (AUTO) 5.7 X10'3 (1.8-7.7); NEUTROPHILS % (AUTO) 61.3 % (42-75); PLATELET COUNT 289 X10'3 (140-440); RED BLOOD COUNT 3.77 X10'6 (4.70-6.10); RED CELL DISTRIBUTION WIDTH 15.4 % (11.5-14.5); WHITE BLOOD COUNT 9.2 X10'3 (4.5-11.0)
--- NOTE | 2022-06-27 06:55 | NUR ---
Patient in room [facility]. I have received report from RYAN Desai and had the opportunity to ask questions and assume patient care.
--- NOTE | 2022-06-27 07:00 | NUR ---
Problems reprioritized. Patient report given, questions answered & plan of care reviewed with Yadira MO.
[2022-06-27] MEDS: budesonide 0.5mg/2ml UD nebule IH SCH ×2 (07:53→20:12)
[2022-06-27] MEDS: cholecalciferol (vitamin D3) 1,000 unit (25mcg) tablet PO SCH (08:42)
[2022-06-27] MEDS: amLODIPine 5mg tablet PO SCH (08:42)
[2022-06-27] MEDS: FLUoxetine 20mg capsule PO SCH (08:42)
[2022-06-27] MEDS: tamsulosin 0.4mg capsule PO SCH (08:43)
[2022-06-27] MEDS: ascorbic acid 500mg tablet PO SCH ×2 (08:43→19:32)
[2022-06-27] MEDS: carVEDilol 12.5mg tablet PO SCH ×2 (08:43→19:26)
[2022-06-27] MEDS: aspirin 81mg tab.chew PO SCH (08:43)
[2022-06-27] MEDS: ferrous gluconate 324mg tablet PO SCH ×2 (08:44→19:31)
[2022-06-27] MEDS: polyethylene glycol 3350 17gm powd pack PO SCH (08:44)
[2022-06-27] MEDS: enoxaparin 40mg/0.4ml syringe SUBCUT SCH (08:45)
[2022-06-27 10:00] VITALS: BP 106/60
--- NOTE | 2022-06-27 19:26 | NUR ---
HELD COREG B/P 92/68 P 68.
[2022-06-28] MEDS: ipratropium/albuterol 3ml nebule NEB SCH ×4 (03:00→21:00)
[2022-06-28 06:00] VITALS: BP 137/77
--- NOTE | 2022-06-28 06:59 | NUR ---
Problems reprioritized. Patient report given, questions answered & plan of care reviewed with Reina MO.
[2022-06-28 07:24] VITALS: BP 131/76
[2022-06-28] MEDS: tamsulosin 0.4mg capsule PO SCH (07:43)
[2022-06-28] MEDS: ascorbic acid 500mg tablet PO SCH ×2 (07:43→20:26)
[2022-06-28] MEDS: enoxaparin 40mg/0.4ml syringe SUBCUT SCH (07:43)
[2022-06-28] MEDS: FLUoxetine 20mg capsule PO SCH (07:43)
[2022-06-28] MEDS: ferrous gluconate 324mg tablet PO SCH ×2 (07:44→20:26)
[2022-06-28] MEDS: cholecalciferol (vitamin D3) 1,000 unit (25mcg) tablet PO SCH (07:44)
[2022-06-28] MEDS: carVEDilol 12.5mg tablet PO SCH ×2 (07:45→20:28)
[2022-06-28] MEDS: amLODIPine 5mg tablet PO SCH (07:45)
[2022-06-28] MEDS: polyethylene glycol 3350 17gm powd pack PO SCH (07:46)
[2022-06-28] MEDS: aspirin 81mg tab.chew PO SCH (07:46)
--- NOTE | 2022-06-28 07:59 | NUR ---
Patient in room [facility]. I have received report from Giselle JAIME and had the opportunity to ask questions and assume patient care. Pt is laying supine in bed, and is resting comfortably. Pt on RA. No s/s of distress, or s/s of pain at this time. BLL, call light wihtin reach, frequently used items inreach, frequent rounding, peer specialist socks on, will continue to monitor.
[2022-06-28] MEDS: budesonide 0.5mg/2ml UD nebule IH SCH ×2 (08:50→21:00)
[2022-06-28 10:00] VITALS: BP 120/73
--- NOTE | 2022-06-28 11:09 | NUR ---
Student Medication Administration: For this medication-pass time frame, all medication were reviewed, dispensed, administered and documented per hospital policy by Kike-student nurse and jitendra-primary nurse.
[2022-06-28 12:12] VITALS: BP 103/62
[2022-06-28 18:00] VITALS: BP 117/68
--- NOTE | 2022-06-28 18:21 | NUR ---
Problems reprioritized. Patient report given, questions answered & plan of care reviewed with Rj DAVIS.
--- NOTE | 2022-06-28 18:45 | NUR ---
Patient in room [facility]. I have received report from ROBBIE DAVIS/ JACOB STUDENT and had the opportunity to ask questions and assume patient care.
--- NOTE | 2022-06-28 20:27 | NUR ---
Student documentation: I have reviewed and agree with all interventions, assessments performed and documented by Raina Vizcarra SN by Eddie Macdonald RN Instructor.
[2022-06-28] MEDS: traMADol 50MG tablet PO PRN (20:28)
[2022-06-28 23:56] VITALS: BP 108/64
[2022-06-29] MEDS: ipratropium/albuterol 3ml nebule NEB SCH ×4 (02:36→21:00)
--- NOTE | 2022-06-29 05:19 | NUR ---
Student Medication Administration: For this medication-pass time frame, all medication were reviewed, dispensed, administered and documented per hospital policy by DEANA PERKINS.
--- NOTE | 2022-06-29 05:19 | NUR ---
Student documentation: I have reviewed and agree with all interventions, assessments performed and documented by GREGOIRO STUDENT.
[2022-06-29 06:00] VITALS: BP 103/64
--- NOTE | 2022-06-29 06:03 | NUR ---
Problems reprioritized. Patient report given, questions answered & plan of care reviewed with Mary.
--- NOTE | 2022-06-29 06:29 | NUR ---
Problems reprioritized. Patient report given, questions answered & plan of care reviewed with DAVID DAVIS.
--- NOTE | 2022-06-29 07:01 | NUR ---
Patient in room [facility]. I have received report from Berna DAVIS and had the opportunity to ask questions and assume patient care.
[2022-06-29] MEDS: budesonide 0.5mg/2ml UD nebule IH SCH ×2 (07:16→21:00)
[2022-06-29] MEDS: polyethylene glycol 3350 17gm powd pack PO SCH (08:00)
[2022-06-29] MEDS: amLODIPine 5mg tablet PO SCH (08:00)
[2022-06-29] MEDS: ascorbic acid 500mg tablet PO SCH ×2 (08:56→21:09)
[2022-06-29] MEDS: tamsulosin 0.4mg capsule PO SCH (08:56)
[2022-06-29] MEDS: aspirin 81mg tab.chew PO SCH (08:56)
[2022-06-29] MEDS: cholecalciferol (vitamin D3) 1,000 unit (25mcg) tablet PO SCH (08:56)
[2022-06-29] MEDS: ferrous gluconate 324mg tablet PO SCH ×2 (08:56→21:09)
[2022-06-29] MEDS: FLUoxetine 20mg capsule PO SCH (08:57)
[2022-06-29] MEDS: carVEDilol 12.5mg tablet PO SCH ×2 (08:57→21:09)
[2022-06-29] MEDS: enoxaparin 40mg/0.4ml syringe SUBCUT SCH (08:59)
[2022-06-29] MEDS: traMADol 50MG tablet PO PRN ×2 (09:01→21:11)
[2022-06-29] MEDS: PEG 400/HYPROMELLOSE/GLYCERIN 15ml bottle EACHEYE PRN (09:01)
[2022-06-29 10:00] VITALS: BP 102/66
[2022-06-29 18:00] VITALS: BP 123/68
--- NOTE | 2022-06-29 18:31 | NUR ---
Problems reprioritized. Patient report given, questions answered & plan of care reviewed with Prudence RN.
--- NOTE | 2022-06-29 19:01 | NUR ---
Patient in room [facility]. I have received report from DAVID DAVIS and had the opportunity to ask questions and assume patient care.
[2022-06-29 22:00] VITALS: BP 104/68
[2022-06-30] MEDS: ipratropium/albuterol 3ml nebule NEB SCH ×4 (03:00→21:00)
[2022-06-30 06:00] VITALS: BP 122/70
--- NOTE | 2022-06-30 06:13 | NUR ---
Problems reprioritized. Patient report given, questions answered & plan of care reviewed with CRISSY DAVIS.
--- NOTE | 2022-06-30 07:26 | NUR ---
Patient in room [facility]B. I have received report from RYAN DURAN and had the opportunity to ask questions and assume patient care.
[2022-06-30] MEDS: budesonide 0.5mg/2ml UD nebule IH SCH ×2 (07:49→21:00)
[2022-06-30] MEDS: polyethylene glycol 3350 17gm powd pack PO SCH (08:00)
[2022-06-30] MEDS: amLODIPine 5mg tablet PO SCH (08:00)
[2022-06-30] MEDS: aspirin 81mg tab.chew PO SCH (08:04)
[2022-06-30] MEDS: carVEDilol 12.5mg tablet PO SCH ×2 (08:04→19:27)
[2022-06-30] MEDS: ferrous gluconate 324mg tablet PO SCH ×2 (08:05→19:27)
[2022-06-30] MEDS: cholecalciferol (vitamin D3) 1,000 unit (25mcg) tablet PO SCH (08:07)
[2022-06-30] MEDS: ascorbic acid 500mg tablet PO SCH ×2 (08:08→19:27)
[2022-06-30] MEDS: tamsulosin 0.4mg capsule PO SCH (08:08)
[2022-06-30] MEDS: FLUoxetine 20mg capsule PO SCH (08:08)
[2022-06-30] MEDS: enoxaparin 40mg/0.4ml syringe SUBCUT SCH (08:10)
[2022-06-30 11:00] VITALS: BP 111/65
--- NOTE | 2022-06-30 18:12 | NUR ---
Problems reprioritized. Patient report given, questions answered & plan of care reviewed with RYAN BABCOCK.
[2022-06-30 18:30] VITALS: BP 114/72
[2022-07-01] MEDS: ipratropium/albuterol 3ml nebule NEB SCH ×4 (02:42→20:47)
--- NOTE | 2022-07-01 06:09 | NUR ---
Problems reprioritized. Patient report given, questions answered & plan of care reviewed with Connie. Addendum: 07/01/22 at 0610 by Harlan Chance RN Amended: Links added.
--- NOTE | 2022-07-01 06:15 | NUR ---
Patient in room [facility] 340B. I have received report from RYAN BABCOCK and had the opportunity to ask questions and assume patient care.
[2022-07-01] MEDS: polyethylene glycol 3350 17gm powd pack PO SCH (07:59)
[2022-07-01] MEDS: amLODIPine 5mg tablet PO SCH (08:00)
[2022-07-01] MEDS: carVEDilol 12.5mg tablet PO SCH ×2 (08:00→20:25)
[2022-07-01] MEDS: aspirin 81mg tab.chew PO SCH (08:01)
[2022-07-01] MEDS: ascorbic acid 500mg tablet PO SCH ×2 (08:01→20:26)
[2022-07-01] MEDS: ferrous gluconate 324mg tablet PO SCH ×2 (08:01→20:26)
[2022-07-01] MEDS: cholecalciferol (vitamin D3) 1,000 unit (25mcg) tablet PO SCH (08:01)
[2022-07-01] MEDS: tamsulosin 0.4mg capsule PO SCH (08:01)
[2022-07-01] MEDS: FLUoxetine 20mg capsule PO SCH (08:01)
[2022-07-01 08:03] VITALS: BP 90/46
[2022-07-01] MEDS: enoxaparin 40mg/0.4ml syringe SUBCUT SCH (08:04)
[2022-07-01] MEDS: budesonide 0.5mg/2ml UD nebule IH SCH ×2 (08:45→20:47)
[2022-07-01 11:00] VITALS: BP 117/73
[2022-07-01 18:00] VITALS: BP 121/84
[2022-07-02] MEDS: ipratropium/albuterol 3ml nebule NEB SCH ×3 (03:00→16:28)
[2022-07-02 06:00] VITALS: BP_SYST 103; BP_SYST 155; BP_DIAS 65; BP_DIAS 78
--- NOTE | 2022-07-02 06:22 | NUR ---
Problems reprioritized. Patient report given, questions answered & plan of care reviewed with CHELY BOND.
--- NOTE | 2022-07-02 06:28 | NUR ---
Received report from Connie DAVIS. Went over plan of care, questions/ concerns established. Pt checked on, NAD at this time. Bed in lowest position, call sherwood within reach.
[2022-07-02] MEDS: ferrous gluconate 324mg tablet PO SCH ×2 (07:23→19:57)
[2022-07-02] MEDS: enoxaparin 40mg/0.4ml syringe SUBCUT SCH (07:24)
[2022-07-02] MEDS: cholecalciferol (vitamin D3) 1,000 unit (25mcg) tablet PO SCH (07:25)
[2022-07-02] MEDS: FLUoxetine 20mg capsule PO SCH (07:25)
[2022-07-02] MEDS: ascorbic acid 500mg tablet PO SCH ×2 (07:26→19:57)
[2022-07-02] MEDS: tamsulosin 0.4mg capsule PO SCH (07:26)
[2022-07-02] MEDS: aspirin 81mg tab.chew PO SCH (07:27)
[2022-07-02] MEDS: carVEDilol 12.5mg tablet PO SCH ×2 (07:27→19:57)
[2022-07-02] MEDS: polyethylene glycol 3350 17gm powd pack PO SCH (07:32)
[2022-07-02] MEDS: amLODIPine 5mg tablet PO SCH (07:32)
[2022-07-02] MEDS: budesonide 0.5mg/2ml UD nebule IH SCH ×2 (09:13→21:00)
[2022-07-02 10:00] VITALS: BP 106/62
--- NOTE | 2022-07-02 17:30 | NUR ---
I have reviewed and agree with interventions, assessments, and documentation by Reina Enrique LVN .
[2022-07-02 18:00] VITALS: BP 131/68
--- NOTE | 2022-07-02 18:00 | NUR ---
Reviewed plan of care with CHELY Pang. Went over any issues or concerns on shift today. Patient has been in NAD all day, Patient checked on, no acute distress at this time. Bed in lowest position/ locked, call sherwood w/ in reach.
[2022-07-02 23:00] VITALS: BP 93/50
[2022-07-03 06:00] VITALS: BP 104/54
--- NOTE | 2022-07-03 06:29 | NUR ---
Patient in room [facility]. I have received report from CHELY Pang and had the opportunity to ask questions and assume patient care.
[2022-07-03] MEDS: cholecalciferol (vitamin D3) 1,000 unit (25mcg) tablet PO SCH (07:50)
[2022-07-03] MEDS: ascorbic acid 500mg tablet PO SCH ×2 (07:50→19:59)
[2022-07-03] MEDS: FLUoxetine 20mg capsule PO SCH (07:51)
[2022-07-03] MEDS: carVEDilol 12.5mg tablet PO SCH ×2 (07:51→20:00)
[2022-07-03] MEDS: tamsulosin 0.4mg capsule PO SCH (07:51)
[2022-07-03] MEDS: ferrous gluconate 324mg tablet PO SCH ×2 (07:52→19:59)
[2022-07-03] MEDS: aspirin 81mg tab.chew PO SCH (07:52)
[2022-07-03] MEDS: traMADol 50MG tablet PO PRN ×2 (07:52→20:10)
[2022-07-03] MEDS: amLODIPine 5mg tablet PO SCH (07:53)
[2022-07-03] MEDS: polyethylene glycol 3350 17gm powd pack PO SCH (07:53)
[2022-07-03] MEDS: enoxaparin 40mg/0.4ml syringe SUBCUT SCH (07:54)
[2022-07-03] MEDS: budesonide 0.5mg/2ml UD nebule IH SCH ×2 (10:12→20:18)
[2022-07-03] MEDS: ipratropium/albuterol 3ml nebule NEB SCH ×3 (10:12→20:18)
[2022-07-03 11:00] VITALS: BP 110/68
--- NOTE | 2022-07-03 15:55 | NUR ---
PAGER ID: [phone] MESSAGE: Vi TapiaB. Paperwork here from case management that needs MD signature for insurance for placement. Can I bring to you to be signed? Thanks, Yadira [phone]
--- NOTE | 2022-07-03 17:00 | NUR ---
I have reviewed and agree with all interventions, assessments performed and documented by Yadira Hand LVN.
[2022-07-03 18:00] VITALS: BP 138/71
--- NOTE | 2022-07-03 18:13 | NUR ---
Problems reprioritized. Patient report given, questions answered & plan of care reviewed with RYAN Desai.
[2022-07-03 22:00] VITALS: BP 115/65
[2022-07-04 06:00] VITALS: BP 120/64
--- NOTE | 2022-07-04 06:35 | NUR ---
Patient in room [facility]. I have received report from RYAN Desai and had the opportunity to ask questions and assume patient care.
--- NOTE | 2022-07-04 06:51 | NUR ---
Problems reprioritized. Patient report given, questions answered & plan of care reviewed with REE MO.
[2022-07-04] MEDS: polyethylene glycol 3350 17gm powd pack PO SCH (07:57)
[2022-07-04] MEDS: FLUoxetine 20mg capsule PO SCH (07:59)
[2022-07-04] MEDS: cholecalciferol (vitamin D3) 1,000 unit (25mcg) tablet PO SCH (08:00)
[2022-07-04] MEDS: amLODIPine 5mg tablet PO SCH (08:01)
[2022-07-04] MEDS: aspirin 81mg tab.chew PO SCH (08:01)
[2022-07-04] MEDS: carVEDilol 12.5mg tablet PO SCH ×2 (08:01→19:49)
[2022-07-04] MEDS: ipratropium/albuterol 3ml nebule NEB SCH ×2 (08:02→14:45)
[2022-07-04] MEDS: traMADol 50MG tablet PO PRN (08:02)
[2022-07-04] MEDS: ferrous gluconate 324mg tablet PO SCH ×2 (08:02→19:49)
[2022-07-04] MEDS: ascorbic acid 500mg tablet PO SCH ×2 (08:02→19:49)
[2022-07-04] MEDS: budesonide 0.5mg/2ml UD nebule IH SCH ×2 (08:02→19:49)
[2022-07-04] MEDS: enoxaparin 40mg/0.4ml syringe SUBCUT SCH (08:03)
[2022-07-04] MEDS: tamsulosin 0.4mg capsule PO SCH (08:30)
[2022-07-04 12:00] VITALS: BP 92/46
--- NOTE | 2022-07-04 15:14 | NUR ---
Reassessment: Pt continues eating well, documented with mostly 100% PO intake of meals while receiving yogurt WB meeting estimated nutrient needs. LBM 4/5 per I&O. No nutrition intervention implemented at this time. Will continue to follow. Recommendations: 1. Continue heart healthy/SB6 diet with thin liquids per ST recs 2. Yogurt WB 3. Routine bowel care 4. Weekly scaled weights Addendum: 07/04/22 at [address] Amended: Links added.
[2022-07-04 18:00] VITALS: BP 122/69
[2022-07-04] MEDS: albuterol 2.5 MG/3 ML nebule NEB PRN (19:49)
[2022-07-04 22:00] VITALS: BP 106/60
[2022-07-05 06:00] VITALS: BP 115/64
--- NOTE | 2022-07-05 06:01 | NUR ---
Problems reprioritized. Patient report given, questions answered & plan of care reviewed with Yadira MO.
--- NOTE | 2022-07-05 06:21 | NUR ---
Patient in room [facility]. I have received report from RYAN Desai and had the opportunity to ask questions and assume patient care.
[2022-07-05] MEDS: polyethylene glycol 3350 17gm powd pack PO SCH (08:00)
[2022-07-05] MEDS: cholecalciferol (vitamin D3) 1,000 unit (25mcg) tablet PO SCH (08:03)
[2022-07-05] MEDS: tamsulosin 0.4mg capsule PO SCH (08:04)
[2022-07-05] MEDS: FLUoxetine 20mg capsule PO SCH (08:04)
[2022-07-05] MEDS: aspirin 81mg tab.chew PO SCH (08:04)
[2022-07-05] MEDS: ferrous gluconate 324mg tablet PO SCH ×2 (08:04→20:26)
[2022-07-05] MEDS: traMADol 50MG tablet PO PRN ×2 (08:04→20:25)
[2022-07-05] MEDS: amLODIPine 5mg tablet PO SCH (08:05)
[2022-07-05] MEDS: ascorbic acid 500mg tablet PO SCH ×2 (08:05→20:27)
[2022-07-05] MEDS: carVEDilol 12.5mg tablet PO SCH ×2 (08:05→20:26)
[2022-07-05] MEDS: enoxaparin 40mg/0.4ml syringe SUBCUT SCH (08:06)
[2022-07-05] MEDS: budesonide 0.5mg/2ml UD nebule IH SCH ×2 (08:47→19:56)
[2022-07-05] MEDS: ipratropium/albuterol 3ml nebule NEB SCH ×3 (08:47→19:56)
[2022-07-05 10:00] VITALS: BP 106/67
--- NOTE | 2022-07-05 18:28 | NUR ---
Problems reprioritized. Patient report given, questions answered & plan of care reviewed with RYAN Blandon.
[2022-07-05 18:30] VITALS: BP 130/64
--- NOTE | 2022-07-05 18:30 | NUR ---
Patient in room [facility]. I have received report from CHELY May and had the opportunity to ask questions and assume patient care. Addendum: 07/05/22 at 1902 by Leticia Bateman RN Amended: Links added.
[2022-07-05] MEDS: cyclobenzaprine 10mg tablet PO PRN (20:26)
[2022-07-05 22:30] VITALS: BP 99/51
[2022-07-06 06:00] VITALS: BP 106/61
--- NOTE | 2022-07-06 06:23 | NUR ---
Problems reprioritized. Patient report given, questions answered & plan of care reviewed with CHELY Escobar. Addendum: 07/06/22 at 0624 by Leticia Bateman RN Amended: Links added.
--- NOTE | 2022-07-06 06:39 | NUR ---
Received report from RYAN Blandon. Reviewed plan of care, any concerns, questions addressed. Pt checked on, no acute distress at this time. Bed in lowest position/ locked, call sherwood within reach.
[2022-07-06] MEDS: aspirin 81mg tab.chew PO SCH (07:55)
[2022-07-06] MEDS: enoxaparin 40mg/0.4ml syringe SUBCUT SCH (07:55)
[2022-07-06] MEDS: LIDOcaine 5% patch TP SCH (07:56)
[2022-07-06] MEDS: ascorbic acid 500mg tablet PO SCH ×2 (07:56→19:37)
[2022-07-06] MEDS: FLUoxetine 20mg capsule PO SCH (07:56)
[2022-07-06] MEDS: carVEDilol 12.5mg tablet PO SCH ×2 (07:57→19:37)
[2022-07-06] MEDS: amLODIPine 5mg tablet PO SCH (07:57)
[2022-07-06] MEDS: cholecalciferol (vitamin D3) 1,000 unit (25mcg) tablet PO SCH (07:57)
[2022-07-06] MEDS: ferrous gluconate 324mg tablet PO SCH ×2 (07:57→19:37)
[2022-07-06] MEDS: polyethylene glycol 3350 17gm powd pack PO SCH (08:00)
[2022-07-06] MEDS: tamsulosin 0.4mg capsule PO SCH (08:01)
[2022-07-06] MEDS: ipratropium/albuterol 3ml nebule NEB SCH ×3 (08:51→20:06)
[2022-07-06] MEDS: budesonide 0.5mg/2ml UD nebule IH SCH ×2 (08:51→20:06)
[2022-07-06 10:00] VITALS: BP 116/71
[2022-07-06 18:00] VITALS: BP 127/75
--- NOTE | 2022-07-06 18:18 | NUR ---
Report given to RYAN Blandon. Reviewed plan of care, went over concerns for today. Patient is in no acute distress at this time.
--- NOTE | 2022-07-06 18:20 | NUR ---
Patient in room [facility]. I have received report from CHELY Escobar and had the opportunity to ask questions and assume patient care. Addendum: 07/06/22 at 1850 by Leticia Bateman RN Amended: Links added.
[2022-07-06] MEDS: traMADol 50MG tablet PO PRN (19:40)
[2022-07-06] MEDS: cyclobenzaprine 10mg tablet PO PRN (19:40)
[2022-07-06 22:00] VITALS: BP 92/62
[2022-07-07 06:00] VITALS: BP 101/61
--- NOTE | 2022-07-07 06:10 | NUR ---
Problems reprioritized. Patient report given, questions answered & plan of care reviewed with CHELY Escobar. Addendum: 07/07/22 at 0611 by Leticia Bateman RN Amended: Links added.
--- NOTE | 2022-07-07 06:25 | NUR ---
Received report from RYAN Blandon. Reviewed plan of care, current condition, and reprioritized. Patient checked on, NAD at this time. Bed in lowest condition/ locked, call sherwood within reach.
[2022-07-07] MEDS: ipratropium/albuterol 3ml nebule NEB SCH ×3 (08:27→20:05)
[2022-07-07] MEDS: budesonide 0.5mg/2ml UD nebule IH SCH ×2 (08:27→20:04)
--- NOTE | 2022-07-07 08:27 | NUR ---
pt. refused morning SVN. no SOB observed. SPO2 945 on 2 l/m nasal oxygen
[2022-07-07] MEDS: traMADol 50MG tablet PO PRN ×2 (08:53→17:41)
[2022-07-07] MEDS: polyethylene glycol 3350 17gm powd pack PO SCH (08:53)
[2022-07-07] MEDS: enoxaparin 40mg/0.4ml syringe SUBCUT SCH (08:53)
[2022-07-07] MEDS: aspirin 81mg tab.chew PO SCH (08:54)
[2022-07-07] MEDS: carVEDilol 12.5mg tablet PO SCH ×2 (08:54→20:57)
[2022-07-07] MEDS: FLUoxetine 20mg capsule PO SCH (08:54)
[2022-07-07] MEDS: cholecalciferol (vitamin D3) 1,000 unit (25mcg) tablet PO SCH (08:54)
[2022-07-07] MEDS: amLODIPine 5mg tablet PO SCH (08:55)
[2022-07-07] MEDS: tamsulosin 0.4mg capsule PO SCH (08:55)
[2022-07-07] MEDS: LIDOcaine 5% patch TP SCH (08:57)
[2022-07-07] MEDS: ferrous gluconate 324mg tablet PO SCH ×2 (08:57→20:57)
[2022-07-07] MEDS: ascorbic acid 500mg tablet PO SCH ×2 (08:57→20:57)
[2022-07-07 10:00] VITALS: BP 125/72
[2022-07-07 18:00] VITALS: BP 100/67
--- NOTE | 2022-07-07 18:02 | NUR ---
Review and relayed plan of care (report) to RYAN Kumar. No concerns at this time. Pt has been stable today. Pt checked on, lying in bed at this time. No acute distress at this time. Call sherwood within reach, bed locked/ lowest position.
--- NOTE | 2022-07-07 18:05 | NUR ---
Patient in room [facility]. I have received report from CHELY Huang and had the opportunity to ask questions and assume patient care. Patient laying on bed in now obvious distress, just finished dinner. I will continue to monitor.
[2022-07-07] MEDS: cyclobenzaprine 10mg tablet PO PRN (21:00)
[2022-07-07 22:00] VITALS: BP 120/66
[2022-07-08 06:00] VITALS: BP 120/56
--- NOTE | 2022-07-08 06:10 | NUR ---
Problems reprioritized. Patient report given, questions answered & plan of care reviewed with RYAN Sanchez.
--- NOTE | 2022-07-08 06:35 | NUR ---
Patient in room [facility]. I have received report from Stacy DAVIS and had the opportunity to ask questions and assume patient care.
[2022-07-08 08:00] VITALS: BP 118/74
[2022-07-08] MEDS: enoxaparin 40mg/0.4ml syringe SUBCUT SCH (08:00)
[2022-07-08] MEDS: tamsulosin 0.4mg capsule PO SCH (08:16)
[2022-07-08] MEDS: aspirin 81mg tab.chew PO SCH (08:17)
[2022-07-08] MEDS: polyethylene glycol 3350 17gm powd pack PO SCH (08:17)
[2022-07-08] MEDS: ferrous gluconate 324mg tablet PO SCH ×2 (08:17→20:10)
[2022-07-08] MEDS: FLUoxetine 20mg capsule PO SCH (08:17)
[2022-07-08] MEDS: amLODIPine 5mg tablet PO SCH (08:17)
[2022-07-08] MEDS: cholecalciferol (vitamin D3) 1,000 unit (25mcg) tablet PO SCH (08:17)
[2022-07-08] MEDS: ascorbic acid 500mg tablet PO SCH ×2 (08:17→20:10)
[2022-07-08] MEDS: carVEDilol 12.5mg tablet PO SCH ×2 (08:17→20:10)
[2022-07-08] MEDS: LIDOcaine 5% patch TP SCH (08:18)
--- NOTE | 2022-07-08 08:38 | NUR ---
PAGER ID: [phone] MESSAGE: [id number]- Adi Tapia: Scheduled lovenox, pt ambulatry and hasn't had lab since 06/27. Want me to give or hold? Melvi [phone] Addendum: 07/08/22 at 0912 by Melvi Montes LVN Received telephone order to hold scheduled lovenox this morning, noted and carried out
[2022-07-08] MEDS: budesonide 0.5mg/2ml UD nebule IH SCH ×2 (09:00→20:23)
[2022-07-08] MEDS: ipratropium/albuterol 3ml nebule NEB SCH ×3 (09:00→20:23)
[2022-07-08 10:00] VITALS: BP 125/69
--- NOTE | 2022-07-08 12:40 | NUR ---
pt. refused 0900 SVN stating that he wanted it later. will give 1400 svn at that time
[2022-07-08] MEDS: albuterol 2.5 MG/3 ML nebule NEB PRN (13:27)
--- NOTE | 2022-07-08 18:21 | NUR ---
Problems reprioritized. Patient report given, questions answered & plan of care reviewed with Mary DAVIS.
[2022-07-08 18:30] VITALS: BP 118/69
--- NOTE | 2022-07-08 19:40 | NUR ---
Patient in room [facility]. I have received report from CHELY Ogden and had the opportunity to ask questions and assume patient care. Addendum: 07/08/22 at 1941 by Leticia Bateman RN Amended: Links added.
[2022-07-08] MEDS: traMADol 50MG tablet PO PRN (20:10)
[2022-07-08] MEDS: cyclobenzaprine 10mg tablet PO PRN (20:10)
[2022-07-09 06:00] VITALS: BP 124/67
--- NOTE | 2022-07-09 06:14 | NUR ---
Problems reprioritized. Patient report given, questions answered & plan of care reviewed with CHELY Ogden. Addendum: 07/09/22 at 0615 by Leticia Bateman RN Amended: Links added.
--- NOTE | 2022-07-09 06:28 | NUR ---
Patient in room [facility]. I have received report from Mary DAVIS and had the opportunity to ask questions and assume patient care.
[2022-07-09] MEDS: tamsulosin 0.4mg capsule PO SCH (07:50)
[2022-07-09] MEDS: aspirin 81mg tab.chew PO SCH (07:50)
[2022-07-09] MEDS: ferrous gluconate 324mg tablet PO SCH ×2 (07:50→19:35)
[2022-07-09] MEDS: LIDOcaine 5% patch TP SCH (07:51)
[2022-07-09] MEDS: carVEDilol 12.5mg tablet PO SCH ×2 (07:51→20:23)
[2022-07-09] MEDS: amLODIPine 5mg tablet PO SCH (07:51)
[2022-07-09] MEDS: FLUoxetine 20mg capsule PO SCH (07:51)
[2022-07-09] MEDS: cholecalciferol (vitamin D3) 1,000 unit (25mcg) tablet PO SCH (07:51)
[2022-07-09] MEDS: polyethylene glycol 3350 17gm powd pack PO SCH (07:51)
[2022-07-09] MEDS: ascorbic acid 500mg tablet PO SCH ×2 (07:52→19:35)
[2022-07-09] MEDS: enoxaparin 40mg/0.4ml syringe SUBCUT SCH (08:00)
[2022-07-09] MEDS: ipratropium/albuterol 3ml nebule NEB SCH ×3 (08:03→20:10)
[2022-07-09] MEDS: budesonide 0.5mg/2ml UD nebule IH SCH ×2 (08:03→20:10)
--- NOTE | 2022-07-09 09:53 | NUR ---
Received telephone order from Dr. Harmon to hold schedule lovenox. Labs to be drawn in AM
--- NOTE | 2022-07-09 09:53 | NUR ---
PAGER ID: [phone] MESSAGE: 340B- Adi Tapia: No recent labs, should I give or hold scheduled lovenox? JILL Ogden [id number]
[2022-07-09 10:00] VITALS: BP 112/69
--- NOTE | 2022-07-09 17:00 | NUR ---
I have reviewed and agree with interventions, assessments and documentation by Melvi Knowles LVN.
--- NOTE | 2022-07-09 18:26 | NUR ---
Problems reprioritized. Patient report given, questions answered & plan of care reviewed with Ivis RN.
--- NOTE | 2022-07-09 18:27 | NUR ---
Patient in room [facility]. I have received report from CHELY Ogden and had the opportunity to ask questions and assume patient care. Patient sitting up in bed watching TV, just finished dinner. No concerns, I will continue to monitor.
[2022-07-09 19:48] VITALS: BP 105/63
[2022-07-10 06:00] VITALS: BP 103/62
[2022-07-10 06:13] LABS: ALANINE AMINOTRANSFERASE 17 U/L (12-78); ALBUMIN 2.9 G/DL (3.4-5.0); ALBUMIN/GLOBULIN RATIO 0.8 (1.1-1.5); ALKALINE PHOSPHATASE 81 IU/L (46-116); ANION GAP 4 (8-16); ASPARTATE AMINO TRANSFERASE 15 U/L (10-37); BILIRUBIN,TOTAL 0.3 MG/DL (0.1-1.0); BLOOD UREA NITROGEN 36 MG/DL (7-18); CALCIUM 9.8 MG/DL (8.5-10.1); CHLORIDE 105 MMOL/L (99-107); CREATININE 1.16 MG/DL (0.60-1.10); GLUCOSE 105 MG/DL (70-104); POTASSIUM 4.1 MMOL/L (3.5-5.1); SODIUM 142 MMOL/L (135-145); TOTAL CARBON DIOXIDE 33.4 MMOL/L (24-32); TOTAL PROTEIN 6.6 G/DL (6.4-8.2); eGFR 61 ML/MIN
[2022-07-10 06:17] LABS: BASOPHILS % (AUTO) 0.2 % (0-1); EOSINOPHILS # (AUTO) 0.3 X10'3 (0-0.9); EOSINOPHILS % (AUTO) 2.5 % (0-6); HEMATOCRIT 35.8 % (42.0-52.0); HEMOGLOBIN 11.7 g/dl (14.0-17.9); LYMPHOCYTES # (AUTO) 2.3 X10'3 (1.1-4.8); LYMPHOCYTES % (AUTO) 22.6 % (21-51); MEAN CORPUSCULAR HEMOGLOBIN 30.2 PG (27.0-31.0); MEAN CORPUSCULAR HGB CONC 32.7 g/dL (33.0-36.5); MEAN CORPUSCULAR VOLUME 92.2 FL (78-98); MEAN PLATELET VOLUME 8.4 FL (7.4-10.4); MONOCYTES # (AUTO) 0.6 X10'3 (0-0.9); MONOCYTES % (AUTO) 5.9 % (2-12); NEUTROPHILS # (AUTO) 7.1 X10'3 (1.8-7.7); NEUTROPHILS % (AUTO) 68.8 % (42-75); PLATELET COUNT 249 X10'3 (140-440); RED BLOOD COUNT 3.88 X10'6 (4.70-6.10); WHITE BLOOD COUNT 10.3 X10'3 (4.5-11.0)
--- NOTE | 2022-07-10 06:30 | NUR ---
Patient in room [facility]. I have received report from RYAN Kumar and had the opportunity to ask questions and assume patient care.
[2022-07-10] MEDS: polyethylene glycol 3350 17gm powd pack PO SCH (08:00)
[2022-07-10] MEDS: aspirin 81mg tab.chew PO SCH (08:28)
[2022-07-10] MEDS: tamsulosin 0.4mg capsule PO SCH (08:29)
[2022-07-10] MEDS: ferrous gluconate 324mg tablet PO SCH ×2 (08:29→21:03)
[2022-07-10] MEDS: carVEDilol 12.5mg tablet PO SCH ×2 (08:29→21:03)
[2022-07-10] MEDS: cholecalciferol (vitamin D3) 1,000 unit (25mcg) tablet PO SCH (08:30)
[2022-07-10] MEDS: amLODIPine 5mg tablet PO SCH (08:30)
[2022-07-10] MEDS: FLUoxetine 20mg capsule PO SCH (08:30)
[2022-07-10] MEDS: traMADol 50MG tablet PO PRN (08:30)
[2022-07-10] MEDS: ascorbic acid 500mg tablet PO SCH ×2 (08:30→20:00)
[2022-07-10] MEDS: enoxaparin 40mg/0.4ml syringe SUBCUT SCH (08:31)
[2022-07-10] MEDS: LIDOcaine 5% patch TP SCH (08:34)
[2022-07-10] MEDS: ipratropium/albuterol 3ml nebule NEB SCH ×3 (09:00→20:44)
[2022-07-10] MEDS: budesonide 0.5mg/2ml UD nebule IH SCH ×2 (09:00→20:44)
[2022-07-10 10:00] VITALS: BP 96/65
[2022-07-10 18:40] VITALS: BP 99/57
--- NOTE | 2022-07-10 18:42 | NUR ---
warehouse supervisor 3rd shift aide informed me that day shift reported patient fell between 30 and 60 minutes ago that was not reported to me. Spoke with patient, he reported he fell getting back into bed from chair and did not hit head, reports no injuries or pain. VS- T97.9, HR75, RR16, 952L, 99/57, no pain. Patient able to answer all orientation questions. Patient assisted back to bed and bed alarm turned on. Charge nurse and MD made aware of fall. Addendum: 07/10/22 at 1915 by Yadira MENDEZN Occurrence report completed.
--- NOTE | 2022-07-10 18:42 | NUR ---
PAGER ID: [phone] MESSAGE: [facility] 340B. Patient was found on ground by aide. Pt reports he fell did not hit head. A/Ox4. VS HR75, 952L,,no pain. Thank you, Yadira [phone].
--- NOTE | 2022-07-10 21:12 | NUR ---
Problems reprioritized. Patient report given, questions answered & plan of care reviewed with RYAN Desai.
--- NOTE | 2022-07-10 21:15 | NUR ---
aSSUMED CARE OF PATIENT RESTING COMFORTABLY NO CHANGE IN ASSESSMENT.
[2022-07-11 06:00] VITALS: BP 117/69
--- NOTE | 2022-07-11 06:35 | NUR ---
Received report from Marti Addendum: 07/11/22 at 0637 by Reina Rivers LVN, LVN WEDDING PHOTOGRAPHER, reprioritzed plan of care. Patient checked on, no acute distress at this time. Bed in lowest position/ locked, call sherwood within reach. Bed alarm on.
[2022-07-11] MEDS: polyethylene glycol 3350 17gm powd pack PO SCH (07:52)
[2022-07-11] MEDS: enoxaparin 40mg/0.4ml syringe SUBCUT SCH (07:52)
[2022-07-11] MEDS: aspirin 81mg tab.chew PO SCH (07:53)
[2022-07-11] MEDS: acetaminophen 325mg tablet PO PRN ×3 (07:53→19:48)
[2022-07-11] MEDS: ferrous gluconate 324mg tablet PO SCH ×2 (07:53→19:41)
[2022-07-11] MEDS: tamsulosin 0.4mg capsule PO SCH (07:53)
[2022-07-11] MEDS: ascorbic acid 500mg tablet PO SCH ×2 (07:53→19:41)
[2022-07-11] MEDS: cholecalciferol (vitamin D3) 1,000 unit (25mcg) tablet PO SCH (07:53)
[2022-07-11] MEDS: carVEDilol 12.5mg tablet PO SCH ×2 (07:54→19:41)
[2022-07-11] MEDS: amLODIPine 5mg tablet PO SCH (07:54)
[2022-07-11] MEDS: LIDOcaine 5% patch TP SCH (07:57)
[2022-07-11] MEDS: FLUoxetine 20mg capsule PO SCH (08:07)
[2022-07-11] MEDS: budesonide 0.5mg/2ml UD nebule IH SCH ×2 (08:34→20:47)
[2022-07-11] MEDS: ipratropium/albuterol 3ml nebule NEB SCH ×3 (08:34→20:47)
--- NOTE | 2022-07-11 12:46 | NUR ---
Reassessment: Pt continues eating well, documented with 75-100% PO intake of meals while receiving yogurt WB meeting estimated nutrient needs. LBM 07/09 per EMR, pt receiving routine bowel care with additional PRN bowel care available. D/w dietary to send prune juice with next meal to assist with bowel regularity. Will continue to follow and monitor need for further nutrition intervention. Recommendations: 1. Continue heart healthy/SB6 diet with thin liquids per ST recs 2. Yogurt WB 3. Routine bowel care 4. Weekly scaled weights Addendum: 07/11/22 at [address] Amended: Links added.
[2022-07-11 18:21] VITALS: BP 115/75
--- NOTE | 2022-07-11 18:34 | NUR ---
Relayed plan of care to RYAN Fleming. Reprioritized patients current needs and condition. NAD at this time.
[2022-07-11] MEDS: guaiFENesin/DM 10ml UD oral syrup PO PRN (19:42)
[2022-07-11 23:00] VITALS: BP 122/64
--- NOTE | 2022-07-12 | NUR ---
Pt. is awake alert oriented in mediocre spirits cynical speech and tone. Takes po Meds and nutrition well, voids per urinal and uses BSC as needed. SL intact. Plan for transfer to [facility]/ [facility] when medically cleared.
[2022-07-12 06:00] VITALS: BP 126/76
--- NOTE | 2022-07-12 06:28 | NUR ---
Received report from RYAN Fleming. Reprioritized patient's plan of care, current status. Patient checked on, no acute distress at this time. Bed in lowest position/ locked, call sherwood within reach.
[2022-07-12] MEDS: budesonide 0.5mg/2ml UD nebule IH SCH ×2 (06:56→19:51)
[2022-07-12] MEDS: ipratropium/albuterol 3ml nebule NEB SCH ×3 (06:56→19:51)
--- NOTE | 2022-07-12 07:07 | NUR ---
Pt c/o of having difficulty breathing and he feels he is getting sick. Patient has course crackles/ minor wheezed throughout lobes. RR:21 O2:91% 2L T: 97.9 F. Paged resp: for breathing treatment. Coughing up yellow sputum. Paged the doctor for labs, CXR request. Will CTM
--- NOTE | 2022-07-12 07:31 | NUR ---
Dr. Umana requested a CBC/ CMP, CXR, swallow eval, sputum culture. Orders placed.
[2022-07-12] MEDS: tamsulosin 0.4mg capsule PO SCH (08:00)
[2022-07-12] MEDS: polyethylene glycol 3350 17gm powd pack PO SCH (08:00)
[2022-07-12] MEDS: ascorbic acid 500mg tablet PO SCH ×2 (08:00→21:26)
[2022-07-12 08:27] LABS: BASOPHILS % (AUTO) 0.2 % (0-1); EOSINOPHILS % (AUTO) 0.2 % (0-6); HEMATOCRIT 39.2 % (42.0-52.0); HEMOGLOBIN 12.9 g/dl (14.0-17.9); LYMPHOCYTES % (AUTO) 8.1 % (21-51); MEAN CORPUSCULAR HEMOGLOBIN 30.5 PG (27.0-31.0); MEAN CORPUSCULAR HGB CONC 32.9 g/dL (33.0-36.5); MEAN CORPUSCULAR VOLUME 92.7 FL (78-98); MEAN PLATELET VOLUME 8.3 FL (7.4-10.4); MONOCYTES # (AUTO) 0.7 X10'3 (0-0.9); MONOCYTES % (AUTO) 6.3 % (2-12); NEUTROPHILS # (AUTO) 9.9 X10'3 (1.8-7.7); NEUTROPHILS % (AUTO) 85.2 % (42-75); PLATELET COUNT 264 X10'3 (140-440); RED BLOOD COUNT 4.23 X10'6 (4.70-6.10); RED CELL DISTRIBUTION WIDTH 15.2 % (11.5-14.5); WHITE BLOOD COUNT 11.7 X10'3 (4.5-11.0)
[2022-07-12 08:51] LABS: ALANINE AMINOTRANSFERASE 16 U/L (12-78); ALBUMIN 3.3 G/DL (3.4-5.0); ALBUMIN/GLOBULIN RATIO 0.8 (1.1-1.5); ALKALINE PHOSPHATASE 87 IU/L (46-116); ANION GAP 6 (8-16); ASPARTATE AMINO TRANSFERASE 12 U/L (10-37); BILIRUBIN,TOTAL 0.2 MG/DL (0.1-1.0); BLOOD UREA NITROGEN 30 MG/DL (7-18); BUN/CREATININE RATIO 23.3 (10.0-20.0); CALCIUM 9.4 MG/DL (8.5-10.1); CHLORIDE 102 MMOL/L (99-107); CREATININE 1.29 MG/DL (0.60-1.10); GLUCOSE 115 MG/DL (70-104); POTASSIUM 4.1 MMOL/L (3.5-5.1); SODIUM 140 MMOL/L (135-145); TOTAL CARBON DIOXIDE 32.5 MMOL/L (24-32); TOTAL PROTEIN 7.5 G/DL (6.4-8.2); eGFR 54 ML/MIN
[2022-07-12] MEDS: LIDOcaine 5% patch TP SCH (09:04)
[2022-07-12] MEDS: enoxaparin 40mg/0.4ml syringe SUBCUT SCH (09:05)
[2022-07-12] MEDS: cholecalciferol (vitamin D3) 1,000 unit (25mcg) tablet PO SCH (09:06)
[2022-07-12] MEDS: aspirin 81mg tab.chew PO SCH (09:06)
[2022-07-12] MEDS: amLODIPine 5mg tablet PO SCH (09:06)
[2022-07-12] MEDS: FLUoxetine 20mg capsule PO SCH (09:07)
[2022-07-12] MEDS: ferrous gluconate 324mg tablet PO SCH ×2 (09:08→21:26)
[2022-07-12] MEDS: carVEDilol 12.5mg tablet PO SCH ×2 (09:08→21:27)
[2022-07-12 10:00] VITALS: BP 101/55
--- NOTE | 2022-07-12 11:08 | NUR ---
Dr. Umana reviewed recent results of tests/ studies performed this a.m and states to continue to monitor.
[2022-07-12] MEDS: albuterol 2.5 MG/3 ML nebule NEB PRN ×2 (15:40→22:07)
--- NOTE | 2022-07-12 18:15 | NUR ---
Report relayed to Cortney MO, reviewed plan of care, any changes that occured today. Patient is stable, no acute distress.
--- NOTE | 2022-07-12 21:13 | NUR ---
Sent Page to Faustino: "Haim Pierce in room 340B. He is requesting a breathing TX more often then it is required according to RT (It is currently every 6 hours). Lungs sounds are minimal wheezing, and the Pt appears to be SOB. Cortney, phone number: [phone]"
[2022-07-12 22:39] VITALS: BP 101/66
[2022-07-13] MEDS: albuterol 2.5 MG/3 ML nebule NEB PRN ×2 (03:56→15:16)
--- NOTE | 2022-07-13 04:11 | NUR ---
Sent a Page to Dr. Harmon. "Pt Willie Haim RM 340B: Sputum sample sent out at 0730 07/12. Results came back at 1614 07/12, and was abnormal. We saw that these labs were not reported to Dr. Umana during dayshift. Will await orders. Cortney MO [phone]."
[2022-07-13 05:45] VITALS: BP 116/67
--- NOTE | 2022-07-13 05:59 | NUR ---
LABORATORY ASSISTANT documentation: I have reviewed and agree with all interventions, assessments performed and documented by Cortney MO.
--- NOTE | 2022-07-13 06:45 | NUR ---
Patient in room [facility]. I have received report from Cortney MO and had the opportunity to ask questions and assume patient care. Pt found lying supine in bed, sleeping, eyes closed, no distress noted, breathing even and unlabored on room air.
[2022-07-13] MEDS: budesonide 0.5mg/2ml UD nebule IH SCH ×2 (08:10→19:31)
[2022-07-13] MEDS: ipratropium/albuterol 3ml nebule NEB SCH ×3 (08:10→19:31)
[2022-07-13] MEDS: ascorbic acid 500mg tablet PO SCH ×2 (09:19→21:07)
[2022-07-13] MEDS: ferrous gluconate 324mg tablet PO SCH ×2 (09:19→21:07)
[2022-07-13] MEDS: FLUoxetine 20mg capsule PO SCH (09:19)
[2022-07-13] MEDS: tamsulosin 0.4mg capsule PO SCH (09:19)
[2022-07-13] MEDS: aspirin 81mg tab.chew PO SCH (09:19)
[2022-07-13] MEDS: carVEDilol 12.5mg tablet PO SCH ×2 (09:19→20:00)
[2022-07-13] MEDS: amLODIPine 5mg tablet PO SCH (09:20)
[2022-07-13] MEDS: polyethylene glycol 3350 17gm powd pack PO SCH (09:20)
[2022-07-13] MEDS: cholecalciferol (vitamin D3) 1,000 unit (25mcg) tablet PO SCH (09:20)
[2022-07-13] MEDS: enoxaparin 40mg/0.4ml syringe SUBCUT SCH (09:20)
[2022-07-13] MEDS: LIDOcaine 5% patch TP SCH (09:21)
[2022-07-13 10:00] VITALS: BP 93/60
--- NOTE | 2022-07-13 15:08 | NUR ---
RT paged 340B- Pt audibly wheezing and tachypneic. Pt placed in high fowlers. Pt has Duo neb tx due 1500. Please come and administer. Thanks. Shailesh Stout LVN
--- NOTE | 2022-07-13 15:32 | NUR ---
Paged Page Sent PAGER ID: [phone] MESSAGE: 340B- Willie- Collaborated with RT. Pt has increasing O2 ASB pt was on 3.5LPM and now 5 LPM SPO2 93%. Coarse and Wheezing breath sounds. RT administered DuoNEB and albuterol. Minimal relief. Shailesh Stout GROVE WORKER
[2022-07-13 16:15] LABS: BASOPHILS % (AUTO) 0.3 % (0-1); EOSINOPHILS % (AUTO) 0 % (0-6); HEMATOCRIT 39.8 % (42.0-52.0); HEMOGLOBIN 12.9 g/dl (14.0-17.9); LYMPHOCYTES # (AUTO) 1.3 X10'3 (1.1-4.8); LYMPHOCYTES % (AUTO) 9.2 % (21-51); MEAN CORPUSCULAR HEMOGLOBIN 29.9 PG (27.0-31.0); MEAN CORPUSCULAR HGB CONC 32.5 g/dL (33.0-36.5); MEAN CORPUSCULAR VOLUME 92.3 FL (78-98); MONOCYTES # (AUTO) 0.9 X10'3 (0-0.9); MONOCYTES % (AUTO) 6.2 % (2-12); NEUTROPHILS # (AUTO) 11.9 X10'3 (1.8-7.7); NEUTROPHILS % (AUTO) 84.3 % (42-75); PLATELET COUNT 270 X10'3 (140-440); RED BLOOD COUNT 4.31 X10'6 (4.70-6.10); RED CELL DISTRIBUTION WIDTH 15.3 % (11.5-14.5); WHITE BLOOD COUNT 14.1 X10'3 (4.5-11.0)
--- NOTE | 2022-07-13 16:45 | NUR ---
Pt provided flutter valve. Provided demonstration. Pt returned demonstration. On Site Nurse verbalized importance of washing hands, taking precautions with coughing, and breathing exercises. Pt passive with teaching. Pt will be needing reinforcement.
[2022-07-13 18:00] VITALS: BP 90/59
--- NOTE | 2022-07-13 18:44 | NUR ---
Problems reprioritized. Patient report given, questions answered & plan of care reviewed with Reva DAVIS.
[2022-07-13 19:15] VITALS: BP 97/53
[2022-07-13 21:04] VITALS: BP 92/59
[2022-07-13] MEDS: cyclobenzaprine 10mg tablet PO PRN (21:06)
[2022-07-14] MEDS: albuterol 2.5 MG/3 ML nebule NEB PRN (04:57)
[2022-07-14 06:00] VITALS: BP 101/68
--- NOTE | 2022-07-14 06:13 | NUR ---
Problems reprioritized. Patient report given, questions answered & plan of care reviewed with Reina.
--- NOTE | 2022-07-14 06:20 | NUR ---
Problems reprioritized. Patient report given, questions answered & plan of care reviewed with Reina.
[2022-07-14] MEDS ORDERED: levoFLOXACIN 500mg tablet PO ONE (07:45)
[2022-07-14] MEDS: ipratropium/albuterol 3ml nebule NEB SCH ×5 (07:46→23:11)
[2022-07-14] MEDS: budesonide 0.5mg/2ml UD nebule IH SCH ×2 (07:46→18:46)
[2022-07-14] MEDS: amLODIPine 5mg tablet PO SCH (08:00)
[2022-07-14] MEDS: polyethylene glycol 3350 17gm powd pack PO SCH (08:00)
[2022-07-14] MEDS: enoxaparin 40mg/0.4ml syringe SUBCUT SCH (08:16)
[2022-07-14] MEDS: FLUoxetine 20mg capsule PO SCH (08:18)
[2022-07-14] MEDS: cholecalciferol (vitamin D3) 1,000 unit (25mcg) tablet PO SCH (08:19)
[2022-07-14] MEDS: carVEDilol 12.5mg tablet PO SCH ×2 (08:19→21:37)
[2022-07-14] MEDS: tamsulosin 0.4mg capsule PO SCH (08:23)
[2022-07-14] MEDS: aspirin 81mg tab.chew PO SCH (08:23)
[2022-07-14] MEDS: ferrous gluconate 324mg tablet PO SCH ×2 (08:24→21:37)
[2022-07-14] MEDS: ascorbic acid 500mg tablet PO SCH ×2 (08:25→21:37)
[2022-07-14] MEDS: traMADol 50MG tablet PO PRN (08:25)
[2022-07-14] MEDS: LIDOcaine 5% patch TP SCH (08:26)
[2022-07-14 10:00] VITALS: BP 98/66
--- NOTE | 2022-07-14 10:29 | NUR ---
Spoke w/ Dr. Umana about potentially seeing his blood gas(s) status. He states it was not necessary at this time. He is running low 90's on on 2.5-3 L O2 NC. Will continue to monitor patients status.
[2022-07-14] MEDS ORDERED: levoFLOXACIN 250mg tablet PO SCH (11:00)
[2022-07-14 18:00] VITALS: BP 98/74
--- NOTE | 2022-07-14 18:30 | NUR ---
Patient in room [facility]. I have received report from Reina MO and had the opportunity to ask questions and assume patient care.
--- NOTE | 2022-07-14 18:34 | NUR ---
Problems reprioritized. Patient report given, questions answered & plan of care reviewed with Snehal DAVIS.
[2022-07-14 18:53] LABS: ABG BASE EXCESS -3.5 mmol/L (-2.0-2.0); ABG OXYGEN SATURATION 89.8 % (94-97); ABG PCO2 (T) 36.3 mmHg (35.0-48.0); ABG PO2 (T) 59.8 mmHg (75.0-100.0); FCOHb 0.1 % (0.0-3.9); FMetHb 0.3 % (0.0-1.5); FO2Hb 89.4 % (94-97); TOTAL HEMOGLOBIN 13.2 G/dl (14.0-17.9)
[2022-07-14] MEDS ORDERED: methylPREDNISolone sod succ 125mg/2ml vial IV ONE (19:10)
[2022-07-14] MEDS ORDERED: ipratropium/albuterol 3ml nebule NEB PRN (19:10)
--- NOTE | 2022-07-14 19:15 | NUR ---
Covid swab collected
[2022-07-14] MEDS: methylPREDNISolone sod succ 125mg/2ml vial IV SCH (20:00)
[2022-07-14] MEDS: guaiFENesin/DM 10ml UD oral syrup PO PRN (21:48)
[2022-07-14] MEDS: cyclobenzaprine 10mg tablet PO PRN (21:48)
[2022-07-14 22:00] VITALS: BP 111/75
--- NOTE | 2022-07-15 01:41 | NUR ---
Initial solu-medrol was given at 2136 d/t no IV access. Called pharmacy who advised to skip 2000 solu medrol and give at 0200 as scheduled.
[2022-07-15] MEDS: methylPREDNISolone sod succ 125mg/2ml vial IV SCH ×4 (02:32→20:29)
[2022-07-15 06:00] VITALS: BP 116/66
--- NOTE | 2022-07-15 06:45 | NUR ---
Problems reprioritized. Patient report given, questions answered & plan of care reviewed with Idalmis DAVIS.
[2022-07-15] MEDS: budesonide 0.5mg/2ml UD nebule IH SCH ×2 (07:26→19:58)
[2022-07-15] MEDS: ipratropium/albuterol 3ml nebule NEB SCH ×5 (07:27→23:13)
[2022-07-15] MEDS: polyethylene glycol 3350 17gm powd pack PO SCH (08:00)
[2022-07-15] MEDS: carVEDilol 12.5mg tablet PO SCH ×2 (08:00→20:25)
[2022-07-15] MEDS: amLODIPine 5mg tablet PO SCH (08:00)
[2022-07-15] MEDS: LIDOcaine 5% patch TP SCH (09:30)
[2022-07-15] MEDS: levoFLOXACIN-Levaquin 250mg/D5 50 ML IV SCH (09:30)
[2022-07-15] MEDS: FLUoxetine 20mg capsule PO SCH (09:33)
[2022-07-15] MEDS: enoxaparin 40mg/0.4ml syringe SUBCUT SCH (09:34)
[2022-07-15] MEDS: ferrous gluconate 324mg tablet PO SCH ×2 (09:35→20:26)
[2022-07-15] MEDS: ascorbic acid 500mg tablet PO SCH ×2 (09:35→20:25)
[2022-07-15] MEDS: tamsulosin 0.4mg capsule PO SCH (09:35)
[2022-07-15] MEDS: aspirin 81mg tab.chew PO SCH (09:35)
[2022-07-15] MEDS: cholecalciferol (vitamin D3) 1,000 unit (25mcg) tablet PO SCH (09:35)
[2022-07-15 09:53] LABS: BASOPHILS % (AUTO) 0.1 % (0-1); EOSINOPHILS % (AUTO) 0 % (0-6); HEMATOCRIT 38.4 % (42.0-52.0); HEMOGLOBIN 12.4 g/dl (14.0-17.9); LYMPHOCYTES # (AUTO) 0.5 X10'3 (1.1-4.8); MEAN CORPUSCULAR HEMOGLOBIN 29.9 PG (27.0-31.0); MEAN CORPUSCULAR HGB CONC 32.4 g/dL (33.0-36.5); MEAN CORPUSCULAR VOLUME 92.3 FL (78-98); MONOCYTES # (AUTO) 0.1 X10'3 (0-0.9); MONOCYTES % (AUTO) 1.4 % (2-12); NEUTROPHILS # (AUTO) 5.7 X10'3 (1.8-7.7); NEUTROPHILS % (AUTO) 90.5 % (42-75); PLATELET COUNT 250 X10'3 (140-440); RED BLOOD COUNT 4.16 X10'6 (4.70-6.10); WHITE BLOOD COUNT 6.4 X10'3 (4.5-11.0)
[2022-07-15 10:24] LABS: ALANINE AMINOTRANSFERASE 19 U/L (12-78); ALBUMIN 2.8 G/DL (3.4-5.0); ALBUMIN/GLOBULIN RATIO 0.6 (1.1-1.5); ALKALINE PHOSPHATASE 71 IU/L (46-116); ANION GAP 7 (8-16); ASPARTATE AMINO TRANSFERASE 18 U/L (10-37); BILIRUBIN,TOTAL 0.2 MG/DL (0.1-1.0); BLOOD UREA NITROGEN 37 MG/DL (7-18); BUN/CREATININE RATIO 25.7 (10.0-20.0); CALCIUM 9.7 MG/DL (8.5-10.1); CHLORIDE 101 MMOL/L (99-107); CREATININE 1.44 MG/DL (0.60-1.10); GLUCOSE 202 MG/DL (70-104); POTASSIUM 4.3 MMOL/L (3.5-5.1); SODIUM 137 MMOL/L (135-145); TOTAL CARBON DIOXIDE 28.9 MMOL/L (24-32); TOTAL PROTEIN 7.4 G/DL (6.4-8.2); eGFR 47 ML/MIN
[2022-07-15 11:00] VITALS: BP 102/64
[2022-07-15 18:00] VITALS: BP 116/70
--- NOTE | 2022-07-15 19:00 | NUR ---
Patient in room [facility]. I have received report from RYAN Donaldson and had the opportunity to ask questions and assume patient care. Addendum: 07/15/22 at 2006 by Ana Au RN Amended: Links added.
[2022-07-15] MEDS: traMADol 50MG tablet PO PRN (20:27)
[2022-07-15 22:00] VITALS: BP 121/76
[2022-07-16] MEDS: methylPREDNISolone sod succ 125mg/2ml vial IV SCH ×4 (02:04→20:09)
[2022-07-16 06:00] VITALS: BP 118/70
--- NOTE | 2022-07-16 06:59 | NUR ---
Patient in room [facility]. I have received report from RYAN Perez and had the opportunity to ask questions and assume patient care.
[2022-07-16] MEDS: ipratropium/albuterol 3ml nebule NEB SCH ×5 (07:33→23:35)
[2022-07-16] MEDS: budesonide 0.5mg/2ml UD nebule IH SCH ×2 (07:33→19:51)
[2022-07-16] MEDS: levoFLOXACIN-Levaquin 250mg/D5 50 ML IV SCH (07:54)
[2022-07-16] MEDS: enoxaparin 40mg/0.4ml syringe SUBCUT SCH (07:55)
[2022-07-16] MEDS: LIDOcaine 5% patch TP SCH (07:56)
[2022-07-16] MEDS: polyethylene glycol 3350 17gm powd pack PO SCH (07:56)
[2022-07-16] MEDS: cholecalciferol (vitamin D3) 1,000 unit (25mcg) tablet PO SCH (07:57)
[2022-07-16] MEDS: FLUoxetine 20mg capsule PO SCH (07:57)
[2022-07-16] MEDS: carVEDilol 12.5mg tablet PO SCH ×2 (07:57→20:09)
[2022-07-16] MEDS: tamsulosin 0.4mg capsule PO SCH (07:58)
[2022-07-16] MEDS: ascorbic acid 500mg tablet PO SCH ×2 (07:58→20:11)
[2022-07-16] MEDS: aspirin 81mg tab.chew PO SCH (07:58)
[2022-07-16] MEDS: amLODIPine 5mg tablet PO SCH (07:58)
[2022-07-16] MEDS: ferrous gluconate 324mg tablet PO SCH ×2 (07:58→20:10)
[2022-07-16 08:08] LABS: BASOPHILS % (AUTO) 0.1 % (0-1); EOSINOPHILS % (AUTO) 0 % (0-6); HEMATOCRIT 37.6 % (42.0-52.0); HEMOGLOBIN 12.2 g/dl (14.0-17.9); LYMPHOCYTES # (AUTO) 1.1 X10'3 (1.1-4.8); LYMPHOCYTES % (AUTO) 10.1 % (21-51); MEAN CORPUSCULAR HEMOGLOBIN 29.9 PG (27.0-31.0); MEAN CORPUSCULAR HGB CONC 32.5 g/dL (33.0-36.5); MEAN CORPUSCULAR VOLUME 91.9 FL (78-98); MEAN PLATELET VOLUME 8.4 FL (7.4-10.4); MONOCYTES # (AUTO) 0.4 X10'3 (0-0.9); MONOCYTES % (AUTO) 3.8 % (2-12); NEUTROPHILS # (AUTO) 9.4 X10'3 (1.8-7.7); PLATELET COUNT 303 X10'3 (140-440); RED BLOOD COUNT 4.09 X10'6 (4.70-6.10); RED CELL DISTRIBUTION WIDTH 14.9 % (11.5-14.5); WHITE BLOOD COUNT 10.9 X10'3 (4.5-11.0)
[2022-07-16 08:25] LABS: ALANINE AMINOTRANSFERASE 31 U/L (12-78); ALBUMIN 2.7 G/DL (3.4-5.0); ALBUMIN/GLOBULIN RATIO 0.6 (1.1-1.5); ALKALINE PHOSPHATASE 69 IU/L (46-116); ANION GAP 6 (8-16); ASPARTATE AMINO TRANSFERASE 26 U/L (10-37); BILIRUBIN,TOTAL 0.2 MG/DL (0.1-1.0); BLOOD UREA NITROGEN 45 MG/DL (7-18); BUN/CREATININE RATIO 30.8 (10.0-20.0); CALCIUM 9.8 MG/DL (8.5-10.1); CHLORIDE 103 MMOL/L (99-107); CREATININE 1.46 MG/DL (0.60-1.10); GLUCOSE 151 MG/DL (70-104); POTASSIUM 4.5 MMOL/L (3.5-5.1); SODIUM 141 MMOL/L (135-145); TOTAL CARBON DIOXIDE 32.5 MMOL/L (24-32); TOTAL PROTEIN 7.1 G/DL (6.4-8.2); eGFR 47 ML/MIN
--- NOTE | 2022-07-16 10:44 | NUR ---
pt. on miralax Addendum: 07/16/22 at 1047 by Dionne Chavarria RN Amended: Links added.
[2022-07-16 11:00] VITALS: BP 118/67
[2022-07-16] MEDS: guaiFENesin/DM 10ml UD oral syrup PO PRN (14:09)
--- NOTE | 2022-07-16 18:45 | NUR ---
Problems reprioritized. Patient report given, questions answered & plan of care reviewed with RYAN Frances.
--- NOTE | 2022-07-16 19:30 | NUR ---
Patient in room [facility]. I have received report from RYAN Frances and had the opportunity to ask questions and assume patient care. Patient is laying on bed listening to his phone, no concers at this time. I will continue to monitor.
[2022-07-16] MEDS: traMADol 50MG tablet PO PRN (20:12)
[2022-07-16 21:30] VITALS: BP 113/77
[2022-07-16 23:18] VITALS: BP 116/78
[2022-07-17] MEDS: methylPREDNISolone sod succ 125mg/2ml vial IV SCH (03:08)
--- NOTE | 2022-07-17 05:59 | NUR ---
Problems reprioritized. Patient report given, questions answered & plan of care reviewed with RYAN Dupont
[2022-07-17 06:00] VITALS: BP 126/66
--- NOTE | 2022-07-17 06:18 | NUR ---
Patient in room [facility]. I have received report from RYAN Kumar and had the opportunity to ask questions and assume patient care.
[2022-07-17 06:56] LABS: BASOPHILS % (AUTO) 0.1 % (0-1); EOSINOPHILS % (AUTO) 0 % (0-6); HEMATOCRIT 38.5 % (42.0-52.0); HEMOGLOBIN 12.5 g/dl (14.0-17.9); LYMPHOCYTES # (AUTO) 1.4 X10'3 (1.1-4.8); LYMPHOCYTES % (AUTO) 9.1 % (21-51); MEAN CORPUSCULAR HEMOGLOBIN 29.8 PG (27.0-31.0); MEAN CORPUSCULAR HGB CONC 32.4 g/dL (33.0-36.5); MEAN CORPUSCULAR VOLUME 91.9 FL (78-98); MEAN PLATELET VOLUME 8.3 FL (7.4-10.4); MONOCYTES # (AUTO) 0.6 X10'3 (0-0.9); MONOCYTES % (AUTO) 3.8 % (2-12); NEUTROPHILS # (AUTO) 13.6 X10'3 (1.8-7.7); PLATELET COUNT 340 X10'3 (140-440); RED BLOOD COUNT 4.19 X10'6 (4.70-6.10); RED CELL DISTRIBUTION WIDTH 14.4 % (11.5-14.5); WHITE BLOOD COUNT 15.7 X10'3 (4.5-11.0)
[2022-07-17 07:17] LABS: ALANINE AMINOTRANSFERASE 54 U/L (12-78); ALBUMIN 2.7 G/DL (3.4-5.0); ALBUMIN/GLOBULIN RATIO 0.6 (1.1-1.5); ALKALINE PHOSPHATASE 84 IU/L (46-116); ANION GAP 3 (8-16); ASPARTATE AMINO TRANSFERASE 34 U/L (10-37); BILIRUBIN,TOTAL 0.2 MG/DL (0.1-1.0); BLOOD UREA NITROGEN 54 MG/DL (7-18); BUN/CREATININE RATIO 38.8 (10.0-20.0); CALCIUM 10.1 MG/DL (8.5-10.1); CHLORIDE 104 MMOL/L (99-107); CREATININE 1.39 MG/DL (0.60-1.10); GLUCOSE 152 MG/DL (70-104); POTASSIUM 4.7 MMOL/L (3.5-5.1); SODIUM 141 MMOL/L (135-145); TOTAL CARBON DIOXIDE 33.7 MMOL/L (24-32); eGFR 49 ML/MIN
[2022-07-17] MEDS: budesonide 0.5mg/2ml UD nebule IH SCH ×2 (07:20→20:21)
[2022-07-17] MEDS: ipratropium/albuterol 3ml nebule NEB SCH ×5 (07:20→23:37)
[2022-07-17] MEDS: FLUoxetine 20mg capsule PO SCH (08:35)
[2022-07-17] MEDS: levoFLOXACIN-Levaquin 250mg/D5 50 ML IV SCH (08:35)
[2022-07-17] MEDS: polyethylene glycol 3350 17gm powd pack PO SCH (08:35)
[2022-07-17] MEDS: LIDOcaine 5% patch TP SCH (08:35)
[2022-07-17] MEDS: cholecalciferol (vitamin D3) 1,000 unit (25mcg) tablet PO SCH (08:36)
[2022-07-17] MEDS: ascorbic acid 500mg tablet PO SCH ×2 (08:36→19:36)
[2022-07-17] MEDS: carVEDilol 12.5mg tablet PO SCH ×2 (08:36→19:35)
[2022-07-17] MEDS: aspirin 81mg tab.chew PO SCH (08:36)
[2022-07-17] MEDS: amLODIPine 5mg tablet PO SCH (08:36)
[2022-07-17] MEDS: tamsulosin 0.4mg capsule PO SCH (08:36)
[2022-07-17] MEDS: ferrous gluconate 324mg tablet PO SCH ×2 (08:36→19:36)
[2022-07-17] MEDS: enoxaparin 40mg/0.4ml syringe SUBCUT SCH (08:37)
[2022-07-17 10:00] VITALS: BP 126/66
[2022-07-17 11:53] VITALS: BP 101/61
[2022-07-17] MEDS: guaiFENesin/DM 10ml UD oral syrup PO PRN (14:27)
[2022-07-17 18:00] VITALS: BP 110/65
--- NOTE | 2022-07-17 18:47 | NUR ---
Problems reprioritized. Patient report given, questions answered & plan of care reviewed with RYAN GUTIERREZ.
[2022-07-17] MEDS: traMADol 50MG tablet PO PRN (19:37)
--- NOTE | 2022-07-17 20:20 | NUR ---
Student Medication Administration: For this medication-pass time frame, all medication were reviewed, dispensed, administered and documented per hospital policy by Keisha Avery [facility].
[2022-07-17 22:00] VITALS: BP 108/62
--- NOTE | 2022-07-17 22:39 | NUR ---
Student documentation: I have reviewed interventions, assessments performed and documented by Keisha AUGUSTIN [facility].
[2022-07-18 06:19] VITALS: BP 116/75
--- NOTE | 2022-07-18 06:30 | NUR ---
Patient in room [facility]. I have received report from RYAN Desai and had the opportunity to ask questions and assume patient care.
[2022-07-18 06:37] LABS: BASOPHILS # (AUTO) 0.1 X10'3 (0-0.2); BASOPHILS % (AUTO) 0.3 % (0-1); EOSINOPHILS % (AUTO) 0 % (0-6); HEMATOCRIT 37.9 % (42.0-52.0); HEMOGLOBIN 12.2 g/dl (14.0-17.9); LYMPHOCYTES % (AUTO) 11.1 % (21-51); MEAN CORPUSCULAR HEMOGLOBIN 29.6 PG (27.0-31.0); MEAN CORPUSCULAR HGB CONC 32.3 g/dL (33.0-36.5); MEAN CORPUSCULAR VOLUME 91.6 FL (78-98); MONOCYTES # (AUTO) 1.1 X10'3 (0-0.9); MONOCYTES % (AUTO) 5.8 % (2-12); NEUTROPHILS # (AUTO) 15.1 X10'3 (1.8-7.7); NEUTROPHILS % (AUTO) 82.8 % (42-75); PLATELET COUNT 356 X10'3 (140-440); RED BLOOD COUNT 4.14 X10'6 (4.70-6.10); RED CELL DISTRIBUTION WIDTH 14.5 % (11.5-14.5); WHITE BLOOD COUNT 18.2 X10'3 (4.5-11.0)
[2022-07-18 07:05] LABS: ALANINE AMINOTRANSFERASE 69 U/L (12-78); ALBUMIN 2.6 G/DL (3.4-5.0); ALBUMIN/GLOBULIN RATIO 0.7 (1.1-1.5); ALKALINE PHOSPHATASE 72 IU/L (46-116); ANION GAP 4 (8-16); ASPARTATE AMINO TRANSFERASE 29 U/L (10-37); BILIRUBIN,TOTAL 0.1 MG/DL (0.1-1.0); BLOOD UREA NITROGEN 48 MG/DL (7-18); BUN/CREATININE RATIO 40.7 (10.0-20.0); CALCIUM 9.7 MG/DL (8.5-10.1); CHLORIDE 104 MMOL/L (99-107); CREATININE 1.18 MG/DL (0.60-1.10); GLUCOSE 124 MG/DL (70-104); POTASSIUM 4.5 MMOL/L (3.5-5.1); SODIUM 141 MMOL/L (135-145); TOTAL CARBON DIOXIDE 33.3 MMOL/L (24-32); TOTAL PROTEIN 6.6 G/DL (6.4-8.2); eGFR 60 ML/MIN
[2022-07-18] MEDS: budesonide 0.5mg/2ml UD nebule IH SCH ×2 (07:22→19:26)
[2022-07-18] MEDS: ipratropium/albuterol 3ml nebule NEB SCH ×5 (07:22→23:10)
[2022-07-18] MEDS: tamsulosin 0.4mg capsule PO SCH (07:54)
[2022-07-18] MEDS: carVEDilol 12.5mg tablet PO SCH ×2 (07:55→20:13)
[2022-07-18] MEDS: amLODIPine 5mg tablet PO SCH (07:56)
[2022-07-18] MEDS: FLUoxetine 20mg capsule PO SCH (07:56)
[2022-07-18] MEDS: ferrous gluconate 324mg tablet PO SCH ×2 (07:56→20:13)
[2022-07-18] MEDS: traMADol 50MG tablet PO PRN (07:56)
[2022-07-18] MEDS: enoxaparin 40mg/0.4ml syringe SUBCUT SCH (07:57)
[2022-07-18] MEDS: aspirin 81mg tab.chew PO SCH (07:57)
[2022-07-18] MEDS: ascorbic acid 500mg tablet PO SCH ×2 (07:57→20:13)
[2022-07-18] MEDS: cholecalciferol (vitamin D3) 1,000 unit (25mcg) tablet PO SCH (07:57)
[2022-07-18] MEDS: polyethylene glycol 3350 17gm powd pack PO SCH (08:00)
[2022-07-18] MEDS ORDERED: predniSONE 20 mg tablet PO SCH (08:00)
[2022-07-18] MEDS: LIDOcaine 5% patch TP SCH (08:00)
[2022-07-18] MEDS: levoFLOXACIN-Levaquin 250mg/D5 50 ML IV SCH (08:27)
--- NOTE | 2022-07-18 09:50 | NUR ---
Reassessment: Pt s/p BSS 07/[address] recs SB6 food with nectar thick liquids. ST recs continuing this texture at f/u BSS 07/15. Pt continues eating well, documented with mostly 75-100% PO intake meeting estimated nutrient needs. LBM 07/16. No nutrition intervention implemented at this time. Will continue to follow. Recommendations: 1. Continue SB6 diet with NTL per [facility]; discontinue heart healthy restriction 2. Yogurt WB 3. Routine bowel care 4. Weekly scaled weights Addendum: 07/18/22 at [address] Amended: Links added.
[2022-07-18 11:43] VITALS: BP 115/63
--- NOTE | 2022-07-18 12:56 | NUR ---
Patient ex-caregiver, now "friend", Asia brought in patients Social Security information. She let me know she would tell step daughter Eli that they are here. Case management notified.
--- NOTE | 2022-07-18 15:57 | NUR ---
CRYSTAL CUTTER documentation: I have reviewed and agree with all interventions, assessments performed and documented by Yadira Lees LVN.
[2022-07-18 18:00] VITALS: BP 136/73
--- NOTE | 2022-07-18 20:00 | NUR ---
anodiser documentation: I have reviewed and agree with all interventions, assessments performed and documented by Yadira Lees lvn.
[2022-07-18] MEDS: guaiFENesin/DM 10ml UD oral syrup PO PRN (20:13)
[2022-07-18 22:00] VITALS: BP 122/70
[2022-07-19 05:30] VITALS: BP 105/75
--- NOTE | 2022-07-19 06:50 | NUR ---
Patient in room [facility]. I have received report from Giselle DAVIS & CHELY May and had the opportunity to ask questions and assume patient care.
[2022-07-19] MEDS: carVEDilol 12.5mg tablet PO SCH ×2 (08:00→20:13)
[2022-07-19] MEDS: amLODIPine 5mg tablet PO SCH (08:00)
[2022-07-19] MEDS: ipratropium/albuterol 3ml nebule NEB SCH ×5 (08:32→23:00)
[2022-07-19] MEDS: budesonide 0.5mg/2ml UD nebule IH SCH ×2 (08:33→19:55)
[2022-07-19 08:45] LABS: BASOPHILS % (AUTO) 0.1 % (0-1); EOSINOPHILS % (AUTO) 0 % (0-6); HEMATOCRIT 39.9 % (42.0-52.0); LYMPHOCYTES # (AUTO) 2.5 X10'3 (1.1-4.8); LYMPHOCYTES % (AUTO) 18.7 % (21-51); MEAN CORPUSCULAR HEMOGLOBIN 29.8 PG (27.0-31.0); MEAN CORPUSCULAR HGB CONC 32.6 g/dL (33.0-36.5); MEAN CORPUSCULAR VOLUME 91.4 FL (78-98); MEAN PLATELET VOLUME 8.4 FL (7.4-10.4); MONOCYTES # (AUTO) 1.1 X10'3 (0-0.9); NEUTROPHILS # (AUTO) 9.9 X10'3 (1.8-7.7); NEUTROPHILS % (AUTO) 73.2 % (42-75); PLATELET COUNT 365 X10'3 (140-440); RED BLOOD COUNT 4.36 X10'6 (4.70-6.10); RED CELL DISTRIBUTION WIDTH 14.7 % (11.5-14.5); WHITE BLOOD COUNT 13.5 X10'3 (4.5-11.0)
[2022-07-19 09:09] LABS: ALANINE AMINOTRANSFERASE 51 U/L (12-78); ALBUMIN 2.6 G/DL (3.4-5.0); ALBUMIN/GLOBULIN RATIO 0.6 (1.1-1.5); ALKALINE PHOSPHATASE 72 IU/L (46-116); ANION GAP 2 (8-16); ASPARTATE AMINO TRANSFERASE 19 U/L (10-37); BILIRUBIN,TOTAL 0.2 MG/DL (0.1-1.0); BLOOD UREA NITROGEN 39 MG/DL (7-18); BUN/CREATININE RATIO 33.6 (10.0-20.0); CALCIUM 9.8 MG/DL (8.5-10.1); CHLORIDE 103 MMOL/L (99-107); CREATININE 1.16 MG/DL (0.60-1.10); GLUCOSE 97 MG/DL (70-104); POTASSIUM 4.5 MMOL/L (3.5-5.1); SODIUM 143 MMOL/L (135-145); TOTAL CARBON DIOXIDE 37.7 MMOL/L (24-32); TOTAL PROTEIN 6.7 G/DL (6.4-8.2); eGFR 61 ML/MIN
[2022-07-19 09:23] LABS: PLATELET ESTIMATE NORMAL; TOTAL CELLS COUNTED 100
[2022-07-19] MEDS: LIDOcaine 5% patch TP SCH (09:48)
[2022-07-19] MEDS: levoFLOXACIN-Levaquin 250mg/D5 50 ML IV SCH (09:48)
[2022-07-19 09:49] LABS: HEMATOCRIT 40.4 % (42.0-52.0); HEMOGLOBIN 13.2 g/dl (14.0-17.9); MEAN CORPUSCULAR HEMOGLOBIN 29.6 PG (27.0-31.0); MEAN CORPUSCULAR HGB CONC 32.5 g/dL (33.0-36.5); MEAN PLATELET VOLUME 8.2 FL (7.4-10.4); PLATELET COUNT 369 X10'3 (140-440); RED BLOOD COUNT 4.44 X10'6 (4.70-6.10); RED CELL DISTRIBUTION WIDTH 14.5 % (11.5-14.5)
[2022-07-19] MEDS: ascorbic acid 500mg tablet PO SCH ×2 (09:58→20:13)
[2022-07-19] MEDS: FLUoxetine 20mg capsule PO SCH (09:58)
[2022-07-19] MEDS: predniSONE 20 mg tablet PO SCH (09:58)
[2022-07-19] MEDS: ferrous gluconate 324mg tablet PO SCH ×2 (09:58→20:13)
[2022-07-19] MEDS: polyethylene glycol 3350 17gm powd pack PO SCH (09:58)
[2022-07-19] MEDS: aspirin 81mg tab.chew PO SCH (09:58)
[2022-07-19] MEDS: tamsulosin 0.4mg capsule PO SCH (09:58)
[2022-07-19] MEDS: cholecalciferol (vitamin D3) 1,000 unit (25mcg) tablet PO SCH (09:58)
[2022-07-19 10:00] VITALS: BP 124/80
[2022-07-19] MEDS: enoxaparin 40mg/0.4ml syringe SUBCUT SCH (13:49)
[2022-07-19 18:00] VITALS: BP 129/77
--- NOTE | 2022-07-19 18:30 | NUR ---
Problems reprioritized. Patient report given, questions answered & plan of care reviewed with RYAN Avina.
[2022-07-19 22:00] VITALS: BP 134/74
[2022-07-19] MEDS: traMADol 50MG tablet PO PRN (22:27)
[2022-07-20 06:00] VITALS: BP 125/66
[2022-07-20] MEDS: budesonide 0.5mg/2ml UD nebule IH SCH ×2 (07:24→19:13)
[2022-07-20] MEDS: ipratropium/albuterol 3ml nebule NEB SCH ×5 (07:24→23:21)
[2022-07-20] MEDS: tamsulosin 0.4mg capsule PO SCH (07:47)
[2022-07-20] MEDS: ascorbic acid 500mg tablet PO SCH ×2 (07:48→20:07)
[2022-07-20] MEDS: predniSONE 20 mg tablet PO SCH (07:48)
[2022-07-20] MEDS: FLUoxetine 20mg capsule PO SCH (07:48)
[2022-07-20] MEDS: ferrous gluconate 324mg tablet PO SCH ×2 (07:48→20:07)
[2022-07-20] MEDS: aspirin 81mg tab.chew PO SCH (07:49)
[2022-07-20] MEDS: carVEDilol 12.5mg tablet PO SCH ×2 (07:49→20:07)
[2022-07-20] MEDS: cholecalciferol (vitamin D3) 1,000 unit (25mcg) tablet PO SCH (07:49)
[2022-07-20] MEDS: amLODIPine 5mg tablet PO SCH (07:49)
[2022-07-20] MEDS: polyethylene glycol 3350 17gm powd pack PO SCH (07:50)
[2022-07-20] MEDS: levoFLOXACIN-Levaquin 250mg/D5 50 ML IV SCH (07:50)
[2022-07-20] MEDS: enoxaparin 40mg/0.4ml syringe SUBCUT SCH (07:50)
[2022-07-20] MEDS: LIDOcaine 5% patch TP SCH (08:00)
[2022-07-20 10:33] LABS: BASOPHILS # (AUTO) 0.1 X10'3 (0-0.2); BASOPHILS % (AUTO) 0.6 % (0-1); EOSINOPHILS % (AUTO) 0.4 % (0-6); HEMATOCRIT 38.7 % (42.0-52.0); HEMOGLOBIN 12.6 g/dl (14.0-17.9); LYMPHOCYTES # (AUTO) 2.3 X10'3 (1.1-4.8); LYMPHOCYTES % (AUTO) 21.6 % (21-51); MEAN CORPUSCULAR HEMOGLOBIN 29.6 PG (27.0-31.0); MEAN CORPUSCULAR HGB CONC 32.5 g/dL (33.0-36.5); MEAN CORPUSCULAR VOLUME 91.1 FL (78-98); MEAN PLATELET VOLUME 8.2 FL (7.4-10.4); MONOCYTES # (AUTO) 0.5 X10'3 (0-0.9); MONOCYTES % (AUTO) 5.1 % (2-12); NEUTROPHILS # (AUTO) 7.6 X10'3 (1.8-7.7); NEUTROPHILS % (AUTO) 72.3 % (42-75); PLATELET COUNT 363 X10'3 (140-440); RED BLOOD COUNT 4.25 X10'6 (4.70-6.10); RED CELL DISTRIBUTION WIDTH 14.8 % (11.5-14.5); WHITE BLOOD COUNT 10.5 X10'3 (4.5-11.0)
[2022-07-20 10:46] LABS: ALANINE AMINOTRANSFERASE 38 U/L (12-78); ALBUMIN 2.4 G/DL (3.4-5.0); ALBUMIN/GLOBULIN RATIO 0.6 (1.1-1.5); ALKALINE PHOSPHATASE 64 IU/L (46-116); ANION GAP 2 (8-16); ASPARTATE AMINO TRANSFERASE 17 U/L (10-37); BILIRUBIN,TOTAL 0.1 MG/DL (0.1-1.0); BLOOD UREA NITROGEN 37 MG/DL (7-18); BUN/CREATININE RATIO 30.8 (10.0-20.0); CALCIUM 9.7 MG/DL (8.5-10.1); CHLORIDE 102 MMOL/L (99-107); GLUCOSE 166 MG/DL (70-104); POTASSIUM 4.3 MMOL/L (3.5-5.1); SODIUM 143 MMOL/L (135-145); TOTAL CARBON DIOXIDE 39.3 MMOL/L (24-32); TOTAL PROTEIN 6.1 G/DL (6.4-8.2); eGFR 58 ML/MIN
[2022-07-20 11:00] VITALS: BP 111/69
[2022-07-20 18:00] VITALS: BP 112/54
--- NOTE | 2022-07-20 18:36 | NUR ---
Patient resting comfortably in bed, all needs met at this time. Patient care provided with primary nurse, Myra DAVIS. Problems reprioritized. Patient report given, questions answered and plan of care reviewed with RYAN Avina.
[2022-07-20] MEDS: cyclobenzaprine 10mg tablet PO PRN (21:19)
[2022-07-20] MEDS: traMADol 50MG tablet PO PRN (21:19)
[2022-07-20 22:00] VITALS: BP 108/58
[2022-07-21] MEDS: ipratropium/albuterol 3ml nebule NEB SCH ×5 (07:14→23:00)
[2022-07-21] MEDS: budesonide 0.5mg/2ml UD nebule IH SCH ×2 (07:14→19:14)
[2022-07-21 07:53] VITALS: BP 120/58
[2022-07-21] MEDS: carVEDilol 12.5mg tablet PO SCH ×2 (08:06→19:18)
[2022-07-21] MEDS: FLUoxetine 20mg capsule PO SCH (08:06)
[2022-07-21] MEDS: ferrous gluconate 324mg tablet PO SCH ×2 (08:06→19:15)
[2022-07-21] MEDS: cholecalciferol (vitamin D3) 1,000 unit (25mcg) tablet PO SCH (08:06)
[2022-07-21] MEDS: amLODIPine 5mg tablet PO SCH (08:07)
[2022-07-21] MEDS: polyethylene glycol 3350 17gm powd pack PO SCH (08:07)
[2022-07-21] MEDS: aspirin 81mg tab.chew PO SCH (08:07)
[2022-07-21] MEDS: enoxaparin 40mg/0.4ml syringe SUBCUT SCH (08:08)
[2022-07-21] MEDS: ascorbic acid 500mg tablet PO SCH ×2 (08:09→19:15)
[2022-07-21] MEDS: LIDOcaine 5% patch TP SCH (08:09)
[2022-07-21] MEDS: predniSONE 20 mg tablet PO SCH (08:20)
[2022-07-21] MEDS: tamsulosin 0.4mg capsule PO SCH (08:20)
[2022-07-21 10:00] VITALS: BP 104/67
--- NOTE | 2022-07-21 17:38 | NUR ---
Student documentation: I have reviewed all interventions, assessments performed and documented by Krystle ORTIZ
[2022-07-21 18:00] VITALS: BP 112/68
--- NOTE | 2022-07-21 19:08 | NUR ---
Problems reprioritized. Patient report given, questions answered & plan of care reviewed with RYAN Acosta. Care done with RYAN Augustin & Myra DAVIS.
[2022-07-21 22:58] VITALS: BP 106/67
--- NOTE | 2022-07-22 | NUR ---
Patient in room [facility]. I have received report from MIREILLE and had the opportunity to ask questions and assume patient care.
[2022-07-22 05:53] LABS: BASOPHILS % (AUTO) 0.2 % (0-1); EOSINOPHILS # (AUTO) 0.1 X10'3 (0-0.9); EOSINOPHILS % (AUTO) 0.7 % (0-6); HEMATOCRIT 39.2 % (42.0-52.0); HEMOGLOBIN 12.9 g/dl (14.0-17.9); LYMPHOCYTES % (AUTO) 28.7 % (21-51); MEAN CORPUSCULAR HEMOGLOBIN 29.9 PG (27.0-31.0); MEAN CORPUSCULAR HGB CONC 32.9 g/dL (33.0-36.5); MEAN CORPUSCULAR VOLUME 90.9 FL (78-98); MEAN PLATELET VOLUME 8.3 FL (7.4-10.4); MONOCYTES # (AUTO) 0.7 X10'3 (0-0.9); MONOCYTES % (AUTO) 5.2 % (2-12); NEUTROPHILS % (AUTO) 65.2 % (42-75); PLATELET COUNT 436 X10'3 (140-440); RED BLOOD COUNT 4.32 X10'6 (4.70-6.10); RED CELL DISTRIBUTION WIDTH 14.8 % (11.5-14.5); WHITE BLOOD COUNT 13.9 X10'3 (4.5-11.0)
[2022-07-22 05:58] LABS: ALANINE AMINOTRANSFERASE 27 U/L (12-78); ALBUMIN 2.4 G/DL (3.4-5.0); ALBUMIN/GLOBULIN RATIO 0.6 (1.1-1.5); ALKALINE PHOSPHATASE 69 IU/L (46-116); ANION GAP 0 (8-16); ASPARTATE AMINO TRANSFERASE 16 U/L (10-37); BILIRUBIN,TOTAL 0.2 MG/DL (0.1-1.0); BLOOD UREA NITROGEN 43 MG/DL (7-18); BUN/CREATININE RATIO 35.5 (10.0-20.0); CALCIUM 9.8 MG/DL (8.5-10.1); CHLORIDE 102 MMOL/L (99-107); CREATININE 1.21 MG/DL (0.60-1.10); GLUCOSE 102 MG/DL (70-104); POTASSIUM 4.6 MMOL/L (3.5-5.1); SODIUM 142 MMOL/L (135-145); TOTAL CARBON DIOXIDE 39.9 MMOL/L (24-32); TOTAL PROTEIN 6.1 G/DL (6.4-8.2); eGFR 58 ML/MIN
[2022-07-22 06:00] VITALS: BP 106/67
--- NOTE | 2022-07-22 06:00 | NUR ---
Received report from RYAN Acosta. Went over patients plan of care. Patient checked on, no acute distress at this time. Bed in lowest position, call sherwood within reach, O2 intact.
--- NOTE | 2022-07-22 06:13 | NUR ---
Problems reprioritized. Patient report given, questions answered & plan of care reviewed with VARUN.
[2022-07-22] MEDS: predniSONE 20 mg tablet PO SCH (08:00)
[2022-07-22] MEDS: LIDOcaine 5% patch TP SCH (08:19)
[2022-07-22] MEDS: aspirin 81mg tab.chew PO SCH (08:20)
[2022-07-22] MEDS: FLUoxetine 20mg capsule PO SCH (08:20)
[2022-07-22] MEDS: enoxaparin 40mg/0.4ml syringe SUBCUT SCH (08:20)
[2022-07-22] MEDS: carVEDilol 12.5mg tablet PO SCH ×2 (08:20→21:57)
[2022-07-22] MEDS: ferrous gluconate 324mg tablet PO SCH ×2 (08:20→21:57)
[2022-07-22] MEDS: acetaminophen 325mg tablet PO PRN (08:21)
[2022-07-22] MEDS: cholecalciferol (vitamin D3) 1,000 unit (25mcg) tablet PO SCH (08:21)
[2022-07-22] MEDS: ascorbic acid 500mg tablet PO SCH ×2 (08:22→21:57)
[2022-07-22] MEDS: tamsulosin 0.4mg capsule PO SCH (08:22)
[2022-07-22] MEDS: amLODIPine 5mg tablet PO SCH (08:22)
[2022-07-22] MEDS: polyethylene glycol 3350 17gm powd pack PO SCH (08:23)
[2022-07-22] MEDS: budesonide 0.5mg/2ml UD nebule IH SCH ×2 (09:32→19:08)
[2022-07-22] MEDS: ipratropium/albuterol 3ml nebule NEB SCH ×5 (09:32→23:00)
[2022-07-22 10:00] VITALS: BP 103/57
--- NOTE | 2022-07-22 10:00 | NUR ---
Relayed to the Doctor of this patient the WBC has increased slitely since yesterday. Stated to CTM. Patient is on prednisone 20 mg PO.
[2022-07-22 11:44] LABS: TOTAL CELLS COUNTED 100
[2022-07-22 11:46] LABS: LARGE PLATELETS FEW; PLATELET ESTIMATE NORMAL
--- NOTE | 2022-07-22 18:00 | NUR ---
I have reviewed and agree with interventions, assessments performed, and documentation by Reina Enrique LVN.
--- NOTE | 2022-07-22 18:17 | NUR ---
Reprioritized patients plan of care. NAD at this time. Report given to RYAN Donaldson.
--- NOTE | 2022-07-22 18:30 | NUR ---
Patient in room [facility]. I have received report from VARUN and had the opportunity to ask questions and assume patient care.
[2022-07-22 19:00] VITALS: BP 108/60
[2022-07-22] MEDS: traMADol 50MG tablet PO PRN (19:37)
[2022-07-22 22:00] VITALS: BP 103/62
[2022-07-23 05:00] VITALS: BP 108/65
[2022-07-23] MEDS: traMADol 50MG tablet PO PRN ×2 (05:32→20:29)
--- NOTE | 2022-07-23 06:56 | NUR ---
Problems reprioritized. Patient report given, questions answered & plan of care reviewed with ROBERT.
[2022-07-23] MEDS: ipratropium/albuterol 3ml nebule NEB SCH ×5 (07:31→23:00)
[2022-07-23] MEDS: budesonide 0.5mg/2ml UD nebule IH SCH ×2 (07:32→20:09)
[2022-07-23] MEDS: LIDOcaine 5% patch TP SCH (09:06)
[2022-07-23] MEDS: FLUoxetine 20mg capsule PO SCH (09:07)
[2022-07-23] MEDS: cholecalciferol (vitamin D3) 1,000 unit (25mcg) tablet PO SCH (09:07)
[2022-07-23] MEDS: ascorbic acid 500mg tablet PO SCH ×2 (09:07→20:28)
[2022-07-23] MEDS: ferrous gluconate 324mg tablet PO SCH ×2 (09:08→20:28)
[2022-07-23] MEDS: amLODIPine 5mg tablet PO SCH (09:08)
[2022-07-23] MEDS: predniSONE 20 mg tablet PO SCH (09:08)
[2022-07-23] MEDS: polyethylene glycol 3350 17gm powd pack PO SCH (09:09)
[2022-07-23] MEDS: aspirin 81mg tab.chew PO SCH (09:09)
[2022-07-23] MEDS: tamsulosin 0.4mg capsule PO SCH (09:10)
[2022-07-23] MEDS: enoxaparin 40mg/0.4ml syringe SUBCUT SCH (09:10)
[2022-07-23 10:00] VITALS: BP 138/67
[2022-07-23] MEDS: carVEDilol 12.5mg tablet PO SCH ×2 (11:00→20:27)
--- NOTE | 2022-07-23 11:41 | NUR ---
WHEN ASKED TO WALK WITH NURSING, PATIENT DEFERRED AND SAID HE WOULD LIKE TO WALK AT 1400.
--- NOTE | 2022-07-23 12:45 | NUR ---
During morning med pass, carvedilol was held due to low heart rate of 53 BPM. Heart rate was reassessed at 1100 (62 BPM) and carvedilol was administered.
--- NOTE | 2022-07-23 17:30 | NUR ---
I have reviewed and agree with interventions, assessments, and documentation by Ana Rosa Enrique LVN.
[2022-07-23 19:44] VITALS: BP 110/64
[2022-07-23 22:37] VITALS: BP 90/40
--- NOTE | 2022-07-24 00:14 | NUR ---
Charting by Keisha AUGUSTIN reviewed by Trey Neal RN
--- NOTE | 2022-07-24 06:30 | NUR ---
Patient in room [facility]. I have received report from Debora RN and had the opportunity to ask questions and assume patient care.
[2022-07-24] MEDS: ipratropium/albuterol 3ml nebule NEB SCH ×5 (07:53→23:00)
[2022-07-24] MEDS: budesonide 0.5mg/2ml UD nebule IH SCH ×2 (07:53→19:50)
[2022-07-24] MEDS: ascorbic acid 500mg tablet PO SCH ×2 (08:00→20:41)
[2022-07-24] MEDS: amLODIPine 5mg tablet PO SCH (08:00)
[2022-07-24] MEDS: enoxaparin 40mg/0.4ml syringe SUBCUT SCH (09:27)
[2022-07-24] MEDS: aspirin 81mg tab.chew PO SCH (09:28)
[2022-07-24] MEDS: carVEDilol 12.5mg tablet PO SCH ×2 (09:28→20:41)
[2022-07-24] MEDS: LIDOcaine 5% patch TP SCH (09:28)
[2022-07-24] MEDS: tamsulosin 0.4mg capsule PO SCH (09:29)
[2022-07-24] MEDS: FLUoxetine 20mg capsule PO SCH (09:29)
[2022-07-24] MEDS: ferrous gluconate 324mg tablet PO SCH ×2 (09:29→20:40)
[2022-07-24] MEDS: polyethylene glycol 3350 17gm powd pack PO SCH (09:29)
[2022-07-24] MEDS: cholecalciferol (vitamin D3) 1,000 unit (25mcg) tablet PO SCH (09:31)
[2022-07-24 12:07] VITALS: BP 104/56
--- NOTE | 2022-07-24 16:37 | NUR ---
Patient alert. Vitals stable. No acute changes this shift just waiting approval for facility transfer. Walked 300 feet with nursing staff. Large BM. Continues using urinal. Continent of bowel and bladder. Currently in recline in room. No c/o pain or discomfort. All safety measures in place and call light and fresh water at bedside. Will continue to monitor until report to customs guard.
[2022-07-24 18:00] VITALS: BP 100/65
--- NOTE | 2022-07-24 18:46 | NUR ---
Patient in room [facility]. I have received report from CHELY Oseguera and had the opportunity to ask questions and assume patient care.
--- NOTE | 2022-07-24 19:07 | NUR ---
LEGAL PROCESS SPECIALIST documentation: I have reviewed and agree with all interventions, assessments performed and documented by Ana Rosa MO. No new findings noted.
--- NOTE | 2022-07-24 19:30 | NUR ---
COLLAR SHAPER OPERATOR documentation: I have reviewed and agree with all interventions, assessments performed and documented by Cortney Lira COLLAR SHAPER OPERATOR.
[2022-07-24 21:09] VITALS: BP 100/65
[2022-07-24 22:00] VITALS: BP 90/46
[2022-07-25 06:00] VITALS: BP 136/78
--- NOTE | 2022-07-25 06:12 | NUR ---
Problems reprioritized. Patient report given, questions answered & plan of care reviewed with CHELY KEENAN.
--- NOTE | 2022-07-25 06:38 | NUR ---
Patient in room [facility]. I have received report from CHELY Barr and had the opportunity to ask questions and assume patient care.
[2022-07-25 06:42] LABS: BASOPHILS % (AUTO) 0.2 % (0-1); EOSINOPHILS # (AUTO) 0.3 X10'3 (0-0.9); EOSINOPHILS % (AUTO) 1.7 % (0-6); HEMATOCRIT 38.1 % (42.0-52.0); HEMOGLOBIN 12.4 g/dl (14.0-17.9); LYMPHOCYTES # (AUTO) 5.6 X10'3 (1.1-4.8); LYMPHOCYTES % (AUTO) 35.3 % (21-51); MEAN CORPUSCULAR HGB CONC 32.5 g/dL (33.0-36.5); MEAN CORPUSCULAR VOLUME 92.1 FL (78-98); MEAN PLATELET VOLUME 7.9 FL (7.4-10.4); MONOCYTES # (AUTO) 1.1 X10'3 (0-0.9); NEUTROPHILS # (AUTO) 8.8 X10'3 (1.8-7.7); NEUTROPHILS % (AUTO) 55.8 % (42-75); PLATELET COUNT 392 X10'3 (140-440); RED BLOOD COUNT 4.14 X10'6 (4.70-6.10); RED CELL DISTRIBUTION WIDTH 15.1 % (11.5-14.5); WHITE BLOOD COUNT 15.8 X10'3 (4.5-11.0)
[2022-07-25 06:45] LABS: ALANINE AMINOTRANSFERASE 20 U/L (12-78); ALBUMIN 2.5 G/DL (3.4-5.0); ALBUMIN/GLOBULIN RATIO 0.8 (1.1-1.5); ALKALINE PHOSPHATASE 78 IU/L (46-116); ANION GAP 0 (8-16); ASPARTATE AMINO TRANSFERASE 8 U/L (10-37); BILIRUBIN,TOTAL 0.2 MG/DL (0.1-1.0); BLOOD UREA NITROGEN 44 MG/DL (7-18); BUN/CREATININE RATIO 37.6 (10.0-20.0); CALCIUM 9.2 MG/DL (8.5-10.1); CHLORIDE 102 MMOL/L (99-107); CREATININE 1.17 MG/DL (0.60-1.10); GLUCOSE 90 MG/DL (70-104); POTASSIUM 4.9 MMOL/L (3.5-5.1); SODIUM 140 MMOL/L (135-145); TOTAL PROTEIN 5.7 G/DL (6.4-8.2); eGFR 60 ML/MIN
[2022-07-25] MEDS: ipratropium/albuterol 3ml nebule NEB SCH ×5 (07:28→23:00)
[2022-07-25] MEDS: budesonide 0.5mg/2ml UD nebule IH SCH ×2 (07:28→20:14)
[2022-07-25 07:35] LABS: PLATELET ESTIMATE NORMAL; TOTAL CELLS COUNTED 100
[2022-07-25 07:36] LABS: SMUDGE CELLS 1+
[2022-07-25 07:37] LABS: LARGE PLATELETS FEW
[2022-07-25 07:38] LABS: STOMATOCYTES FEW
[2022-07-25] MEDS: ferrous gluconate 324mg tablet PO SCH ×2 (09:19→20:24)
[2022-07-25] MEDS: carVEDilol 12.5mg tablet PO SCH ×2 (09:20→20:24)
[2022-07-25] MEDS: aspirin 81mg tab.chew PO SCH (09:20)
[2022-07-25] MEDS: FLUoxetine 20mg capsule PO SCH (09:20)
[2022-07-25] MEDS: cholecalciferol (vitamin D3) 1,000 unit (25mcg) tablet PO SCH (09:21)
[2022-07-25] MEDS: tamsulosin 0.4mg capsule PO SCH (09:22)
[2022-07-25] MEDS: amLODIPine 5mg tablet PO SCH (09:22)
[2022-07-25] MEDS: ascorbic acid 500mg tablet PO SCH ×2 (09:25→20:24)
[2022-07-25] MEDS: enoxaparin 40mg/0.4ml syringe SUBCUT SCH (09:26)
[2022-07-25] MEDS: LIDOcaine 5% patch TP SCH (09:27)
[2022-07-25] MEDS: polyethylene glycol 3350 17gm powd pack PO SCH (09:29)
[2022-07-25 10:00] VITALS: BP 121/46
--- NOTE | 2022-07-25 14:54 | NUR ---
BINDER LOCKSTITCH documentation: I have reviewed and agree with all interventions, assessments performed and documented by Yadira Lees LVN.
[2022-07-25 18:00] VITALS: BP 116/60
--- NOTE | 2022-07-25 18:26 | NUR ---
Problems reprioritized. Patient report given, questions answered & plan of care reviewed with CHELY Barr.
--- NOTE | 2022-07-25 18:50 | NUR ---
Patient in room [facility]. I have received report from CHELY KEENAN and had the opportunity to ask questions and assume patient care.
--- NOTE | 2022-07-25 21:00 | NUR ---
AREA PLANT MANAGER documentation: I have reviewed and agree with all interventions, assessments performed and documented by Cortney Lira AREA PLANT MANAGER.
--- NOTE | 2022-07-25 21:00 | NUR ---
DIGESTER OPERATOR documentation: I have reviewed and agree with all interventions, assessments performed and documented by Cortney Lira DIGESTER OPERATOR .
--- NOTE | 2022-07-25 22:27 | NUR ---
Pt refused VS.
[2022-07-26 06:00] VITALS: BP 109/78
--- NOTE | 2022-07-26 06:10 | NUR ---
Problems reprioritized. Patient report given, questions answered & plan of care reviewed with jose miguel israel.
--- NOTE | 2022-07-26 06:46 | NUR ---
Patient in room [facility]. I have received report from CHELY Barr and had the opportunity to ask questions and assume patient care.
[2022-07-26] MEDS: ipratropium/albuterol 3ml nebule NEB SCH ×5 (07:00→23:00)
[2022-07-26] MEDS: budesonide 0.5mg/2ml UD nebule IH SCH ×2 (08:14→20:02)
[2022-07-26] MEDS: tamsulosin 0.4mg capsule PO SCH (09:05)
[2022-07-26] MEDS: ferrous gluconate 324mg tablet PO SCH ×2 (09:05→20:29)
[2022-07-26] MEDS: aspirin 81mg tab.chew PO SCH (09:07)
[2022-07-26] MEDS: FLUoxetine 20mg capsule PO SCH (09:08)
[2022-07-26] MEDS: cholecalciferol (vitamin D3) 1,000 unit (25mcg) tablet PO SCH (09:08)
[2022-07-26] MEDS: ascorbic acid 500mg tablet PO SCH ×2 (09:08→20:28)
[2022-07-26] MEDS: carVEDilol 12.5mg tablet PO SCH ×2 (09:09→20:00)
[2022-07-26] MEDS: amLODIPine 5mg tablet PO SCH (09:11)
[2022-07-26] MEDS: enoxaparin 40mg/0.4ml syringe SUBCUT SCH (09:12)
[2022-07-26] MEDS: LIDOcaine 5% patch TP SCH (09:13)
[2022-07-26] MEDS: polyethylene glycol 3350 17gm powd pack PO SCH (09:16)
[2022-07-26 11:00] VITALS: BP 106/69
--- NOTE | 2022-07-26 16:04 | NUR ---
DUMPER documentation: I have reviewed and agree with all interventions, assessments performed and documented by Yadira Lees LVN.
--- NOTE | 2022-07-26 18:16 | NUR ---
Problems reprioritized. Patient report given, questions answered & plan of care reviewed with CHELY Barr.
--- NOTE | 2022-07-26 18:19 | NUR ---
Patient in room [facility]. I have received report from CHELY May and had the opportunity to ask questions and assume patient care.
[2022-07-26] MEDS: acetaminophen 325mg tablet PO PRN (20:29)
--- NOTE | 2022-07-26 21:00 | NUR ---
SALESPERSON JEWELRY documentation: I have reviewed and agree with all interventions, assessments performed and documented by Cortney Lira SALESPERSON JEWELRY.
[2022-07-27 06:00] VITALS: BP 121/71
--- NOTE | 2022-07-27 06:24 | NUR ---
Problems reprioritized. Patient report given, questions answered & plan of care reviewed with CHELY Montilla.
[2022-07-27] MEDS: budesonide 0.5mg/2ml UD nebule IH SCH ×2 (07:23→19:37)
[2022-07-27] MEDS: ipratropium/albuterol 3ml nebule NEB SCH ×5 (07:23→23:00)
[2022-07-27] MEDS: polyethylene glycol 3350 17gm powd pack PO SCH (08:00)
[2022-07-27] MEDS: tamsulosin 0.4mg capsule PO SCH (09:39)
[2022-07-27] MEDS: aspirin 81mg tab.chew PO SCH (09:40)
[2022-07-27] MEDS: carVEDilol 12.5mg tablet PO SCH ×2 (09:40→20:02)
[2022-07-27] MEDS: cholecalciferol (vitamin D3) 1,000 unit (25mcg) tablet PO SCH (09:40)
[2022-07-27] MEDS: ferrous gluconate 324mg tablet PO SCH ×2 (09:40→20:01)
[2022-07-27] MEDS: FLUoxetine 20mg capsule PO SCH (09:40)
[2022-07-27] MEDS: ascorbic acid 500mg tablet PO SCH ×2 (09:40→20:02)
[2022-07-27] MEDS: LIDOcaine 5% patch TP SCH (09:41)
[2022-07-27] MEDS: amLODIPine 5mg tablet PO SCH (09:41)
[2022-07-27] MEDS: enoxaparin 40mg/0.4ml syringe SUBCUT SCH (09:41)
[2022-07-27] MEDS: traMADol 50MG tablet PO PRN ×2 (09:44→20:05)
--- NOTE | 2022-07-27 11:58 | NUR ---
Reassessment: Pt s/p f/u BSS 07/[address] recs SB6 food with thin liquids. Pt continues eating well, documented with mostly 75-100% PO intake meeting estimated nutrient needs. LBM 07/25 per EMR, with routine bowel care available though pt documented to be refusing at times. No further nutrition intervention implemented at this time. Will continue to follow. Recommendations: 1. Continue SB6 diet with thin liquids per ST recs; discontinue heart healthy restriction 2. Yogurt WB 3. Routine bowel care 4. Weekly scaled weights Addendum: 07/27/22 at [address] Amended: Links added.
--- NOTE | 2022-07-27 14:50 | NUR ---
SHOE FOLDER documentation: I have reviewed and agree with all interventions, assessments performed and documented by Eladia Wayne LVN.
[2022-07-27 18:00] VITALS: BP 107/63
--- NOTE | 2022-07-27 18:21 | NUR ---
Problems reprioritized. Patient report given, questions answered & plan of care reviewed with Medina DAVIS.
[2022-07-27 23:00] VITALS: BP 110/68
[2022-07-28 06:00] VITALS: BP 116/67
[2022-07-28 06:07] LABS: BASOPHILS # (AUTO) 0.1 X10'3 (0-0.2); BASOPHILS % (AUTO) 0.6 % (0-1); EOSINOPHILS # (AUTO) 0.1 X10'3 (0-0.9); EOSINOPHILS % (AUTO) 1.1 % (0-6); HEMATOCRIT 35.5 % (42.0-52.0); HEMOGLOBIN 11.4 g/dl (14.0-17.9); LYMPHOCYTES # (AUTO) 3.3 X10'3 (1.1-4.8); LYMPHOCYTES % (AUTO) 24.8 % (21-51); MEAN CORPUSCULAR HEMOGLOBIN 29.6 PG (27.0-31.0); MEAN CORPUSCULAR HGB CONC 32.1 g/dL (33.0-36.5); MEAN CORPUSCULAR VOLUME 92.3 FL (78-98); MONOCYTES % (AUTO) 7.6 % (2-12); NEUTROPHILS # (AUTO) 8.7 X10'3 (1.8-7.7); NEUTROPHILS % (AUTO) 65.9 % (42-75); PLATELET COUNT 307 X10'3 (140-440); RED BLOOD COUNT 3.85 X10'6 (4.70-6.10); RED CELL DISTRIBUTION WIDTH 15.4 % (11.5-14.5); WHITE BLOOD COUNT 13.2 X10'3 (4.5-11.0)
[2022-07-28 06:24] LABS: ALANINE AMINOTRANSFERASE 21 U/L (12-78); ALBUMIN 2.4 G/DL (3.4-5.0); ALBUMIN/GLOBULIN RATIO 0.8 (1.1-1.5); ALKALINE PHOSPHATASE 77 IU/L (46-116); ANION GAP 1 (8-16); ASPARTATE AMINO TRANSFERASE 15 U/L (10-37); BILIRUBIN,TOTAL 0.2 MG/DL (0.1-1.0); BLOOD UREA NITROGEN 33 MG/DL (7-18); BUN/CREATININE RATIO 31.7 (10.0-20.0); CALCIUM 9.1 MG/DL (8.5-10.1); CHLORIDE 104 MMOL/L (99-107); CREATININE 1.04 MG/DL (0.60-1.10); GLUCOSE 95 MG/DL (70-104); POTASSIUM 4.2 MMOL/L (3.5-5.1); SODIUM 142 MMOL/L (135-145); TOTAL CARBON DIOXIDE 37.1 MMOL/L (24-32); TOTAL PROTEIN 5.6 G/DL (6.4-8.2); eGFR 69 ML/MIN
--- NOTE | 2022-07-28 06:28 | NUR ---
Patient in room [facility]. I have received report from RYAN Haney and had the opportunity to ask questions and assume patient care.
[2022-07-28] MEDS: ipratropium/albuterol 3ml nebule NEB SCH ×5 (07:43→23:00)
[2022-07-28] MEDS: budesonide 0.5mg/2ml UD nebule IH SCH ×2 (07:51→19:12)
[2022-07-28] MEDS: ascorbic acid 500mg tablet PO SCH ×2 (08:10→20:55)
[2022-07-28] MEDS: FLUoxetine 20mg capsule PO SCH (08:10)
[2022-07-28] MEDS: cholecalciferol (vitamin D3) 1,000 unit (25mcg) tablet PO SCH (08:10)
[2022-07-28] MEDS: aspirin 81mg tab.chew PO SCH (08:10)
[2022-07-28] MEDS: enoxaparin 40mg/0.4ml syringe SUBCUT SCH (08:10)
[2022-07-28] MEDS: tamsulosin 0.4mg capsule PO SCH (08:10)
[2022-07-28] MEDS: ferrous gluconate 324mg tablet PO SCH ×2 (08:10→20:55)
[2022-07-28] MEDS: polyethylene glycol 3350 17gm powd pack PO SCH (08:10)
[2022-07-28] MEDS: amLODIPine 5mg tablet PO SCH (08:11)
[2022-07-28] MEDS: carVEDilol 12.5mg tablet PO SCH ×2 (08:11→20:54)
[2022-07-28] MEDS: LIDOcaine 5% patch TP SCH (08:24)
[2022-07-28 10:00] VITALS: BP_SYST 102; BP_SYST 96; BP_DIAS 54; BP_DIAS 65
[2022-07-28 18:00] VITALS: BP 109/65
--- NOTE | 2022-07-28 18:18 | NUR ---
Received report from Britton MO, reprioritized plan of care. Patient checked on, no acute distress at this time. Bed locked, lowest position, call sherwood within reach. Fluids present.
--- NOTE | 2022-07-28 18:19 | NUR ---
Problems reprioritized. Patient report given, questions answered & plan of care reviewed with CHELY Noble.
[2022-07-28] MEDS: acetaminophen 325mg tablet PO PRN (20:55)
--- NOTE | 2022-07-29 03:15 | NUR ---
AGREE WITH DIRECTOR GROUP SALES PHYSICAL ASSESSMENT CHARTED.
[2022-07-29 06:00] VITALS: BP 123/69
--- NOTE | 2022-07-29 06:05 | NUR ---
Report given to CHELY Oseguera. Patient checked on, no acute distress at this time. Bed locked, in lowest position, call sherwood within reach. Fluids present.
[2022-07-29] MEDS: ipratropium/albuterol 3ml nebule NEB SCH ×5 (07:12→22:45)
[2022-07-29] MEDS: budesonide 0.5mg/2ml UD nebule IH SCH ×2 (07:12→20:04)
[2022-07-29] MEDS: ascorbic acid 500mg tablet PO SCH ×2 (08:35→21:24)
[2022-07-29] MEDS: LIDOcaine 5% patch TP SCH (08:35)
[2022-07-29] MEDS: cholecalciferol (vitamin D3) 1,000 unit (25mcg) tablet PO SCH (08:36)
[2022-07-29] MEDS: amLODIPine 5mg tablet PO SCH (08:36)
[2022-07-29] MEDS: tamsulosin 0.4mg capsule PO SCH (08:36)
[2022-07-29] MEDS: FLUoxetine 20mg capsule PO SCH (08:36)
[2022-07-29] MEDS: polyethylene glycol 3350 17gm powd pack PO SCH (08:37)
[2022-07-29] MEDS: carVEDilol 12.5mg tablet PO SCH ×2 (08:37→21:24)
[2022-07-29] MEDS: enoxaparin 40mg/0.4ml syringe SUBCUT SCH (08:37)
[2022-07-29] MEDS: ferrous gluconate 324mg tablet PO SCH ×2 (08:37→21:24)
[2022-07-29] MEDS: aspirin 81mg tab.chew PO SCH (08:37)
[2022-07-29 10:00] VITALS: BP 115/80
--- NOTE | 2022-07-29 12:17 | NUR ---
pt. refused 1100 SVN. No SOB observed
--- NOTE | 2022-07-29 17:04 | NUR ---
1500 SVN triaged-therapist not available
[2022-07-29 18:00] VITALS: BP 103/54
--- NOTE | 2022-07-29 18:00 | NUR ---
I have reviewed and agree with interventions, assessments, and documentation by Ana Rosa Enrique LVN.
--- NOTE | 2022-07-29 18:15 | NUR ---
Patient in room [facility]. I have received report from CHELY JONES and had the opportunity to ask questions and assume patient care.
[2022-07-29 22:00] VITALS: BP 104/53
--- NOTE | 2022-07-30 06:30 | NUR ---
Patient in room [facility]. I have received report from Eladia DAVIS and had the opportunity to ask questions and assume patient care.
--- NOTE | 2022-07-30 06:37 | NUR ---
Problems reprioritized. Patient report given, questions answered & plan of care reviewed with RYAN JONES.
[2022-07-30 06:56] VITALS: BP 106/63
[2022-07-30] MEDS: budesonide 0.5mg/2ml UD nebule IH SCH (07:18)
[2022-07-30] MEDS: ipratropium/albuterol 3ml nebule NEB SCH ×2 (07:18→10:48)
[2022-07-30] MEDS: FLUoxetine 20mg capsule PO SCH (07:19)
[2022-07-30] MEDS: enoxaparin 40mg/0.4ml syringe SUBCUT SCH (07:19)
[2022-07-30] MEDS: LIDOcaine 5% patch TP SCH (07:19)
[2022-07-30] MEDS: aspirin 81mg tab.chew PO SCH (07:19)
[2022-07-30] MEDS: ascorbic acid 500mg tablet PO SCH (07:20)
[2022-07-30] MEDS: cholecalciferol (vitamin D3) 1,000 unit (25mcg) tablet PO SCH (07:20)
[2022-07-30] MEDS: carVEDilol 12.5mg tablet PO SCH (07:20)
[2022-07-30] MEDS: tamsulosin 0.4mg capsule PO SCH (07:20)
[2022-07-30] MEDS: ferrous gluconate 324mg tablet PO SCH (07:20)
[2022-07-30] MEDS: amLODIPine 5mg tablet PO SCH (07:20)
[2022-07-30] MEDS: polyethylene glycol 3350 17gm powd pack PO SCH (07:28)
[2022-07-30 10:00] VITALS: BP 95/75
--- NOTE | 2022-07-30 11:55 | NUR ---
report given to Charge Nurse RN. Moved upstau
[2022-07-30 12:32] LABS: BASOPHILS % (AUTO) 0.4 % (0-1); EOSINOPHILS # (AUTO) 0.1 X10'3 (0-0.9); HEMATOCRIT 37.2 % (42.0-52.0); MEAN CORPUSCULAR HGB CONC 32.3 g/dL (33.0-36.5); MEAN CORPUSCULAR VOLUME 92.9 FL (78-98); MEAN PLATELET VOLUME 7.9 FL (7.4-10.4); MONOCYTES # (AUTO) 0.8 X10'3 (0-0.9); MONOCYTES % (AUTO) 7.9 % (2-12); NEUTROPHILS # (AUTO) 7.4 X10'3 (1.8-7.7); NEUTROPHILS % (AUTO) 71.7 % (42-75); PLATELET COUNT 266 X10'3 (140-440); RED CELL DISTRIBUTION WIDTH 15.9 % (11.5-14.5); WHITE BLOOD COUNT 10.3 X10'3 (4.5-11.0)
== END 2022-07-30 13:50 | DRG 871 ==
LOC: ER 11:58 → ED HOLD 16:17 → SUR 3N 05-08 09:20
PROVIDERS: ADMIT Internal Medicine; ATTEND Internal Medicine
PROC: 5A0935A Assistance with Respiratory Ventilation, Less than 24 Consecutive Hours, High Flow/Velocity Cannula (ICD-10-PCS; principal; 2022-07-15)
DX: A41.59 Other Gram-negative sepsis (principal); E43 Unspecified severe protein-calorie malnutrition; G93.41 Metabolic encephalopathy; J18.9 Pneumonia, unspecified organism; J96.21 Acute and chronic respiratory failure with hypoxia; N30.01 Acute cystitis with hematuria; N17.9 Acute kidney failure, unspecified; Z20.822 Contact with and (suspected) exposure to COVID-19; B96.5 Pseudomonas (aeruginosa) (mallei) (pseudomallei) as the cause of diseases classified elsewhere; D63.8 Anemia in other chronic diseases classified elsewhere; F32.A Depression, unspecified; R77.8 Other specified abnormalities of plasma proteins; W06.XXXA Fall from bed, initial encounter; E78.5 Hyperlipidemia, unspecified; M54.9 Dorsalgia, unspecified; M54.50 Low back pain, unspecified; R19.7 Diarrhea, unspecified; Z60.2 Problems related to living alone; N40.0 Benign prostatic hyperplasia without lower urinary tract symptoms; F03.90 Unspecified dementia, unspecified severity, without behavioral disturbance, psychotic disturbance, mood disturbance, and anxiety; I11.0 Hypertensive heart disease with heart failure; I27.20 Pulmonary hypertension, unspecified; B95.7 Other staphylococcus as the cause of diseases classified elsewhere; J02.9 Acute pharyngitis, unspecified; I50.9 Heart failure, unspecified; B96.1 Klebsiella pneumoniae [K. pneumoniae] as the cause of diseases classified elsewhere; G89.29 Other chronic pain; J43.9 Emphysema, unspecified; K59.00 Constipation, unspecified; Z85.118 Personal history of other malignant neoplasm of bronchus and lung; Z87.891 Personal history of nicotine dependence; Z90.2 Acquired absence of lung [part of]; Z79.899 Other long term (current) drug therapy; Y93.89 Activity, other specified; Y92.89 Other specified places as the place of occurrence of the external cause; Y99.8 Other external cause status; Z79.82 Long term (current) use of aspirin; Z68.26 Body mass index [BMI] 26.0-26.9, adult; Z99.81 Dependence on supplemental oxygen
CPT/HCPCS: 36415; 36600; 71045; 71046; 71250; 74176; 76770; 80048; 80053; 81001; 82803; 83605; 83735; 83880; 84100; 84145; 84443; 84484; 85007; 85008; 85018; 85025; 85027; 85610; 85730; 87040; 87070; 87077; 87081; 87088; 87185; 87186; 87811; 92508; 92616; 93005; 93306; 94640; 94664; 94668; 94760; 96361; 96365; 97110; 97116; 97161; 97530; 99285; A4349; A4615; A4620; A4649; A6212; A6213; A6250; A6258; G0378; J0696; J1650; J1956; J2405; J2930; J7030; J7040; J7512

== ENCOUNTER 2023-01-29 12:14 | Inpatient (IN) | payer OTHER, MEDICARE, MEDICAID ==
[~2023-01-29] VITALS: Ht 172.7 cm; Wt 115.0 kg
[~2023-01-29 12:14] MED LIST changes: +ACET-1131 PO; +ALBU90AE INH; +AMLO10TA PO; -AMLO2.5T2 PO; +ASCO-23 PO; +CARV25TA2 PO; +EMOL396C TOP; +FERR324T23 PO; +FLO0.4C PO; +FURO-150 PO; +GUAI5SYR5 PO; +HYDR-4069 PO; +LISI20TA28 PO; +METH-798 PO; +MOME13HF12 INH; +POLY119P2 PO; -PROP40TA72 PO; -SIMV-42 PO; +TIOT18CA3 PO; +TRAM50TA2 PO
[2023-01-29] MEDS ORDERED: CefTRIAXone 2gm/D5W 50ml BAG 50 ML IV ONE (13:00)
[2023-01-29] MEDS ORDERED: normal saline 1000ML IV soln IV ONE (13:00)
[2023-01-29] MEDS ORDERED: albuterol 2.5 MG/3 ML nebule NEB ONE ×2 (13:00)
[2023-01-29 13:13] VITALS: PULSE 72; RESP 24; O2SAT 91
[2023-01-29 13:37] VITALS: PULSE 75; RESP 22; O2SAT 90
[2023-01-29 14:09] LABS: BASOPHILS % (AUTO) 0.2 % (0-1); EOSINOPHILS % (AUTO) 0 % (0-6); HEMATOCRIT 41.5 % (42.0-52.0); HEMOGLOBIN 13.9 g/dl (14.0-17.9); LYMPHOCYTES # (AUTO) 1.4 X10'3 (1.1-4.8); LYMPHOCYTES % (AUTO) 7.6 % (21-51); MEAN CORPUSCULAR HEMOGLOBIN 30.6 PG (27.0-31.0); MEAN CORPUSCULAR HGB CONC 33.4 g/dL (33.0-36.5); MEAN CORPUSCULAR VOLUME 91.8 FL (78-98); MEAN PLATELET VOLUME 8.3 FL (7.4-10.4); MONOCYTES # (AUTO) 1.2 X10'3 (0-0.9); MONOCYTES % (AUTO) 6.6 % (2-12); NEUTROPHILS # (AUTO) 15.4 X10'3 (1.8-7.7); NEUTROPHILS % (AUTO) 85.6 % (42-75); PLATELET COUNT 234 X10'3 (140-440); RED BLOOD COUNT 4.53 X10'6 (4.70-6.10); RED CELL DISTRIBUTION WIDTH 13.7 % (11.5-14.5); WHITE BLOOD COUNT 17.9 X10'3 (4.5-11.0)
[2023-01-29 14:23] LABS: ALANINE AMINOTRANSFERASE 19 U/L (12-78); ALBUMIN 3.3 G/DL (3.4-5.0); ALBUMIN/GLOBULIN RATIO 0.8 (1.1-1.5); ALKALINE PHOSPHATASE 85 IU/L (46-116); ANION GAP 9 (8-16); ASPARTATE AMINO TRANSFERASE 22 U/L (10-37); BILIRUBIN,TOTAL 0.4 MG/DL (0.1-1.0); BLOOD UREA NITROGEN 30 MG/DL (7-18); BUN/CREATININE RATIO 22.9 (10.0-20.0); CALCIUM 9.9 MG/DL (8.5-10.1); CHLORIDE 100 MMOL/L (99-107); CREATININE 1.31 MG/DL (0.60-1.10); GLUCOSE 141 MG/DL (70-104); POTASSIUM 4.1 MMOL/L (3.5-5.1); SODIUM 139 MMOL/L (135-145); TOTAL CARBON DIOXIDE 30.2 MMOL/L (24-32); TOTAL PROTEIN 7.7 G/DL (6.4-8.2); eCRCL 44 ML/MIN; eGFR 53 ML/MIN
[2023-01-29 14:27] LABS: MAGNESIUM 2.1 MG/DL (1.5-2.4)
[2023-01-29 14:49] LABS: BILIRUBIN,URINE NEGATIVE (Neg); CLARITY,URINE CLOUDY (Clear); COLOR,URINE YELLOW (Yellow); GLUCOSE, URINE NEGATIVE (Neg); KETONES,URINE NEGATIVE (Neg); LEUKOCYTE ESTERASE ,URINE NEGATIVE (Neg); NITRITES, URINE NEGATIVE (Neg); OCCULT BLOOD,URINE TRACE-INTACT (Neg); PROTEIN,URINE 30 mg/dl (Neg); UROBILINOGEN,URINE 0.2 E.U/dL (0.2-1.0)
[2023-01-29 14:55] LABS: UA COLLECTION TYPE FOLEY CATH
[2023-01-29 14:56] LABS: COARSE GRANULAR CAST 0-3 /LPF (NEGATIVE); MUCUS STRANDS FEW /LPF (Neg); SQUAMOUS EPITHELIAL CELL,UR FEW /LPF (FEW)
[2023-01-29 14:57] LABS: BACTERIA,URINE 1+ /HPF (Neg); HYALINE CASTS 0-3 /LPF (NEGATIVE); RBC,URINE 0-2 /HPF (0-2); WBC,URINE 0-4 /HPF (0-4)
[2023-01-29] MEDS ORDERED: azithromycin/NS 500mg/250ml 250 ML IV ONE (15:10)
[2023-01-29] MEDS ORDERED: aspirin 81mg tab.chew PO ONE (15:30)
--- NOTE | 2023-01-29 17:16 | NUR ---
Spoke with daughterEli, this afternoon on the phone.
[2023-01-29] MEDS ORDERED: vancomycin inj 1,000 MG in normal saline 250ml IV soln 250 ML IV ONE (17:35)
[2023-01-29] MEDS ORDERED: ondansetron/PF 4mg/2ml inj IV PRN (17:40)
[2023-01-29] MEDS ORDERED: acetaminophen 325mg tablet PO PRN (17:40)
[2023-01-29] MEDS ORDERED: mag hydrox/Alum hydrox/simeth 30ml oral suspension PO PRN (17:40)
[2023-01-29] MEDS ORDERED: magnesium 2GM in 50ml NS 50 ML IV PRN (17:40)
[2023-01-29] MEDS ORDERED: magnesium 4gm in 100ml NS 100 ML IV PRN (17:40)
[2023-01-29] MEDS ORDERED: magnesium hydroxide 30ml (MOM) UD suspension PO PRN (17:40)
[2023-01-29] MEDS ORDERED: albuterol 2.5 MG/3 ML nebule NEB PRN (17:40)
[2023-01-29] MEDS ORDERED: potassium Cl 40MEQ/1/2NS 520ml 520 ML IV PRN (17:40)
[2023-01-29] MEDS ORDERED: potassium Cl 20 mEq SR tablet PO PRN ×2 (17:40)
[2023-01-29] MEDS ORDERED: methylPREDNISolone sod succ 125mg/2ml vial IV ONE (17:50)
--- NOTE | 2023-01-29 17:57 | NUR ---
MD Harmon paged regarding patient's respiratory status. PT sounding very "wet". Unable to cough up sputumk. SBPS also in low 90's-high 80's at this time. Md Harmon stating he will visit patient bedside.
[2023-01-29] MEDS ORDERED: vancomycin 1,750 MG in NS 350ml IV soln IV ONE (18:10)
[2023-01-29] MEDS ORDERED: furosemide 20 MG/2 ML vial IV ONE (18:15)
[2023-01-29 19:07] LABS: PRO BRAIN NATRIURETIC PEPTIDE 1137 PG/ML (0-450)
[2023-01-29] MEDS: K and/or MAG REPLACEMENT MC SCH (20:00)
[2023-01-29] MEDS: docusate sod 100mg capsule PO SCH (20:00)
[2023-01-29 20:04] LABS: PRO BRAIN NATRIURETIC PEPTIDE 810 PG/ML (0-450)
[2023-01-29] MEDS: enoxaparin 40mg/0.4ml syringe SQ SCH (20:24)
[2023-01-29] MEDS: ipratropium/albuterol 3ml nebule NEB PRN (20:34)
[2023-01-29 20:37] VITALS: PULSE 61; RESP 20; O2SAT 94
[2023-01-29 20:42] VITALS: PULSE 57; RESP 20
[2023-01-29] MEDS: methylPREDNISolone sod succ/PF 40mg inj. IV SCH (21:00)
[2023-01-30] VITALS (15 sets, daily range): BP systolic 116–145; BP diastolic 68–79; PULSE 66–90; RESP 15–24; TEMP 97.7–98.2; O2SAT 93–96
[2023-01-30] MEDS: cefepime 1GM/NS ADD-VANTAGE 100 ML IV SCH ×2 (00:21→11:00)
--- NOTE | 2023-01-30 07:07 | NUR ---
Attempted to call report. Nobody available at this time to take report.
[2023-01-30] MEDS: K and/or MAG REPLACEMENT MC SCH ×2 (08:00→20:00)
[2023-01-30] MEDS: docusate sod 100mg capsule PO SCH ×2 (08:00→20:14)
[2023-01-30] MEDS: vancomycin/NS 1 GM ADD-VANTAGE 250 ML IV SCH ×2 (09:11→20:27)
[2023-01-30] MEDS: methylPREDNISolone sod succ/PF 40mg inj. IV SCH ×3 (09:11→20:13)
[2023-01-30 09:52] LABS: BASOPHILS % (AUTO) 0.1 % (0-1); EOSINOPHILS % (AUTO) 0 % (0-6); HEMATOCRIT 40.7 % (42.0-52.0); HEMOGLOBIN 13.5 g/dl (14.0-17.9); LYMPHOCYTES # (AUTO) 0.8 X10'3 (1.1-4.8); LYMPHOCYTES % (AUTO) 6.5 % (21-51); MEAN CORPUSCULAR HEMOGLOBIN 30.6 PG (27.0-31.0); MEAN CORPUSCULAR HGB CONC 33.3 g/dL (33.0-36.5); MEAN CORPUSCULAR VOLUME 92.1 FL (78-98); MEAN PLATELET VOLUME 8.5 FL (7.4-10.4); MONOCYTES # (AUTO) 0.2 X10'3 (0-0.9); MONOCYTES % (AUTO) 1.6 % (2-12); NEUTROPHILS # (AUTO) 11.2 X10'3 (1.8-7.7); NEUTROPHILS % (AUTO) 91.8 % (42-75); PLATELET COUNT 232 X10'3 (140-440); RED BLOOD COUNT 4.42 X10'6 (4.70-6.10); RED CELL DISTRIBUTION WIDTH 13.8 % (11.5-14.5); WHITE BLOOD COUNT 12.1 X10'3 (4.5-11.0)
[2023-01-30 10:19] LABS: ALANINE AMINOTRANSFERASE 18 U/L (12-78); ALBUMIN 2.8 G/DL (3.4-5.0); ALBUMIN/GLOBULIN RATIO 0.7 (1.1-1.5); ALKALINE PHOSPHATASE 76 IU/L (46-116); ANION GAP 7 (8-16); ASPARTATE AMINO TRANSFERASE 19 U/L (10-37); BILIRUBIN,TOTAL 0.3 MG/DL (0.1-1.0); BLOOD UREA NITROGEN 31 MG/DL (7-18); BUN/CREATININE RATIO 27.4 (10.0-20.0); CALCIUM 9.1 MG/DL (8.5-10.1); CHLORIDE 103 MMOL/L (99-107); CREATININE 1.13 MG/DL (0.60-1.10); GLUCOSE 143 MG/DL (70-104); MAGNESIUM 2.1 MG/DL (1.5-2.4); POTASSIUM 3.7 MMOL/L (3.5-5.1); SODIUM 144 MMOL/L (135-145); TOTAL CARBON DIOXIDE 33.7 MMOL/L (24-32); eCRCL 51 ML/MIN; eGFR 63 ML/MIN
[2023-01-30] MEDS: ipratropium/albuterol 3ml nebule NEB PRN ×2 (11:27→20:38)
[2023-01-30] MEDS ORDERED: acetaminophen 325mg tablet PO PRN (11:40)
[2023-01-30] MEDS ORDERED: Carboxymethylcellulos/Glycerin (Refresh Optive Eye Drops) EACHEYE PRN (12:30)
--- NOTE | 2023-01-30 13:35 | NUR ---
charting reviewed with Student RN Addendum: 01/30/23 at 1336 by Ezra Rodriguez INSTRUCTOR RYAN Amended: Links added.
[2023-01-30] MEDS: mineral oil/petrolatum, white cream 60gm jar TP SCH ×3 (13:57→20:15)
--- NOTE | 2023-01-30 18:22 | NUR ---
Problems reprioritized. Patient report given, questions answered & plan of care reviewed with RYAN Cruz.
[2023-01-30] MEDS: ferrous gluconate 324mg tablet PO SCH (20:13)
[2023-01-30] MEDS: carVEDilol 12.5mg tablet PO SCH (20:14)
[2023-01-30] MEDS: enoxaparin 40mg/0.4ml syringe SQ SCH (20:15)
[2023-01-30] MEDS: guaiFENesin/DM 10ml UD oral syrup PO PRN (20:25)
[2023-01-31] VITALS (8 sets, daily range): BP systolic 99–133; BP diastolic 61–71; PULSE 60–78; RESP 15–24; TEMP 97.6–98.4; O2SAT 92–96
--- NOTE | 2023-01-31 06:00 | NUR ---
reported to days. noted pt turn q2 and dressing changes needed. pt should have SS and DCP today. has bed mold filler in place to keep feet elevated.
--- NOTE | 2023-01-31 06:29 | NUR ---
Patient in room [facility]. I have received report from RYAN Cruz and had the opportunity to ask questions and assume patient care.
[2023-01-31] MEDS: ferrous gluconate 324mg tablet PO SCH ×2 (07:28→20:36)
[2023-01-31] MEDS: cholecalciferol (vitamin D3) 1,000 unit (25mcg) tablet PO SCH (07:29)
[2023-01-31] MEDS: tamsulosin 0.4mg capsule PO SCH (07:29)
[2023-01-31] MEDS: docusate sod 100mg capsule PO SCH ×2 (07:29→20:36)
[2023-01-31] MEDS: FLUoxetine 20mg capsule PO SCH (07:29)
[2023-01-31] MEDS: amLODIPine 5mg tablet PO SCH (07:30)
[2023-01-31] MEDS: aspirin 81mg tab.chew PO SCH (07:30)
[2023-01-31] MEDS: carVEDilol 12.5mg tablet PO SCH ×2 (07:30→20:35)
[2023-01-31] MEDS ORDERED: VANCOMYCIN LEVEL IV ONE (07:30)
[2023-01-31] MEDS: lisinopril 20mg tablet PO SCH (07:30)
[2023-01-31] MEDS: polyethylene glycol 3350 17gm powd pack PO SCH (07:30)
[2023-01-31] MEDS: mineral oil/petrolatum, white cream 60gm jar TP SCH ×4 (07:31→21:05)
[2023-01-31] MEDS: K and/or MAG REPLACEMENT MC SCH ×2 (08:00→20:00)
[2023-01-31 08:43] LABS: BASOPHILS % (AUTO) 0.1 % (0-1); EOSINOPHILS % (AUTO) 0 % (0-6); HEMATOCRIT 38.3 % (42.0-52.0); HEMOGLOBIN 12.5 g/dl (14.0-17.9); LYMPHOCYTES # (AUTO) 1.1 X10'3 (1.1-4.8); LYMPHOCYTES % (AUTO) 7.8 % (21-51); MEAN CORPUSCULAR HEMOGLOBIN 29.7 PG (27.0-31.0); MEAN CORPUSCULAR HGB CONC 32.5 g/dL (33.0-36.5); MEAN CORPUSCULAR VOLUME 91.5 FL (78-98); MEAN PLATELET VOLUME 8.4 FL (7.4-10.4); MONOCYTES # (AUTO) 0.5 X10'3 (0-0.9); MONOCYTES % (AUTO) 3.6 % (2-12); NEUTROPHILS # (AUTO) 12.5 X10'3 (1.8-7.7); NEUTROPHILS % (AUTO) 88.5 % (42-75); PLATELET COUNT 249 X10'3 (140-440); RED BLOOD COUNT 4.19 X10'6 (4.70-6.10); RED CELL DISTRIBUTION WIDTH 13.6 % (11.5-14.5); WHITE BLOOD COUNT 14.1 X10'3 (4.5-11.0)
[2023-01-31 08:56] LABS: ALANINE AMINOTRANSFERASE 16 U/L (12-78); ALBUMIN 2.6 G/DL (3.4-5.0); ALBUMIN/GLOBULIN RATIO 0.7 (1.1-1.5); ALKALINE PHOSPHATASE 75 IU/L (46-116); ANION GAP 6 (8-16); ASPARTATE AMINO TRANSFERASE 25 U/L (10-37); BILIRUBIN,TOTAL 0.3 MG/DL (0.1-1.0); BLOOD UREA NITROGEN 31 MG/DL (7-18); BUN/CREATININE RATIO 28.2 (10.0-20.0); CHLORIDE 104 MMOL/L (99-107); GLUCOSE 141 MG/DL (70-104); POTASSIUM 3.7 MMOL/L (3.5-5.1); SODIUM 141 MMOL/L (135-145); TOTAL CARBON DIOXIDE 30.8 MMOL/L (24-32); TOTAL PROTEIN 6.2 G/DL (6.4-8.2); eCRCL 53 ML/MIN; eGFR 65 ML/MIN
[2023-01-31 08:58] LABS: MAGNESIUM 2.2 MG/DL (1.5-2.4); VANCOMYCIN,TROUGH 21.6 ug/mL (10.0-20.0)
[2023-01-31] MEDS: cefepime 1GM/NS ADD-VANTAGE 100 ML IV SCH (09:09)
[2023-01-31] MEDS: methylPREDNISolone sod succ/PF 40mg inj. IV SCH ×3 (09:09→20:36)
[2023-01-31] MEDS: ipratropium/albuterol 3ml nebule NEB PRN ×2 (10:17→20:49)
[2023-01-31] MEDS: VANCOMYCIN 750MG IV in NS 250 ML IV SCH ×2 (12:52→23:59)
--- NOTE | 2023-01-31 14:30 | NUR ---
Received report from Britton MO. Pt resting with eyes closed.
--- NOTE | 2023-01-31 18:00 | NUR ---
Patient in room [facility]011. I have received report from RYAN Brennan and had the opportunity to ask questions and assume patient care.
[2023-01-31] MEDS: enoxaparin 40mg/0.4ml syringe SQ SCH (20:37)
[2023-01-31] MEDS: guaiFENesin/DM 10ml UD oral syrup PO PRN (20:48)
[2023-01-31] MEDS ORDERED: primidone 50mg tablet PO SCH (21:00)
[2023-01-31] MEDS ORDERED: Melatonin 3mg tablet PO SCH (21:00)
[2023-02-01 06:00] VITALS: BP 139/73; PULSE 76; RESP 20; TEMP 97.3; O2SAT 94
[2023-02-01 06:00] LABS: BASOPHILS % (AUTO) 0.1 % (0-1); EOSINOPHILS % (AUTO) 0 % (0-6); HEMATOCRIT 37.9 % (42.0-52.0); HEMOGLOBIN 12.3 g/dl (14.0-17.9); LYMPHOCYTES # (AUTO) 1.1 X10'3 (1.1-4.8); LYMPHOCYTES % (AUTO) 8.3 % (21-51); MEAN CORPUSCULAR HEMOGLOBIN 29.8 PG (27.0-31.0); MEAN CORPUSCULAR HGB CONC 32.4 g/dL (33.0-36.5); MEAN CORPUSCULAR VOLUME 91.9 FL (78-98); MEAN PLATELET VOLUME 8.5 FL (7.4-10.4); MONOCYTES # (AUTO) 0.5 X10'3 (0-0.9); MONOCYTES % (AUTO) 3.7 % (2-12); NEUTROPHILS # (AUTO) 11.9 X10'3 (1.8-7.7); NEUTROPHILS % (AUTO) 87.9 % (42-75); PLATELET COUNT 262 X10'3 (140-440); RED BLOOD COUNT 4.12 X10'6 (4.70-6.10); RED CELL DISTRIBUTION WIDTH 13.9 % (11.5-14.5); WHITE BLOOD COUNT 13.5 X10'3 (4.5-11.0)
[2023-02-01 06:21] LABS: ALANINE AMINOTRANSFERASE 25 U/L (12-78); ALBUMIN 2.5 G/DL (3.4-5.0); ALBUMIN/GLOBULIN RATIO 0.7 (1.1-1.5); ALKALINE PHOSPHATASE 71 IU/L (46-116); ANION GAP 4 (8-16); ASPARTATE AMINO TRANSFERASE 22 U/L (10-37); BILIRUBIN,TOTAL 0.3 MG/DL (0.1-1.0); BLOOD UREA NITROGEN 38 MG/DL (7-18); BUN/CREATININE RATIO 35.5 (10.0-20.0); CALCIUM 9.2 MG/DL (8.5-10.1); CHLORIDE 106 MMOL/L (99-107); CREATININE 1.07 MG/DL (0.60-1.10); GLUCOSE 154 MG/DL (70-104); MAGNESIUM 2.1 MG/DL (1.5-2.4); POTASSIUM 4.2 MMOL/L (3.5-5.1); SODIUM 140 MMOL/L (135-145); TOTAL CARBON DIOXIDE 29.9 MMOL/L (24-32); TOTAL PROTEIN 5.9 G/DL (6.4-8.2); eCRCL 54 ML/MIN; eGFR 67 ML/MIN
--- NOTE | 2023-02-01 06:50 | NUR ---
Patient in room [facility]011. I have received report from RYAN Truong and had the opportunity to ask questions and assume patient care.
--- NOTE | 2023-02-01 06:55 | NUR ---
Problems reprioritized. Patient report given, questions answered & plan of care reviewed with CHELY Jarquin.
[2023-02-01 07:00] VITALS: RESP 20; O2SAT 94
[2023-02-01] MEDS: polyethylene glycol 3350 17gm powd pack PO SCH (07:36)
[2023-02-01] MEDS: FLUoxetine 20mg capsule PO SCH (07:38)
[2023-02-01] MEDS: cholecalciferol (vitamin D3) 1,000 unit (25mcg) tablet PO SCH (07:38)
[2023-02-01] MEDS: cefepime 1GM/NS ADD-VANTAGE 100 ML IV SCH (07:38)
[2023-02-01] MEDS: docusate sod 100mg capsule PO SCH (07:38)
[2023-02-01] MEDS: methylPREDNISolone sod succ/PF 40mg inj. IV SCH ×2 (07:38→13:00)
[2023-02-01] MEDS: aspirin 81mg tab.chew PO SCH (07:38)
[2023-02-01] MEDS: ferrous gluconate 324mg tablet PO SCH (07:39)
[2023-02-01] MEDS: tamsulosin 0.4mg capsule PO SCH (07:39)
[2023-02-01] MEDS: amLODIPine 5mg tablet PO SCH (07:40)
[2023-02-01] MEDS: lisinopril 20mg tablet PO SCH (07:40)
[2023-02-01] MEDS: carVEDilol 12.5mg tablet PO SCH (07:40)
[2023-02-01] MEDS: mineral oil/petrolatum, white cream 60gm jar TP SCH ×2 (07:46→13:00)
[2023-02-01] MEDS: K and/or MAG REPLACEMENT MC SCH (08:00)
[2023-02-01 10:00] VITALS: BP 113/62; PULSE 97; RESP 20; TEMP 97; O2SAT 94
[2023-02-01] MEDS: ipratropium/albuterol 3ml nebule NEB PRN (11:57)
[2023-02-01 12:01] VITALS: PULSE 91; RESP 20; O2SAT 95
[2023-02-01] MEDS ORDERED: PRIM50TA5 PO (12:03)
[2023-02-01] MEDS ORDERED: CEFD300C3 PO (12:03)
[2023-02-01] MEDS ORDERED: PRED20TA PO (12:03)
[2023-02-01 12:07] VITALS: PULSE 89; RESP 19
[2023-02-01] MEDS: VANCOMYCIN 750MG IV in NS 250 ML IV SCH (12:14)
--- NOTE | 2023-02-01 13:00 | NUR ---
DUCT LAYER SUPERVISOR documentation: I have reviewed and agree with all interventions, assessments performed and documented by Britton Urbina LVN.
--- NOTE | 2023-02-01 14:24 | NUR ---
Pt stable for d/c . Report called to [facility] and given to CHELY Sandoval. Pt left with all belongings. Patient was assisted into wheelchair and left with [facility] personnel in [facility] to go back to [facility]. D/C @ [id number]
[2023-02-01] MEDS ORDERED: VANCOMYCIN LEVEL IV ONE (23:30)
[2023-02-03] MEDS ORDERED: primidone 50mg tablet PO SCH (08:00)
== END 2023-02-01 14:10 | DRG 871 ==
LOC: ER 12:14 → ED HOLD 17:49 → ORTHO 4S 01-30 07:36
PROVIDERS: ADMIT Family Medicine; ATTEND Family Medicine
DX: A41.9 Sepsis, unspecified organism (principal); G93.41 Metabolic encephalopathy; I21.A1 Myocardial infarction type 2; J18.9 Pneumonia, unspecified organism; N17.0 Acute kidney failure with tubular necrosis; J44.0 Chronic obstructive pulmonary disease with (acute) lower respiratory infection; J96.10 Chronic respiratory failure, unspecified whether with hypoxia or hypercapnia; G25.2 Other specified forms of tremor; E78.5 Hyperlipidemia, unspecified; G25.0 Essential tremor; F03.90 Unspecified dementia, unspecified severity, without behavioral disturbance, psychotic disturbance, mood disturbance, and anxiety; I10 Essential (primary) hypertension; Z79.899 Other long term (current) drug therapy; Z79.82 Long term (current) use of aspirin; Z85.118 Personal history of other malignant neoplasm of bronchus and lung; Z90.2 Acquired absence of lung [part of]; Z87.891 Personal history of nicotine dependence; Z99.81 Dependence on supplemental oxygen; Z87.01 Personal history of pneumonia (recurrent); Z87.440 Personal history of urinary (tract) infections
CPT/HCPCS: 36415; 71045; 71250; 80053; 80202; 81001; 83605; 83735; 83880; 84145; 84484; 85025; 87040; 87081; 92508; 92616; 93005; 94640; 94760; 97116; 97161; 97530; 99285; A4615; A5200; A6212; C1758; G0378; J0456; J0692; J0696; J1650; J1940; J2920; J2930; J3370; J7030; J7040; J7050

== ENCOUNTER 2023-03-09 07:47 | Inpatient (IN) | payer OTHER, MEDICARE, MEDICAID ==
[2023-03-09] VITALS (8 sets, daily range): BP systolic 112–156; BP diastolic 55–76; PULSE 60–63; RESP 14–20; TEMP 97.5–98; O2SAT 94–99
[~2023-03-09] VITALS: Ht 172.7 cm; Wt 74.0 kg
[~2023-03-09 07:47] MED LIST changes: -ASCO-23 PO; +CEFD300C3 PO; -FURO-150 PO; -HYDR-4069 PO; +IPRA3AMP9 NEB; -METH-798 PO; +PRED20TA PO; +PRIM50TA5 PO; -TRAM50TA2 PO; -TRIA15CR61 TOP
[2023-03-09 08:20] LABS: BASOPHILS # (AUTO) 0.1 X10'3 (0-0.2); EOSINOPHILS # (AUTO) 0.1 X10'3 (0-0.9); EOSINOPHILS % (AUTO) 1.5 % (0-6); HEMOGLOBIN 13.5 g/dl (14.0-17.9); LYMPHOCYTES # (AUTO) 2.4 X10'3 (1.1-4.8); LYMPHOCYTES % (AUTO) 25.6 % (21-51); MEAN CORPUSCULAR HEMOGLOBIN 31.6 PG (27.0-31.0); MEAN CORPUSCULAR HGB CONC 33.6 g/dL (33.0-36.5); MEAN CORPUSCULAR VOLUME 93.9 FL (78-98); MEAN PLATELET VOLUME 8.5 FL (7.4-10.4); MONOCYTES # (AUTO) 0.7 X10'3 (0-0.9); MONOCYTES % (AUTO) 6.9 % (2-12); NEUTROPHILS # (AUTO) 6.2 X10'3 (1.8-7.7); PLATELET COUNT 338 X10'3 (140-440); RED BLOOD COUNT 4.26 X10'6 (4.70-6.10); RED CELL DISTRIBUTION WIDTH 15.6 % (11.5-14.5); WHITE BLOOD COUNT 9.5 X10'3 (4.5-11.0)
[2023-03-09] MEDS ORDERED: CefTRIAXone 2gm/D5W 50ml BAG 50 ML IV ONE (08:20)
[2023-03-09] MEDS ORDERED: azithromycin/NS 500mg/250ml 250 ML IV ONE (08:20)
[2023-03-09] MEDS ORDERED: normal saline 1000ML IV soln IVB ONE ×2 (08:20)
[2023-03-09] MEDS ORDERED: methylPREDNISolone sod succ 125mg/2ml vial IV ONE (08:20)
[2023-03-09] MEDS ORDERED: albuterol 2.5 MG/3 ML nebule NEB ONE (08:20)
[2023-03-09 08:28] LABS: APTT 30 SECONDS (22-32); PROTHROMBIN TIME 10.8 SECONDS (9.0-12.0)
[2023-03-09 09:11] LABS: ALANINE AMINOTRANSFERASE 61 U/L (12-78); ALBUMIN 2.7 G/DL (3.4-5.0); ALBUMIN/GLOBULIN RATIO 0.6 (1.1-1.5); ALKALINE PHOSPHATASE 115 IU/L (46-116); ANION GAP 1 (8-16); ASPARTATE AMINO TRANSFERASE 38 U/L (10-37); BILIRUBIN,TOTAL 0.3 MG/DL (0.1-1.0); BLOOD UREA NITROGEN 11 MG/DL (7-18); CALCIUM 9.4 MG/DL (8.5-10.1); CHLORIDE 104 MMOL/L (99-107); GLUCOSE 102 MG/DL (70-104); POTASSIUM 4.1 MMOL/L (3.5-5.1); PRO BRAIN NATRIURETIC PEPTIDE 393 PG/ML (0-450); SODIUM 143 MMOL/L (135-145); TOTAL CARBON DIOXIDE 37.6 MMOL/L (24-32); TOTAL PROTEIN 6.9 G/DL (6.4-8.2); eCRCL 58 ML/MIN; eGFR 72 ML/MIN
[2023-03-09] MEDS ORDERED: magnesium hydroxide 30ml (MOM) UD suspension PO PRN (11:40)
[2023-03-09] MEDS ORDERED: acetaminophen 325mg tablet PO PRN ×2 (11:40)
[2023-03-09] MEDS ORDERED: morphine 2 MG/ML inj. syringe IV PRN ×2 (11:40)
[2023-03-09] MEDS ORDERED: mag hydrox/Alum hydrox/simeth 30ml oral suspension PO PRN (11:40)
[2023-03-09] MEDS ORDERED: ondansetron/PF 4mg/2ml inj IV PRN (11:40)
[2023-03-09] MEDS ORDERED: DOCU100C40 PO (11:49)
[2023-03-09] MEDS ORDERED: BISA10SU64 RC (11:51)
[2023-03-09] MEDS ORDERED: MAGN400O6 PO (11:52)
[2023-03-09] MEDS ORDERED: BUDE0.253 NEB (11:55)
[2023-03-09] MEDS ORDERED: PPD ID (11:55)
[2023-03-09] MEDS: vancomycin/NS 1 GM ADD-VANTAGE 250 ML IV SCH (12:35)
[2023-03-09] MEDS ORDERED: ipratropium/albuterol 3ml nebule NEB PRN (13:10)
[2023-03-09] MEDS ORDERED: guaiFENesin/DM 10ml UD oral syrup PO PRN (13:10)
[2023-03-09] MEDS ORDERED: non-formulary drug (Albuterol Sulfate (Proair Respiclick) 2 PUFFS) INH PRN (13:10)
[2023-03-09] MEDS: cefepime 1GM/NS ADD-VANTAGE 100 ML IV SCH ×2 (16:30→23:35)
[2023-03-09] MEDS: docusate sod 100mg capsule PO SCH (19:38)
[2023-03-09] MEDS: carVEDilol 12.5mg tablet PO SCH (19:38)
[2023-03-09] MEDS: ferrous gluconate 324mg tablet PO SCH (19:39)
[2023-03-09] MEDS ORDERED: docusate sod 100mg capsule PO SCH (20:00)
[2023-03-09] MEDS ORDERED: BUDESONIDE NEB SCH (20:00)
[2023-03-09] MEDS: budesonide 0.5mg/2ml UD nebule IH SCH (20:17)
[2023-03-09] MEDS: mineral oil/petrolatum, white cream 60gm jar TP SCH ×2 (23:29→23:40)
[2023-03-09] MEDS: primidone 50mg tablet PO SCH (23:29)
[2023-03-10] VITALS (12 sets, daily range): BP systolic 115–147; BP diastolic 56–69; PULSE 60–70; RESP 14–22; TEMP 96.9–98.2; O2SAT 96–100
[2023-03-10] MEDS: vancomycin/NS 1 GM ADD-VANTAGE 250 ML IV SCH ×2 (00:22→12:03)
[2023-03-10 06:03] LABS: BASOPHILS # (AUTO) 0.1 X10'3 (0-0.2); BASOPHILS % (AUTO) 0.8 % (0-1); EOSINOPHILS # (AUTO) 0.1 X10'3 (0-0.9); EOSINOPHILS % (AUTO) 1.7 % (0-6); HEMATOCRIT 36.5 % (42.0-52.0); LYMPHOCYTES # (AUTO) 1.9 X10'3 (1.1-4.8); LYMPHOCYTES % (AUTO) 22.3 % (21-51); MEAN CORPUSCULAR HEMOGLOBIN 30.7 PG (27.0-31.0); MEAN CORPUSCULAR HGB CONC 32.7 g/dL (33.0-36.5); MEAN CORPUSCULAR VOLUME 93.7 FL (78-98); MEAN PLATELET VOLUME 9.3 FL (7.4-10.4); MONOCYTES # (AUTO) 0.9 X10'3 (0-0.9); MONOCYTES % (AUTO) 10.1 % (2-12); NEUTROPHILS # (AUTO) 5.7 X10'3 (1.8-7.7); NEUTROPHILS % (AUTO) 65.1 % (42-75); PLATELET COUNT 293 X10'3 (140-440); RED CELL DISTRIBUTION WIDTH 15.6 % (11.5-14.5); WHITE BLOOD COUNT 8.8 X10'3 (4.5-11.0)
[2023-03-10 06:30] LABS: ALBUMIN 2.3 G/DL (3.4-5.0); ANION GAP 5 (8-16); BLOOD UREA NITROGEN 13 MG/DL (7-18); BUN/CREATININE RATIO 12.9 (10.0-20.0); CALCIUM 8.7 MG/DL (8.5-10.1); CHLORIDE 107 MMOL/L (99-107); CREATININE 1.01 MG/DL (0.60-1.10); GLUCOSE 98 MG/DL (70-104); SODIUM 143 MMOL/L (135-145); TOTAL CARBON DIOXIDE 31.3 MMOL/L (24-32); eCRCL 57 ML/MIN; eGFR 71 ML/MIN
[2023-03-10] MEDS: bisacodyl 10mg suppository rectal RC SCH (08:00)
[2023-03-10] MEDS ORDERED: magnesium hydroxide 30ml (MOM) UD suspension PO SCH (08:00)
[2023-03-10] MEDS ORDERED: polyethylene glycol 3350 17gm powd pack PO PRN (08:00)
[2023-03-10] MEDS ORDERED: CARBOXYMETHYLCELLULOS OP PRN (08:00)
[2023-03-10] MEDS ORDERED: GLYCERIN OP PRN (08:00)
[2023-03-10] MEDS: amLODIPine 5mg tablet PO SCH (08:15)
[2023-03-10] MEDS: FLUoxetine 20mg capsule PO SCH (08:15)
[2023-03-10] MEDS: lisinopril 20mg tablet PO SCH (08:16)
[2023-03-10] MEDS: tamsulosin 0.4mg capsule PO SCH (08:16)
[2023-03-10] MEDS: docusate sod 100mg capsule PO SCH ×2 (08:16→21:23)
[2023-03-10] MEDS: ferrous gluconate 324mg tablet PO SCH ×2 (08:16→21:23)
[2023-03-10] MEDS: carVEDilol 12.5mg tablet PO SCH ×2 (08:16→21:23)
[2023-03-10] MEDS: aspirin 81mg tab.chew PO SCH (08:16)
[2023-03-10] MEDS: cholecalciferol (vitamin D3) 1,000 unit (25mcg) tablet PO SCH (08:16)
[2023-03-10] MEDS: mineral oil/petrolatum, white cream 60gm jar TP SCH ×4 (08:17→21:24)
[2023-03-10] MEDS: enoxaparin 40mg/0.4ml syringe SUBCUT SCH (08:17)
[2023-03-10] MEDS: budesonide 0.5mg/2ml UD nebule IH SCH ×2 (08:36→20:09)
[2023-03-10] MEDS: albuterol 2.5 MG/3 ML nebule NEB PRN ×2 (08:36→14:49)
[2023-03-10] MEDS: cefepime 1GM/NS ADD-VANTAGE 100 ML IV SCH ×2 (08:49→15:18)
[2023-03-10] MEDS: ipratropium 0.5 MG/2.5ML nebule IH SCH (20:09)
[2023-03-10] MEDS: primidone 50mg tablet PO SCH (21:24)
[2023-03-10] MEDS ORDERED: VANCOMYCIN LEVEL IV ONE (23:30)
[2023-03-11] VITALS (11 sets, daily range): BP systolic 123–158; BP diastolic 63–77; PULSE 56–72; RESP 14–20; TEMP 96.5–97.9; O2SAT 93–98
[2023-03-11] MEDS: cefepime 1GM/NS ADD-VANTAGE 100 ML IV SCH ×4 (00:05→23:37)
[2023-03-11] MEDS: vancomycin/NS 1 GM ADD-VANTAGE 250 ML IV SCH ×2 (00:52→12:36)
[2023-03-11] MEDS: ipratropium 0.5 MG/2.5ML nebule IH SCH ×4 (02:00→20:40)
[2023-03-11 06:15] LABS: BASOPHILS # (AUTO) 0.1 X10'3 (0-0.2); BASOPHILS % (AUTO) 1.1 % (0-1); EOSINOPHILS # (AUTO) 0.2 X10'3 (0-0.9); EOSINOPHILS % (AUTO) 3.3 % (0-6); HEMATOCRIT 36.3 % (42.0-52.0); HEMOGLOBIN 11.9 g/dl (14.0-17.9); LYMPHOCYTES % (AUTO) 26.9 % (21-51); MEAN CORPUSCULAR HEMOGLOBIN 30.8 PG (27.0-31.0); MEAN CORPUSCULAR HGB CONC 32.9 g/dL (33.0-36.5); MEAN CORPUSCULAR VOLUME 93.6 FL (78-98); MEAN PLATELET VOLUME 8.9 FL (7.4-10.4); MONOCYTES # (AUTO) 0.6 X10'3 (0-0.9); MONOCYTES % (AUTO) 7.8 % (2-12); NEUTROPHILS # (AUTO) 4.5 X10'3 (1.8-7.7); NEUTROPHILS % (AUTO) 60.9 % (42-75); PLATELET COUNT 279 X10'3 (140-440); RED BLOOD COUNT 3.88 X10'6 (4.70-6.10); RED CELL DISTRIBUTION WIDTH 15.6 % (11.5-14.5); WHITE BLOOD COUNT 7.3 X10'3 (4.5-11.0)
[2023-03-11 06:32] LABS: ALBUMIN 2.4 G/DL (3.4-5.0); ANION GAP 3 (8-16); BLOOD UREA NITROGEN 8 MG/DL (7-18); BUN/CREATININE RATIO 8.7 (10.0-20.0); CALCIUM 8.9 MG/DL (8.5-10.1); CHLORIDE 107 MMOL/L (99-107); CREATININE 0.92 MG/DL (0.60-1.10); GLUCOSE 102 MG/DL (70-104); POTASSIUM 3.6 MMOL/L (3.5-5.1); SODIUM 143 MMOL/L (135-145); TOTAL CARBON DIOXIDE 33.5 MMOL/L (24-32); eCRCL 63 ML/MIN; eGFR 79 ML/MIN
[2023-03-11] MEDS: ferrous gluconate 324mg tablet PO SCH ×2 (07:20→20:54)
[2023-03-11] MEDS: docusate sod 100mg capsule PO SCH ×2 (07:21→20:54)
[2023-03-11] MEDS: aspirin 81mg tab.chew PO SCH (07:21)
[2023-03-11] MEDS: FLUoxetine 20mg capsule PO SCH (07:21)
[2023-03-11] MEDS: amLODIPine 5mg tablet PO SCH (07:22)
[2023-03-11] MEDS: carVEDilol 12.5mg tablet PO SCH ×2 (07:22→20:55)
[2023-03-11] MEDS: tamsulosin 0.4mg capsule PO SCH (07:22)
[2023-03-11] MEDS: mineral oil/petrolatum, white cream 60gm jar TP SCH ×4 (07:23→20:55)
[2023-03-11] MEDS: bisacodyl 10mg suppository rectal RC SCH (07:23)
[2023-03-11] MEDS: lisinopril 20mg tablet PO SCH (07:23)
[2023-03-11] MEDS: cholecalciferol (vitamin D3) 1,000 unit (25mcg) tablet PO SCH (07:23)
[2023-03-11] MEDS: enoxaparin 40mg/0.4ml syringe SUBCUT SCH (07:26)
[2023-03-11] MEDS: budesonide 0.5mg/2ml UD nebule IH SCH ×2 (09:07→20:40)
[2023-03-11] MEDS: primidone 50mg tablet PO SCH (20:55)
[2023-03-12] MEDS: ipratropium 0.5 MG/2.5ML nebule IH SCH ×2 (03:14→07:41)
[2023-03-12 06:00] VITALS: BP 149/69; PULSE 58; RESP 16; TEMP 97.4; O2SAT 96
[2023-03-12 07:41] VITALS: PULSE 65; RESP 18; O2SAT 91
[2023-03-12] MEDS: budesonide 0.5mg/2ml UD nebule IH SCH (07:41)
[2023-03-12 07:50] VITALS: PULSE 57; RESP 16
[2023-03-12] MEDS: cefepime 1GM/NS ADD-VANTAGE 100 ML IV SCH (07:59)
[2023-03-12] MEDS: cholecalciferol (vitamin D3) 1,000 unit (25mcg) tablet PO SCH (07:59)
[2023-03-12] MEDS: FLUoxetine 20mg capsule PO SCH (07:59)
[2023-03-12] MEDS: bisacodyl 10mg suppository rectal RC SCH (08:00)
[2023-03-12] MEDS: enoxaparin 40mg/0.4ml syringe SUBCUT SCH (08:01)
[2023-03-12] MEDS: docusate sod 100mg capsule PO SCH (08:01)
[2023-03-12] MEDS: tamsulosin 0.4mg capsule PO SCH (08:01)
[2023-03-12] MEDS: ferrous gluconate 324mg tablet PO SCH (08:02)
[2023-03-12] MEDS: carVEDilol 12.5mg tablet PO SCH (08:02)
[2023-03-12] MEDS: lisinopril 20mg tablet PO SCH (08:02)
[2023-03-12] MEDS: aspirin 81mg tab.chew PO SCH (08:02)
[2023-03-12] MEDS: HYDROcodone/acetaminophen 5mg/325mg tablet PO PRN ×2 (08:16→12:57)
[2023-03-12 08:17] VITALS: BP_SYST 150; PULSE 62
[2023-03-12] MEDS: amLODIPine 5mg tablet PO SCH (08:17)
[2023-03-12 08:18] LABS: BASOPHILS # (AUTO) 0.1 X10'3 (0-0.2); BASOPHILS % (AUTO) 1.1 % (0-1); EOSINOPHILS # (AUTO) 0.3 X10'3 (0-0.9); EOSINOPHILS % (AUTO) 3.5 % (0-6); HEMATOCRIT 37.3 % (42.0-52.0); HEMOGLOBIN 12.1 g/dl (14.0-17.9); LYMPHOCYTES # (AUTO) 2.3 X10'3 (1.1-4.8); LYMPHOCYTES % (AUTO) 31.4 % (21-51); MEAN CORPUSCULAR HEMOGLOBIN 30.3 PG (27.0-31.0); MEAN CORPUSCULAR HGB CONC 32.4 g/dL (33.0-36.5); MEAN CORPUSCULAR VOLUME 93.7 FL (78-98); MONOCYTES # (AUTO) 0.8 X10'3 (0-0.9); MONOCYTES % (AUTO) 10.3 % (2-12); NEUTROPHILS # (AUTO) 3.9 X10'3 (1.8-7.7); NEUTROPHILS % (AUTO) 53.7 % (42-75); PLATELET COUNT 278 X10'3 (140-440); RED BLOOD COUNT 3.98 X10'6 (4.70-6.10); RED CELL DISTRIBUTION WIDTH 15.7 % (11.5-14.5); WHITE BLOOD COUNT 7.3 X10'3 (4.5-11.0)
[2023-03-12] MEDS: mineral oil/petrolatum, white cream 60gm jar TP SCH (08:18)
[2023-03-12 08:49] LABS: ALBUMIN 2.2 G/DL (3.4-5.0); ANION GAP 9 (8-16); BLOOD UREA NITROGEN 11 MG/DL (7-18); BUN/CREATININE RATIO 12.6 (10.0-20.0); CALCIUM 8.7 MG/DL (8.5-10.1); CHLORIDE 105 MMOL/L (99-107); CREATININE 0.87 MG/DL (0.60-1.10); GLUCOSE 97 MG/DL (70-104); POTASSIUM 3.8 MMOL/L (3.5-5.1); SODIUM 140 MMOL/L (135-145); TOTAL CARBON DIOXIDE 26.4 MMOL/L (24-32); eCRCL 67 ML/MIN; eGFR 85 ML/MIN
[2023-03-12] MEDS: vancomycin/NS 1 GM ADD-VANTAGE 250 ML IV SCH ×2 (12:57)
== END 2023-03-12 13:25 | DRG 193 ==
LOC: ER 07:48 → ED HOLD 11:38 → EDBEDREQ 16:31 → ORTHO 4S 17:28
PROVIDERS: ADMIT Internal Medicine; ATTEND Internal Medicine
DX: J18.9 Pneumonia, unspecified organism (principal); I21.A1 Myocardial infarction type 2; J96.01 Acute respiratory failure with hypoxia; J44.0 Chronic obstructive pulmonary disease with (acute) lower respiratory infection; J44.1 Chronic obstructive pulmonary disease with (acute) exacerbation; I50.32 Chronic diastolic (congestive) heart failure; I11.0 Hypertensive heart disease with heart failure; Z20.822 Contact with and (suspected) exposure to COVID-19; N40.0 Benign prostatic hyperplasia without lower urinary tract symptoms; Y95 Nosocomial condition; Z79.82 Long term (current) use of aspirin; Z79.899 Other long term (current) drug therapy; Z87.891 Personal history of nicotine dependence; Z85.118 Personal history of other malignant neoplasm of bronchus and lung
CPT/HCPCS: 36415; 71045; 71250; 80048; 80053; 80202; 83605; 83880; 84145; 84484; 85025; 85610; 85730; 87040; 87081; 87502; 87503; 87811; 94640; 94760; 97161; 97530; 97535; 99285; A4349; G0378; J0456; J0692; J0696; J1650; J2930; J3370; J7030